=== PATIENT | female | born 1965 | race Caucasian/White ===

== ENCOUNTER 2021-10-25 21:06 | Inpatient (IN) | payer MEDICAID, SELFPAY ==
[2021-10-25] VITALS (16 sets, daily range): BP systolic 217–282; BP diastolic 122–180; PULSE 64–94; RESP 13–31; TEMP 36.8–36.9; O2SAT 97
--- NOTE | ~2021-10-25 | XR_ITS ---
EXAMINATION: XR chest 2V EXAM DATE: 10/25/2021 22:20 INDICATION: Dyspnea x1week, epigastric pain [id number] TECHNIQUE: Frontal and lateral projections of the chest obtained and reviewed. There is no prior alaina dy for comparison. FINDINGS: The lungs are hyperinflated which can be seen with chronic obstructive pulmonary disease ( a clinical diagnosis of functional impairment), but is not diagnostic of it. Moderate cardiomegaly. N o confluent consolidation, pneumothorax or pleural effusion suspected. There are no osseous abnormali ties identified. IMPRESSION: 1. Cardiomegaly. 2. Hyperinflation. Reviewed, dictated and finalized at location G. TEACHER
--- NOTE | ~2021-10-25 | US_ITS ---
EXAMINATION: US retroperitoneal duplex ltd DATE: 10/31/2021 14:35 INDICATION: Uncontrolled hypertension TECHNIQUE: Multiple grayscale, color Doppler, and pulsed Doppler images of the kidneys and renal morena johanny were obtained. COMPARISON: None. FINDINGS: The aorta peak systolic velocity is 98 cm/s. The right renal artery peak systolic velocity is 57 cm/s in the proximal segment, 118 cm/s in the mid segment, and 71 cm/s in the distal segment. The left re nal artery peak systolic velocity is 133 cm/s in the proximal segment, 129 cm/s in the mid segment, a nd 100 cm/s in the distal segment. No hydronephrosis in either kidney. IMPRESSION: 1. No Doppler evidence of renal artery stenosis. Reviewed, dictated and finalized at location A. ERTY LOSS INSURANCE CLAIM ADJUSTER
--- NOTE | ~2021-10-25 | XR_ITS ---
XR chest 1V portable 10/31/2021 09:55 Indication: Shortness of breath Procedure: AP portable chest Comparison: Comparison to multiple prior studies sequentially, with oldest reviewed study dated 09/2009. Findings: Cardiomegaly. No focal air space disease, pulmonary edema, pleural effusion or suspected pn eumothorax. No acute osseous abnormality. Impression: 1: No acute cardiopulmonary disease. Reviewed, dictated and finalized at location B. Impression: 1: No acute cardiopulmonary disease.
--- NOTE | ~2021-10-25 | US_ITS ---
US abdomen limited INDICATION: Cholecystitis PROCEDURE: Realtime right upper abdominal ultrasound. COMPARISON: No prior studies for comparison. FINDINGS: The pancreas is normal without focal mass or pancreatic ductal dilation. Liver echotexture is normal without focal mass or intrahepatic biliary dilatation. There are calcifications in the ivonne er, consistent with chronic granulomatous disease. There is normal directional flow in the portal vei n. There is a gallstone with mild gallbladder wall thickening. Common bile duct measures 8 mm. There is mild intrahepatic biliary dilatation. No sonographic Lucas's sign. IMPRESSION: 1: Cholelithiasis with gallbladder wall thickening and mild intrahepatic and extrahepatic biliary dil atation. Reviewed, dictated and finalized at location A. T BUYER IMPRESSION: 1: Cholelithiasis with gallbladder wall thickening and mild intrahepatic and ex trahepatic biliary dilatation.
--- NOTE | ~2021-10-25 | XR_ITS ---
EXAMINATION: XR chest 1V portable EXAM DATE: 11/02/2021 05:31 INDICATION: SOB TECHNIQUE: Portable AP frontal chest x-ray was obtained. Comparison is made to prior examination from 10/31/2021. FINDINGS: Linear left midlung zone atelectasis. The lungs are otherwise clear. Mild cardiomegaly. The re is aortic arteriosclerosis. There is no pneumothorax suspected. There are no pleural effusions. Th ere are no osseous abnormalities identified. IMPRESSION: Linear left midlung zone atelectasis. Reviewed, dictated and finalized at location A. ISHER
--- NOTE | ~2021-10-25 | CT_ITS ---
EXAMINATION: CT brain wo con DATE: 10/26/2021 09:36 INDICATION: Nausea and vomiting TECHNIQUE: Computed tomography (CT) of the head was performed without intravenous contrast. Sagittal and coronal reconstructions were performed. The mA was adjusted according to patient size. Iterative reconstruction technique was employed. The dose-length product was 681.00 mGy-cm. COMPARISON: None FINDINGS: No acute intracranial hemorrhage, acute infarction or abnormal extra axial fluid collection. There is moderate scattered white matter hypoattenuation consistent with chronic small vessel ischemic diseas e. Ventricles are normal and symmetric. No mass/mass effect. The orbits, paranasal sinuses and masto id air cells are normal. Intracranial calcified cerebral atherosclerosis is noted at the carotid siph ons. IMPRESSION: 1. Moderate scattered white matter hypoattenuation consistent with chronic small vessel ischemic dise ase. Reviewed, dictated and finalized at location A. TURNER IMPRESSION: 1. Moderate scattered white matter hypoattenuation consistent with chronic smal l vessel ischemic disease.
--- NOTE | ~2021-10-25 | CT_ITS ---
EXAMINATION: CT abdomen pelvis wo con DATE: 10/26/2021 09:36 INDICATION: Nausea and vomiting TECHNIQUE: Computed tomography (CT) of the abdomen and pelvis was performed without intravenous contr ast. Automated exposure control and iterative reconstruction technique were employed. The dose-length product was 661.02 mGy-cm. COMPARISON: None FINDINGS: Mild atelectasis at the bilateral lung bases. Mild cardiomegaly. Atherosclerotic coronary artery calc ification. No pericardial effusion. Large gallstone at the neck of the gallbladder with subtle hazine ss to the pericholecystic fat at the fundus suspicious for acute cholecystitis. Liver, spleen, bilate ral adrenal glands and kidneys are normal. Moderate fatty atrophy of the pancreas. There is mild colo jeny diverticulosis with a sigmoid predominance. There is no adjacent inflammatory change to suggest diverticulitis. Small bowel and appendix are normal. Bladder, uterus and bilateral adnexa are unremar kable. Small amount of likely physiologic free fluid in the pelvis. Mild thoracolumbar spondylosis. IMPRESSION: 1. Cholelithiasis and likely associated acute cholecystitis. Correlate for Lucas sign and could cons ider HIDA scan for further evaluation as clinically indicated. 2. Cardiomegaly. Reviewed, dictated and finalized at location A. BORER IMPRESSION: 1. Cholelithiasis and likely associated acute cholecystitis. Correlate for Murp hy sign and could consider HIDA scan for further evaluation as clinically indic ated. 2. Cardiomegaly.
--- NOTE | ~2021-10-25 | CT_ITS ---
EXAMINATION: CTA chest PE protocol DATE: 10/30/2021 15:29 INDICATION: Hypoxia. TECHNIQUE: Computed tomography (CT) pulmonary angiogram of the chest was performed with 100 mL Omnipa que-350 intravenous contrast. Additional 3D reconstructions utilizing coronal maximum intensity proje ction (MIP) were performed. Automated exposure control and iterative reconstruction technique were em ployed. The dose-length product was 494.90 mGy-cm. COMPARISON: None FINDINGS: Excellent contrast opacification of the pulmonary arteries. There is mild streak artifact from dense contrast in the superior vena cava and right atrium. Minimal scattered motion artifact which does not significantly limit evaluation. No pulmonary embolism. Mild emphysema. Smooth septal line thickening at the right lung base consistent with mild pulmonary edema. Small right pleural effusion. Mild atel ectasis at the basilar left lower lobe and lingula. No pneumonia or left pleural effusion. Cardiomega ly with left ventricular hypertrophy. The thickened anteroseptal wall of the left ventricle appears t o narrow the left ventricular outflow tract relative to the diameter of the aortic valve suggesting p otential for obstructive hypertrophic cardiomyopathy. Mitral annular and both aortic valve and mitral valve calcifications. Atherosclerotic coronary artery calcification. Thoracic aorta is normal in lauri iber with no dissection. No pathologically enlarged thoracic lymphadenopathy. Visualized upper abdome n is unremarkable. There are bridging osteophytes at multiple levels in the spine, consistent with di ffuse idiopathic skeletal hyperostosis (DISH). IMPRESSION: 1. No pulmonary edema present. 2. Mild pulmonary edema at the right lung base and small right pleural effusion likely related to con gestive heart failure. 3. Cardiomegaly with prominent left ventricular hypertrophy which appears to narrow the left ventricu lar outflow tract suggesting possible obstructive hypertrophic cardiomyopathy. Reviewed, dictated and finalized at location A. E RIDER SUPERVISOR IMPRESSION: 1. No pulmonary edema present. 2. Mild pulmonary edema at the right lung base and small right pleural effusion likely related to congestive heart failure. 3. Cardiomegaly with prominent left ventricular hypertrophy which appears to na rrow the left ventricular outflow tract suggesting possible obstructive hypertr ophic cardiomyopathy.
--- NOTE | 2021-10-25 21:58 | ECG_ITS ---
Measurements Intervals [place] Rate: 86 P: 74 NE: 156 QRS: 102 QRSD: 102 T: 261 QT: 390 QTc: 469 Interpretive Statements SINUS RHYTHM ATRIAL PREMATURE COMPLEX LEFT ATRIAL ENLARGEMENT RIGHT AXIS DEVIATION LEFT VENTRICULAR HYPERTROPHY DELAYED PRECORDIAL R/S TRANSITION ST-T WAVE ABNORMALITY IN INFERIOR LEADS- CONSIDER ISCHEMIA BASELINE ARTIFACT- AVR, V1, V3-V6 ABNORMAL ECG Electronically Signed On 10-26-2021 8:13:56 LIFE SCIENCE TECHNICAL OFFICER by Thom Jay D.O.
[2021-10-25 22:45] LABS: Alanine Aminotransferase 23 U/L (4-35); Alkaline Phosphatase 111 U/L (38-126); Anion Gap 12 mmol/L (8-16); Aspartate Amino Transferase 31 U/L (14-36); Blood Urea Nitrogen 29 mg/dL (7-17); Calcium 9.4 mg/dL (8.4-10.2); Carbon Dioxide 25 mmol/L (22-30); Chloride 95 mmol/L (98-107); Estimated CRCL calculation 51 ml/min; Estimated Glomerular Filt Rate 51; Glucose 146 mg/dL (65-110); Lipase 89 U/L (23-300); Potassium 3.7 mmol/L (3.4-5.0); Sodium 132 mmol/L (137-145)
[2021-10-25 22:47] LABS: INR 1.3; Prothrombin Time 15.2 Seconds (11.1-14.7)
[2021-10-25 22:48] LABS: Partial Thromboplastin Time 28.1 SECONDS (22.3-36.8)
[2021-10-25 23:07] LABS: Troponin I 0.112 ng/mL (0.000-0.034)
[2021-10-25 23:21] LABS: Basophils Absolute Auto 0.1 K/mm3 (0.0-0.1); Basophils Percent Auto 0.8 % (0.2-1.2); Eosinophils Absolute Auto 0.1 K/mm3 (0-0.3); Eosinophils Percent Auto 0.8 % (0-4.4); Hematocrit 43.6 % (37.0-47.0); Hemoglobin 13.4 g/dL (12.0-15.0); Immature Granulocyte Absolute 0.04 K/mm3 (0.00-0.031); Immature Granulocyte Percent A 0.4 % (0-0.5); Lymphocytes Absolute Auto 2.34 K/mm3 (0.9-3.2); Mean Corpuscular HGB Conc 30.7 g/dl (32-36); Mean Corpuscular Hemoglobin 25.1 pg (26-34); Mean Corpuscular Volume 81.6 fl (80-100); Monocytes Absolute Auto 1.2 K/mm3 (0.1-0.6); Monocytes Percent Auto 11.3 % (2.6-8.5); Neutrophils Absolute Auto 6.5 K/mm3 (1.3-6.7); Neutrophils Percent Auto 63.7 % (45.5-73.1); Platelet Count Result 270 k/mm3 (150-375); Red Blood Count 5.34 M/mm3 (4.2-5.4); Red Cell Distribution Width 16.1 % (11.5-14.5); White Blood Count 10.2 K/mm3 (4.5-10.0)
[2021-10-25] MEDS: LABETALOL HCL INJ 100 MG/20 ML VIAL 20 MG IV PUSH (23:31)
[2021-10-25] MEDS: ASPIRIN 81 MG CHEWABLE TABLET 324 MG PO (23:32)
--- NOTE | 2021-10-25 23:43 | ED.GENADULT ---
HPI - General Adult General Chief complaint: Shortness of Breath/Dyspnea Stated complaint: SOB, nausea Time Seen by Provider: 10/25/21 21:59 History of Present Illness HPI narrative: Patient is a 56-year-old female who presents to the ER with exertional dyspnea. Ongoing for the last week. Reports is becoming quite debilitating. Denies chest pain or chest pressure at rest. Reports history of CA as well as hypertension for which she is unmedicated. Patient found to have markedly elevated blood pressure in the 280s upon arrival. Related Data Home Medications Medication Instructions Recorded Confirmed No Home Medications 10/26/21 10/26/21 Allergies Allergy/AdvReac Type Severity Reaction Status Date / Time No Known Allergies Verified 09/09/10 08:30 Review of Systems Review of Systems: All systems reviewed & are unremarkable except as noted in HPI and below Constitutional: Constitutional: Denies chills, Denies fever(s) and Reports weakness ENT: Denies nasal congestion and Denies sore throat Cardiovascular: Cardiovascular: Denies chest pain, Denies rapid heart rate and Denies radiating jaw, neck or arm pain PMFSH Social History Social History Smoking packs per day: 0.5 Smoking cigarettes per day: 10.0 Years smoked: 40 Smoking pack-years: 20.00 Smoking status: Current every day smoker Tobacco type: cigarettes Alcohol intake: never Substance use: current Substance use type: marijuana Other substance usage details: on occasion smokes marijuana Spiritual care concerns: No Exam Narrative: GENERAL: Uncomfortable-appearing, well-nourished, and in no acute distress. HEAD: Normocephalic, atraumatic. EYES: PERRL and EOMI. ENT: Mucous membranes moist. CHEST: Clear to auscultation. No respiratory distress. HEART: Regular rate and rhythm. Normal peripheral pulses. ABDOMEN: Soft, nontender, nondistended. EXTREMITIES: Normal range of motion. No edema. SKIN: Warm, dry, no rash. NEURO: Alert and oriented x3. PSYCH: Normal mood and affect. Course Course Emergency Course: Admit to hospitalist service. Labetalol given which decreased blood pressure to 211 systolic. Patient now with some nausea and given Zofran. Admit for blood pressure control. Vital Signs Vital signs: Vital Signs Temperature 98.5 F 10/25/21 21:25 Pulse Rate 94 10/25/21 21:25 Respiratory Rate 24 H 10/25/21 21:25 Pulse Oximetry 97 10/25/21 21:25 Temperature 98 F 10/26/21 20:00 Pulse Rate 62 10/26/21 20:00 Respiratory Rate 17 10/26/21 20:00 Blood Pressure 146/70 H 10/26/21 20:00 Pulse Oximetry 94 10/26/21 20:00 Medical Decision Making Vital Signs Vital Signs: Vital Signs Temperature 98.5 F 10/25/21 21:25 Pulse Rate 94 10/25/21 21:25 Respiratory Rate 24 H 10/25/21 21:25 Pulse Oximetry 97 10/25/21 21:25 Temperature 98 F 10/26/21 20:00 Pulse Rate 62 10/26/21 20:00 Respiratory Rate 17 10/26/21 20:00 Blood Pressure 146/70 H 10/26/21 20:00 Pulse Oximetry 94 10/26/21 20:00 Lab Data Result diagrams: 10/26/21 04:26 10/26/21 04:20 Labs: Lab Results 10/25/21 10/25/21 10/25/21 Range/Units 22:27 22:27 22:27 WBC 10.2 H (4.5-10.0) K/mm3 RBC 5.34 (4.2-5.4) M/mm3 Hgb 13.4 (12.0-15.0) g/dL Hct 43.6 (37.0-47.0) % MCV 81.6 (80-100) fl MCH 25.1 L (26-34) pg MCHC 30.7 L (32-36) g/dl RDW 16.1 H (11.5-14.5) % Plt Count 270 (150-375) k/mm3 MPV 13.0 H (7.4-10.4) fl Immature Gran % (Auto) 0.4 (0-0.5) % Neut % (Auto) 63.7 (45.5-73.1) % Lymph % (Auto) 23.0 (18.3-44.2) % [place] % (Auto) 11.3 H (2.6-8.5) % Eos % (Auto) 0.8 (0-4.4) % Baso % (Auto) 0.8 (0.2-1.2) % Lymph # (Auto) 2.34 (0.9-3.2) K/mm3 [place] # (Auto) 1.2 H (0.1-0.6) K/mm3 Eos # (Auto) 0.1 (0-0.3) K/mm3 Baso # (Auto) 0.1 (0.0-0.
[2021-10-26] VITALS (22 sets, daily range): BP systolic 146–228; BP diastolic 68–130; PULSE 57–66; RESP 11–25; TEMP 36.2–36.8; O2SAT 94–100; BMI 30.9
--- NOTE | 2021-10-26 | ECHO_ITS ---
Patient Info Name: Daniela Sanches Age: 56 years : 1965 Gender: Female Ht: 64 in Wt: 180 lbs BSA: 1.95 m2 HR: 58 bpm BP: 156 / 68 mmHg Heart Rhythm: Sinus Rhythm Technical Quality: Good Exam Date: 10/26/2021 10:12 AM Exam Location: [facility] Patient Status: Inpatient Admit Date: 10/25/2021 Staff Ordering Physician: Rachel Burris MD Middleware Consultant: Ellen Adkins RDCS Attending Provider: Rachel Burris MD Referring Physician: [place] ROSS; Exam Type: CA echo doppler color flow Study Info Indications I11.0 - Hypertensive heart disease with heart failure Complete two-dimensional, color flow and Doppler transthoracic echocardiogram is performed. Summary 1. Complete two-dimensional, color flow and Doppler transthoracic echocardiogram is performed. 2. Left ventricular systolic function is low normal, estimated at 50-55%. 3. Speckled/hyperechoic pattern of the myocardium, consider infiltrative cardiomyopathy. 4. Left ventricular chamber dimension is normal. 5. There is severely increased left ventricular wall thickness. 6. The left ventricular diastolic function is grade II diastolic dysfunction. 7. There is moderately increased right ventricular wall thickness. 8. Left atrial chamber dimension is moderately enlarged. 9. There is mild aortic valve regurgitation. 10. There is mild mitral valve regurgitation. 11. There is mild tricuspid valve regurgitation. 12. Mild pulmonary hypertension, estimated pulmonary arterial systolic pressure is 40 mmHg. 13. There is mild pulmonic regurgitation. Left Ventricle Left ventricular systolic function is low normal, estimated at 50-55%. Speckled/hyperechoic pattern of the myocardium, consider infiltrative cardiomyopathy. Left ventricular chamber dimension is normal. There is severely increased left ventricular wall thickness. The left ventricular diastolic function is grade II diastolic dysfunction. Right Ventricle There is moderately increased right ventricular wall thickness. Right ventricular chamber dimension is normal. Right ventricular systolic function is normal. Left Atria Left atrial chamber dimension is moderately enlarged. Right Atria Right atrial chamber dimension is normal. Atrial Septum Intact interatrial septum visualized by color flow imaging. Aortic Valve The aortic valve is trileaflet. There is mild aortic valve sclerosis. There is no aortic valve stenosis. There is mild aortic valve regurgitation. Pulmonic Valve The pulmonic valve is normal. There is no pulmonic valve stenosis. There is mild pulmonic regurgitation. Mitral Valve The mitral valve has calcified annulus. There is no mitral valve stenosis. There is mild mitral valve regurgitation. Tricuspid Valve The tricuspid valve leaflets are normal. There is no significant tricuspid valve stenosis. There is mild tricuspid valve regurgitation. Mild pulmonary hypertension, estimated pulmonary arterial systolic pressure is 40 mmHg. Pericardium/Pleural The pericardium appears normal. There is trivial pericardial effusion. Inferior Vena Cava Normal inferior vena cava with <50% collapse upon inspiration consistent with elevated right atrial pressure, 10 mmHg. Aorta The aortic root size at the sinus of Valsalva is normal. Left Ventricular Outflow Tract Name Value Normal ----
[2021-10-26 00:46] LABS: SARS-CoV-2 RNA PCR Negative
[2021-10-26] MEDS: ONDANSETRON INJ 4 MG/2 ML VIAL IV PUSH ×4 (00:59→11:32)
[2021-10-26] MEDS: MORPHINE SULFATE (*CRX) 4 MG/ML INJ IV PUSH ×4 (00:59→11:33)
[2021-10-26 01:43] LABS: Troponin I 0.104 ng/mL (0.000-0.034)
--- NOTE | 2021-10-26 01:49 | PM.IMHP ---
H&P: HPI History of Present Illness Date/Time: 10/26/21 01:49 Chief Complaint: SHORTNESS OF BREATH Narrative: This is a 56-year-old female with past medical history significant for hypertension patient states that he has not she has not been taking her medications for a long time has been having daily headaches and shortness of breath for about a month finally decided to come to the emergency room due to nausea but no vomiting and just not feeling well overall. Patient denies any near-syncope,syncope, leg swelling, cough, sputum production, fevers, rigors or chills, no abdominal pain. Upon arrival to emergency room patient was found to have a systolic blood pressure of 280 with a diastolic of 180. Preliminary workup was significant for mildly elevated troponin. Patient has been admitted for further evaluation management and treatment Review of Systems Review of Systems: Shortness of breath, nausea, blurry vision headache daily headaches. Constitutional: Constitutional: Denies chills, Reports fatigue, Denies fever(s), Reports headache(s), Reports lethargy and Denies night sweats Eyes: Eyes: Reports blurry vision ENT: Denies dysphagia, Denies vertigo, Denies dizziness, Denies nasal congestion, Denies nasal discharge, Denies nasal obstruction and Denies odynophagia Cardiovascular: Cardiovascular: Denies claudication, Denies leg edema, Denies lightheadedness, Denies radiating jaw, neck or arm pain, Denies palpitations, Denies dyspnea on exertion and Denies orthopnea Respiratory: Respiratory: Denies cough Gastrointestinal: Gastrointestinal: Denies abdominal pain, Denies dyspepsia, Denies heartburn, Reports nausea and Denies vomiting Genitourinary: Genitourinary: Reports no additional female genitourinary complaints and Reports as per HPI Musculoskeletal: Musculoskeletal: Denies arthralgias Integumentary/Breasts: Skin/Breast: Denies rash Neurologic: Denies vertigo, Denies dizziness, Denies syncope, Denies focal weakness and Denies Sensory deficit (Neuro) Psychiatric: Psychiatric: Reports no additional psychiatric complaints and Reports as per HPI Endocrine: Endocrine: Denies cold intolerance, Denies heat intolerance, Denies polyphagia, Denies polydipsia and Denies palpitations Hematologic/Lymphatic: Hematologic/Lymphatic: Reports no additional hematologic/lymphatic complaints and Reports as per HPI Allergic/Immunologic: Allergic/Immunologic: Reports no additional allergic/immunologic complaints and Reports as per [facility] Social History Social History Smoking packs per day: 0.5 Smoking cigarettes per day: 10.0 Years smoked: 40 Smoking pack-years: 20.00 Smoking status: Current every day smoker Tobacco type: cigarettes Alcohol intake: never Substance use: current Substance use type: marijuana Other substance usage details: on occasion smokes marijuana Spiritual care concerns: No Meds Home Medications and Allergies Home Medications Medication Instructions Recorded Confirmed Type No Home Medications 10/26/21 10/26/21 History Allergies Allergy/AdvReac Type Severity Reaction Status Date / Time No Known Allergies Verified 09/09/10 08:30 Vital Signs Vital Signs - 24 hr 10/25/21 21:25 10/25/21 21:43 10/25/21 21:44 Temperature 98.5 F 98.2 F Pulse Rate 94 93 90 Respiratory Rate 24 H 28 H 27 H Blood Pressure 249/164 H Pulse Oximetry 97 97 10/25/21 21:45 10/25/21 21:50 10/25/21 21:51 Temperature Pulse Rate 85 83 85 Respiratory Rate 31 H 27 H 24 H Blood Pressure 267/144 H 249/163 H Pulse Oximetry 10/25/21 21:57 10/25/21 22:00 10/25/21 22:20 Temperature Pulse Rate 83 92 Respiratory Rate 29 H 26 H Blood Pressure 282/180 H Pulse Oximetry 10/25/21 22:30 10/25/21 22:45 10/25/21 23:00 Temperature Pulse Rate 85 86 88 Respiratory Rate 17 29 H 27 H Blood Pressure Pulse Oximetry 10/25/21 23:18 10/25/21 23:28 10/25/21 23:30 Temperature
[2021-10-26] MEDS: hydrALAZINE HCL 20 MG/ML VIAL 10 MG IV PUSH ×2 (02:36→09:42)
[2021-10-26 05:33] LABS: Troponin I 0.082 ng/mL (0.000-0.034)
--- NOTE | 2021-10-26 08:33 | PM.IMPN ---
Progress Note: A&P Assessment and Plan (1) Hypertensive emergency: Code(s): I16.1 - Hypertensive emergency Status: Acute Assessment and Plan: inital BP more than 200/120. recevied iv labetalol and iv hydralazine overnight. will initiate amlod 5 and losaran 25. bb if HR improves, running sinus bradycardic in 50s currently. did receive labetalol last night. heart healthy diet. echo pending. cxr with cardiomegaly. EKG with RAD, LVH and ST T changes likely strain pattern. may need to check apnea link. BMI 31, RAD on EKG, await ECHO as well. renal function is adequate, no other end organ damage signs/symptoms. (2) Elevated troponin: Code(s): R77.8 - Other specified abnormalities of plasma proteins Status: Acute Assessment and Plan: Suspect type [address] EKG changes could be strain pattern from LVH, troponins trending down. will need ischemic evaluation for further care cardiology has been consulted from the ED, await their recommendations No chest pain at present time (3) Nausea & vomiting: Code(s): R11.2 - Nausea with vomiting, unspecified Status: Acute Assessment and Plan: will check ct abodmen and also ct head to rule out any intracranial and intraabodminal pathology. check urine but no urinary symptoms rpoerted. add protnix, compazine iv prn. (4) Tobacco abuse: Code(s): Z72.0 - Tobacco use Status: Acute Assessment and Plan: long erm smoking history Subjective Date/time seen: 10/26/21 08:33 Interval history: HPI: This is a 56-year-old female with past medical history significant for hypertension patient states that she has not been taking her medications for a long time has been having daily headaches and shortness of breath for about a month finally decided to come to the emergency room due to nausea but no vomiting and just not feeling well overall. Patient denies any near-syncope,syncope, leg swelling, cough, sputum production, fevers, rigors or chills, no abdominal pain. Upon arrival to emergency room patient was found to have a systolic blood pressure of 280 with a diastolic of 180. Preliminary workup was significant for mildly elevated troponin. Patient has been admitted for further evaluation management and treatment 10/26/2021: patient reports having on and off vomiting this am, bp is noted to be lower at 152/95 on monitor. she denies any chest pain. she does rpeorts abodminal pain in upper abdomen. she threw up twice while during my evaluation. she jus treceived zofran. Review of Systems Review of Systems: All systems reviewed & are unremarkable except as noted in HPI and below (HPI) Exam Narrative: GENERAL: The patient is well developed, in mild distress HEENT: Nonicteric sclerae, PERRLA, EOMI. Oropharynx clear. Moist mucous membranes. Conjunctivae appear well perfused. CHEST: Chest wall is nontender. HEART: Regular rate and rhythm without murmur, rubs, or gallops LUNGS: decreased breath sounds bilaterally. no respiratory distress ABDOMEN: Soft, positive bowel sounds, mild tender epigastric area, no organomegaly. SKIN: No rash, no excessive bruising, petechiae, or purpura. NEUROLOGIC: Cranial nerves II-XII intact, alert and oriented x 3, no gross motor deficits EXTREMITIES: no edema, cyanosis or clubbing Extrem: General: normal exam except as noted and no edema Objective Data Vital Signs Vital Signs: Vital Signs - 24 hr 10/25/21 21:25 10/25/21 21:43 10/25/21 21:44 Temperature 98.5 F 98.2 F Pulse Rate 94 93 90 Respiratory Rate 24 H 28 H 27 H Blood Pressure 249/164 H Pulse Oximetry 97 97 10/25/21 21:45 10/25/21 21:50 10/25/21 21:51 Temperature Pulse Rate 85 83 85 Respiratory Rate 31 H 27 H 24 H Blood Pressure 267/144 H 249/163 H Pulse Oximetry 10/25/21 21:57 10/25/21 22:00 10/25/21 22:20 Temperature Pulse Rate 83 92 Respiratory Rate 29 H 26 H Blood Pressure 282/180 H Pulse Oximetry 10/25/21
[2021-10-26] MEDS: PROCHLORPERAZINE EDISYLATE 10 MG/2 ML VIAL IV PUSH (09:14)
[2021-10-26] MEDS: amLODIPine BESYLATE 5 MG TABLET PO (10:36)
[2021-10-26] MEDS: LOSARTAN POTASSIUM 25 MG TABLET PO (10:36)
[2021-10-26] MEDS: PANTOPRAZOLE SODIUM IV 40 MG VIAL IV PUSH (10:38)
[2021-10-26 10:57] LABS: Basophils Absolute Auto 0.1 K/mm3 (0.0-0.1); Basophils Percent Auto 0.7 % (0.2-1.2); Eosinophils Percent Auto 0.2 % (0-4.4); Hematocrit 44.7 % (37.0-47.0); Hemoglobin 13.1 g/dL (12.0-15.0); Immature Granulocyte Absolute 0.05 K/mm3 (0.00-0.031); Immature Granulocyte Percent A 0.6 % (0-0.5); Immature Platelet Fraction Pct 16.3 % (0.9-11.2); Lymphocytes Absolute Auto 1.15 K/mm3 (0.9-3.2); Lymphocytes Percent Auto 12.7 % (18.3-44.2); Mean Corpuscular HGB Conc 29.3 g/dl (32-36); Mean Corpuscular Volume 85.5 fl (80-100); Mean Platelet Volume 13.4 fl (7.4-10.4); Monocytes Absolute Auto 0.8 K/mm3 (0.1-0.6); Monocytes Percent Auto 8.3 % (2.6-8.5); Neutrophils Percent Auto 77.5 % (45.5-73.1); Platelet Count Result 236 k/mm3 (150-375); Red Blood Count 5.23 M/mm3 (4.2-5.4); Red Cell Distribution Width 16.1 % (11.5-14.5); White Blood Count 9.1 K/mm3 (4.5-10.0)
[2021-10-26 11:16] LABS: Alanine Aminotransferase 28 U/L (4-35); Albumin Level 3.8 g/dL (3.5-5.1); Alkaline Phosphatase 99 U/L (38-126); Anion Gap 12 mmol/L (8-16); Aspartate Amino Transferase 78 U/L (14-36); Blood Urea Nitrogen 31 mg/dL (7-17); Calcium 9.5 mg/dL (8.4-10.2); Carbon Dioxide 21 mmol/L (22-30); Chloride 98 mmol/L (98-107); Estimated CRCL calculation 47 ml/min; Estimated Glomerular Filt Rate 46; Glucose 166 mg/dL (65-110); Potassium 4.1 mmol/L (3.4-5.0); Sodium 131 mmol/L (137-145)
[2021-10-26 11:45] LABS: Anisocytosis 2+ (NORMAL); Ovalocytes 1+ (NORMAL); Platelet Estimate Adequate (Adequate)
--- NOTE | 2021-10-26 13:19 | PM.CNGS ---
Assessment and Plan Assessment and plan (1) Acute calculous cholecystitis: Code(s): K80.00 - Calculus of gallbladder with acute cholecystitis without obstruction Status: Acute Assessment and Plan: I have reviewed the CT and discussed the findings with the patient. Will await further cardiac workup with echocardiogram to ensure patient will be safe to tolerate surgery. Discussed possibly proceeding with laparoscopic cholecystectomy in the next 1-2 days if medically stable. Continue bowel rest and antibiotics currently and continue treating blood pressure as per hospitalist. (2) Tobacco abuse: Code(s): Z72.0 - Tobacco use Status: Acute (3) Hypertensive emergency: Code(s): I16.1 - Hypertensive emergency Status: Acute (4) Elevated troponin: Code(s): R77.8 - Other specified abnormalities of plasma proteins Status: Acute History of Present Illness Consult details Consult date: 10/26/21 Requesting physician: Adalid Dodge MD Narrative: This is a 56-year-old woman who presented to the hospital with dyspnea on exertion, epigastric abdominal pain, and nausea and vomiting. She has had the abdominal pain for about 2 days. She does not recall anything that she ate that caused this. She does state that she was told several years ago that she had a gallbladder problem but never followed up to have surgery. Her blood pressure was very high in the emergency department and she had elevated troponins, therefore she was admitted for further cardiac workup. She has had persistent nausea and vomiting, therefore CT of her abdomen and pelvis was obtained and this showed evidence of cholelithiasis and probable cholecystitis. Review of Systems Review of Systems: All systems reviewed & are unremarkable except as noted in HPI and below Constitutional: Constitutional: Denies chills and Denies fever(s) Eyes: Eyes: Denies change in vision ENT: Denies hearing loss, Denies neck pain and Denies sore throat Cardiovascular: Cardiovascular: Denies chest pain and Denies dyspnea Respiratory: Respiratory: Denies cough, Denies dyspnea and Denies wheezing Gastrointestinal: Gastrointestinal: Reports as per HPI Genitourinary: Genitourinary: Denies hematuria and Denies dysuria Musculoskeletal: Musculoskeletal: Denies arthralgias, Denies joint swelling and Denies neck pain Allergic/Immunologic: Allergic/Immunologic: Denies wheezing [facility] Social History Social History Smoking packs per day: 0.5 Smoking cigarettes per day: 10.0 Years smoked: 40 Smoking pack-years: 20.00 Smoking status: Current every day smoker Tobacco type: cigarettes Alcohol intake: never Substance use: current Substance use type: marijuana Other substance usage details: on occasion smokes marijuana Spiritual care concerns: No Meds Home Medications and Allergies Home Medications Medication Instructions Recorded Confirmed Type No Home Medications 10/26/21 10/26/21 History Allergies Allergy/AdvReac Type Severity Reaction Status Date / Time No Known Allergies Verified 09/09/10 08:30 Vital Signs Vital Signs - 24 hr 10/25/21 21:25 10/25/21 21:43 10/25/21 21:44 Temperature 36.9 C 36.8 C Pulse Rate 94 93 90 Respiratory Rate 24 H 28 H 27 H Blood Pressure 249/164 H Pulse Oximetry 97 97 10/25/21 21:45 10/25/21 21:50 10/25/21 21:51 Temperature Pulse Rate 85 83 85 Respiratory Rate 31 H 27 H 24 H Blood Pressure 267/144 H 249/163 H Pulse Oximetry 10/25/21 21:57 10/25/21 22:00 10/25/21 22:20 Temperature Pulse Rate 83 92 Respiratory Rate 29 H 26 H Blood Pressure 282/180 H Pulse Oximetry 10/25/21 22:30 10/25/21 22:45 10/25/21 23:00 Temperature Pulse Rate 85 86 88 Respiratory Rate 17 29 H 27 H Blood Pressure Pulse Oximetry 10/25/21 23:18 10/25/21 23:28 10/25/21 23:30 Temperat
[2021-10-26 15:07] LABS: Add Urine Microscopic? YES; Appearance Urine Cloudy (Clear); Bilirubin Urine Negative (Negative); Blood Urine 1+ (Negative); Color Urine Yellow (Yellow); Glucose Urine UA Negative (Negative); Ketones Urine Negative (Negative); Leukocyte Esterase Ur 3+ LEU/UL (NEGATIVE); Mucus Urine Rare /lpf; Nitrate Urine Negative (Negative); Protein Urine 2+ mg/dL (Negative); RBC Urine 21-50 /hpf (0-2); Specific Grav Ur 1.023 (1.001-1.035); Squamous Epithelial Cell Urine Few /hpf (Few); Urobilinogen Urine Negative mg/dL (<2.0); WBC Urine >75 /hpf (0-3)
[2021-10-27] VITALS (14 sets, daily range): BP systolic 91–181; BP diastolic 57–93; PULSE 60–70; RESP 15–28; TEMP 36.4–36.6; O2SAT 92–100
[2021-10-27 06:11] LABS: Hematocrit 43.5 % (37.0-47.0); Hemoglobin 12.8 g/dL (12.0-15.0); Mean Corpuscular HGB Conc 29.4 g/dl (32-36); Mean Corpuscular Hemoglobin 25.1 pg (26-34); Mean Corpuscular Volume 85.3 fl (80-100); Mean Platelet Volume 12.6 fl (7.4-10.4); Platelet Count Result 256 k/mm3 (150-375); White Blood Count 11.2 K/mm3 (4.5-10.0)
[2021-10-27 06:28] LABS: Alanine Aminotransferase 23 U/L (4-35); Albumin Level 3.4 g/dL (3.5-5.1); Alkaline Phosphatase 90 U/L (38-126); Anion Gap 5 mmol/L (8-16); Aspartate Amino Transferase 27 U/L (14-36); Bilirubin,Total 0.8 mg/dL (0.2-1.3); Blood Urea Nitrogen 26 mg/dL (7-17); Calcium 9.2 mg/dL (8.4-10.2); Carbon Dioxide 32 mmol/L (22-30); Chloride 96 mmol/L (98-107); Estimated CRCL calculation 47 ml/min; Estimated Glomerular Filt Rate 46; Glucose 128 mg/dL (65-110); Potassium 3.8 mmol/L (3.4-5.0); Sodium 133 mmol/L (137-145)
[2021-10-27] MEDS: LOSARTAN POTASSIUM 25 MG TABLET PO (09:19)
[2021-10-27] MEDS: amLODIPine BESYLATE 5 MG TABLET PO ×2 (09:19→10:58)
[2021-10-27] MEDS: SODIUM CHLORIDE 0.9% IV 1,000 ML 60 ML IV CONT (09:25)
[2021-10-27] MEDS: PANTOPRAZOLE SODIUM IV 40 MG VIAL IV PUSH (09:26)
--- NOTE | 2021-10-27 09:35 | PM.IMPN ---
Progress Note: A&P Assessment and Plan (1) Hypertensive emergency: Code(s): I16.1 - Hypertensive emergency Status: Acute Assessment and Plan: inital BP more than 200/120. recevied iv labetalol and iv hydralazine overnight. initiated amlod 5 and losaran 25. bb if HR improves, running sinus bradycardic in 50s currently. did receive labetalol 10/26 heart healthy diet. echo with normal EF, inccreasd Rgiht and Left wall thicknes, likely relatd to hypertensive heart disease cxr with cardiomegaly. EKG with RAD, LVH and ST T changes likely strain pattern. may need to check apnea link. BMI 31, RAD on EKG, echo reviewed. will order apnea link for tonight renal function is adequate, no other end organ damage signs/symptoms. will increase amlodipine to 10, stay on losartan 25 today. adjust as she has improved oral intake or able to tolerate oral. (2) Elevated troponin: Code(s): R77.8 - Other specified abnormalities of plasma proteins Status: Acute Assessment and Plan: Suspect type 2 IA EKG changes could be strain pattern from LVH, troponins trending down. will need ischemic evaluation for further care cardiology has been consulted from the ED, apparently not. will order one today for their evlauation peretaining to hypertensive heart dsiease and elevvated troponin. Presurgical evaluation as well for planned cholecystectomy No chest pain at present time (3) Nausea & vomiting: Code(s): R11.2 - Nausea with vomiting, unspecified Status: Acute Assessment and Plan: CT abdomen with acute calculous cholecystitis. npo. morphine. iv zosyn started. improved today. abdomen US reviewd. will start clear liquid diet today gentle ivf. protonix iv compazine prn (4) Tobacco abuse: Code(s): Z72.0 - Tobacco use Status: Acute Assessment and Plan: long erm smoking history (5) Acute calculous cholecystitis: Code(s): K80.00 - Calculus of gallbladder with acute cholecystitis without obstruction Status: Acute (6) Hypertensive heart disease: Code(s): I11.9 - Hypertensive heart disease without heart failure Status: Acute Subjective Date/time seen: 10/27/21 09:35 Interval history: HPI: This is a 56-year-old female with past medical history significant for hypertension patient states that she has not been taking her medications for a long time has been having daily headaches and shortness of breath for about a month finally decided to come to the emergency room due to nausea but no vomiting and just not feeling well overall. Patient denies any near-syncope,syncope, leg swelling, cough, sputum production, fevers, rigors or chills, no abdominal pain. Upon arrival to emergency room patient was found to have a systolic blood pressure of 280 with a diastolic of 180. Preliminary workup was significant for mildly elevated troponin. Patient has been admitted for further evaluation management and treatment 10/26/2021: patient reports having on and off vomiting this am, bp is noted to be lower at 152/95 on monitor. she denies any chest pain. she does rpeorts abodminal pain in upper abdomen. she threw up twice while during my evaluation. she jus treceived zofran. 10/27/21: no overnight evvents, she reports feeling better, no further nausea, vmoiting, denies any abdominal pain as well, no fever, chills. she does report some shortness of breath. no chest pain. Review of Systems Review of Systems: All systems reviewed & are unremarkable except as noted in HPI and below (HPI) Exam Narrative: GENERAL: The patient is well developed, in no acute distress HEENT: Nonicteric sclerae, PERRLA, EOMI. Oropharynx clear. Moist mucous membranes. Conjunctivae appear well perfused. CHEST: Chest wall is nontender. HEART: Regular rate and rhythm without murmur, rubs, or gallops LUNGS: decreased breath sounds bilaterally. no respiratory distress ABDOMEN: Soft, positive bowel sounds, nontender,
--- NOTE | 2021-10-27 11:04 | PM.PNGS ---
Progress Note: A&P Assessment and Plan (1) Acute calculous cholecystitis: Code(s): K80.00 - Calculus of gallbladder with acute cholecystitis without obstruction Status: Acute Assessment and Plan: Pain and nausea resolve. Will try low fat diet today. If she tolerates this, OK to discharge home from surgical standpoint. Would recommend remaining on low fat diet and consider laparoscopic cholecystectomy as an outpatient in 6-8 weeks. If she fails diet challenge, then will probably have to keep her here and proceed with Lap luzma during this hospitalization. (2) Tobacco abuse: Code(s): Z72.0 - Tobacco use Status: Acute (3) Hypertensive emergency: Code(s): I16.1 - Hypertensive emergency Status: Acute (4) Elevated troponin: Code(s): R77.8 - Other specified abnormalities of plasma proteins Status: Acute Subjective Subjective Date/Time Seen: 10/27/21 11:04 Interval history: No more abdominal pain, nausea, or vomiting. Hungry. Denies CP/SOB. Exam GI: Inspection: non-distended GI Palp: Yes Soft to palpation, No Tenderness to palpation present (GI), No Guarding due to palpation present (GI) and No Rebound tenderness present Auscultation: normal bowel sounds Objective Data Vital Signs Vital Signs: Vital Signs - 24 hr 10/26/21 11:15 10/26/21 12:00 10/26/21 12:45 Temperature 36.8 C Pulse Rate 59 L 59 L Respiratory Rate 15 Blood Pressure 155/76 H 168/85 H Pulse Oximetry 95 98 10/26/21 13:08 10/26/21 15:59 10/26/21 16:00 Temperature 36.2 C L Pulse Rate 60 60 Respiratory Rate 11 L Blood Pressure 164/79 H 150/72 H Pulse Oximetry 95 94 10/26/21 17:40 10/26/21 20:00 10/26/21 22:00 Temperature 36.6 C Pulse Rate 61 62 60 Respiratory Rate 17 Blood Pressure 146/70 H Pulse Oximetry 94 10/27/21 00:00 10/27/21 02:00 10/27/21 04:00 Temperature 36.6 C 36.6 C Pulse Rate 63 61 61 Respiratory Rate 17 15 Blood Pressure 151/65 H 162/86 H Pulse Oximetry 94 95 10/27/21 06:00 10/27/21 08:00 10/27/21 09:49 Temperature 36.5 C Pulse Rate 69 65 64 Respiratory Rate 17 Blood Pressure 181/82 H Pulse Oximetry 97 Intake/Output Intake/Output: Intake & Output 10/24/21 10/25/21 10/26/21 10/27/21 23:59 23:59 23:59 23:59 Intake Total 340 150 Output Total 800 Balance -460 150 Meds/Results Medications: Active Medications Generic Name Dose Route Start Last Admin Trade Name Freq PRN Reason Stop Dose Admin Amlodipine Besylate 10 mg 10/28/21 09:00 Amlodipine Besylate 5 Mg Tablet PO QAM ROSLYN Hydralazine HCl 10 mg 10/26/21 01:50 10/26/21 09:42 Hydralazine Hcl 20 Mg/Ml Vial IV PUSH 10 mg Q8H PRN Administration Blood Pressure - High [id number] Piperacillin/Tazobactam/Dextrose 3.375 gm in 50 mls @ 100 mls/hr 10/26/21 12:00 10/27/21 06:28 Zosyn 3.375 Gm/D5w 50ml Pm IVPB Infused Q6H ROSLYN Infusion Sodium Chloride 1,000 mls @ 60 mls/hr 10/27/21 08:40 10/27/21 09:25 Normal Saline Iv IV CONT 60 mls/hr .[id number] ROSLYN Administration Losartan Potassium 25 mg 10/26/21 09:00 10/27/21 09:19 Losartan Potassium 25 Mg Tablet PO 25 mg DAILY ROSLYN Administration Morphine Sulfate 4 mg 10/25/21 23:48 10/26/21 11:33 Morphine Sulfate (*Crx) 4 Mg/Ml Inj IV PUSH 4 mg Q2H PRN Administration Pain Rated 7-10 Ondansetron HCl 4 mg 10/25/21 23:48 10/26/21 11:32 Ondansetron Inj 4 Mg/2 Ml Vial IV PUSH 4 mg Q4H PRN Administration Nausea Pantoprazole Sodium 40 mg 10/26/21 09:00 10/27/21 09:26 Pantoprazole Sodium Iv 40 Mg Vial IV PUSH 40 mg QAM ROSLYN Administration Perflutren Lipid Microsphere 0 ml 10/26/21 01:50 Perflutren Lipid Microspheres 1.5 Ml Vial Diluted To 10 Ml Total Volume IV PUSH ONCE PRN adequate visualization Protocol Prochlorperazine Edisylate 10 mg 10/26/21 08:56 10/26/21 09:14 Prochlorperazine Edisylate 10 Mg/2 Ml
--- NOTE | 2021-10-27 13:56 | PM.CNCAR ---
Assessment and Plan Assessment and plan (1) Hypertensive heart disease with heart failure and stage 3 chronic kidney disease: Code(s): I13.0 - Hypertensive heart and chronic kidney disease with heart failure and stage 1 through stage 4 chronic kidney disease, or unspecified chronic kidney disease; N18.30 - Chronic kidney disease, stage 3 unspecified Status: Acute Assessment and Plan: She has severe LVH. She has speckled pattern of the myocardium also. While infiltrative cardiomyopathy could be considered, given her marked hypertension at presentation, it is likely secondary to concentric hypertrophy from years of uncontrolled high blood pressure. Will initiate low-dose carvedilol at 3.25 mg p.o. b.i.d.. Continue losartan. She is on amlodipine at this point. Do not want a lower blood pressure too much too fast as to not to cause a neurological event. Will check a lipid panel. Will start Low-dose aspirin 81 mg p.o. daily. Add statin depending on lipid panel (2) Tobacco abuse: Code(s): Z72.0 - Tobacco use Status: Acute Assessment and Plan: Ongoing. Tobacco abuse counseling performed. (3) Hypertensive emergency: Code(s): I16.1 - Hypertensive emergency Status: Acute (4) Elevated troponin: Code(s): R77.8 - Other specified abnormalities of plasma proteins Status: Acute Assessment and Plan: These troponins are likely secondary to her marked hypertension at presentation. Unlikely acute plaque rupture. There is plan for outpatient laparoscopic cholecystectomy. Therefore will initiate ischemic workup with a Lexiscan myocardial perfusion study tomorrow morning. History of Present Illness History of Present Illness Consult date/time: 10/27/21 13:56 Requesting physician: Adalid Dodge MD Consult reason: hypertension Reason For Visit: uncontrolled htn, elvated troponin Narrative: Reason consultation: Marked hypertension, elevated troponin Date of service 10/27/2021 Requesting provider: Dr. Dodge History: Patient is a 56-year-old female who came to hospital because of worsening shortness of breath. She has been short of breath the past couple weeks. She has history of hypertension but has not been taking any medications for several years due to lack of compliance and follow-up with her primary care provider. She states she did notice that she has had some paroxysmal nocturnal dyspnea, worsening palpitations and worsening edema over the previous couple of weeks prior to admission. She had no chest pain, syncope, presyncope. Echocardiogram was performed which showed severe LVH. Upon admission to the hospital she had blood pressure of around 280/180 mmHg. She also has had some abdominal pain and workup indicates gallstones plus-minus cholecystitis. She currently feels better and has been initiated on some medications with up titration and her blood pressure is reasonably controlled at this point. In the process of workup, troponins were ordered which were minimally elevated. Cardiology consultation was therefore requested Review of Systems Review of Systems: All systems reviewed & are unremarkable except as noted in HPI and below Constitutional: Constitutional: Denies weakness Eyes: Eyes: Denies blurry vision ENT: Reports Normal hearing present Cardiovascular: Cardiovascular: Denies chest pain and Reports leg edema Respiratory: Respiratory: Reports dyspnea Gastrointestinal: Gastrointestinal: Reports abdominal pain Genitourinary: Genitourinary: Denies flank pain Musculoskeletal: Musculoskeletal: Denies neck pain Integumentary/Breasts: Skin/Breast: Reports dry skin and Denies erythema Neurologic: Denies Abnormal speech present Psychiatric: Psychiatric: Denies anxiety Endocrine: Endocrine: Denies excessive sweating Hematologic/Lymphatic: Hematologic/Lymphatic: Denies easy bleeding Allergic/Immunologic: Allergic/Immunologic: Denies GI upset
[2021-10-27 15:41] LABS: Cholesterol 160 mg/dL (0-200); HDL Direct 19 mg/dL; Triglycerides 89 mg/dL (<150)
[2021-10-27 15:51] LABS: LDL Cholesterol Direct 130 mg/dL
[2021-10-27] MEDS: carvediloL 3.125 MG TABLET PO (20:33)
[2021-10-28] VITALS (16 sets, daily range): BP systolic 172–207; BP diastolic 64–91; PULSE 61–93; RESP 17–23; TEMP 35.6–36.5; O2SAT 91–100
[2021-10-28] MEDS: hydrALAZINE HCL 20 MG/ML VIAL 10 MG IV PUSH (00:07)
--- NOTE | 2021-10-28 01:49 | PC.NURSE ---
patient called out to urinate and by the time i entered the room patient was done, she stated that she urinated in her drinking cups and on the floor instead of the bed side commode. patient was encouraged to urinate in the bed side commode.
[2021-10-28 07:23] LABS: Basophils Percent Auto 0.5 % (0.2-1.2); Eosinophils Absolute Auto 0.1 K/mm3 (0-0.3); Eosinophils Percent Auto 1.1 % (0-4.4); Hematocrit 41.3 % (37.0-47.0); Hemoglobin 12.3 g/dL (12.0-15.0); Immature Granulocyte Absolute 0.03 K/mm3 (0.00-0.031); Immature Granulocyte Percent A 0.4 % (0-0.5); Lymphocytes Absolute Auto 0.97 K/mm3 (0.9-3.2); Lymphocytes Percent Auto 11.8 % (18.3-44.2); Mean Corpuscular HGB Conc 29.8 g/dl (32-36); Mean Corpuscular Hemoglobin 24.9 pg (26-34); Mean Corpuscular Volume 83.8 fl (80-100); Mean Platelet Volume 11.9 fl (7.4-10.4); Monocytes Absolute Auto 1.2 K/mm3 (0.1-0.6); Neutrophils Absolute Auto 5.8 K/mm3 (1.3-6.7); Neutrophils Percent Auto 71.2 % (45.5-73.1); Platelet Count Result 247 k/mm3 (150-375); Red Blood Count 4.93 M/mm3 (4.2-5.4); White Blood Count 8.2 K/mm3 (4.5-10.0)
[2021-10-28 07:38] LABS: Alanine Aminotransferase 17 U/L (4-35); Albumin Level 3.1 g/dL (3.5-5.1); Alkaline Phosphatase 78 U/L (38-126); Anion Gap 5 mmol/L (8-16); Aspartate Amino Transferase 27 U/L (14-36); Bilirubin,Total 0.8 mg/dL (0.2-1.3); Blood Urea Nitrogen 14 mg/dL (7-17); Calcium 8.5 mg/dL (8.4-10.2); Carbon Dioxide 33 mmol/L (22-30); Chloride 97 mmol/L (98-107); Estimated CRCL calculation 56 ml/min; Estimated Glomerular Filt Rate 57; Glucose 116 mg/dL (65-110); Magnesium 1.7 mg/dL (1.6-2.3); Potassium 3.2 mmol/L (3.4-5.0); Sodium 135 mmol/L (137-145)
[2021-10-28 08:32] LABS: Platelet Estimate Adequate (Adequate)
--- NOTE | 2021-10-28 10:16 | PM.PNCARD ---
Progress Note: A&P Assessment and Plan (1) Hypertensive heart disease with heart failure and stage 3 chronic kidney disease: Code(s): I13.0 - Hypertensive heart and chronic kidney disease with heart failure and stage 1 through stage 4 chronic kidney disease, or unspecified chronic kidney disease; N18.30 - Chronic kidney disease, stage 3 unspecified Status: Acute Assessment and Plan: She has severe LVH. She has speckled pattern of the myocardium also. While infiltrative cardiomyopathy could be considered, given her marked hypertension at presentation, it is likely secondary to concentric hypertrophy from years of uncontrolled high blood pressure. SBP remains significantly elevated today. Increase carvedilol to 6.25 mg b.i.d. Increase losartan to 50 mg daily Continue amlodipine. Do not want a lower blood pressure too much too fast as to not to cause a neurological event. Continue ASA 81mg daily Start atorvastatin 20mg daily (2) Tobacco abuse: Code(s): Z72.0 - Tobacco use Status: Acute Assessment and Plan: Ongoing. Tobacco abuse counseling performed. (3) Hypertensive emergency: Code(s): I16.1 - Hypertensive emergency Status: Acute (4) Elevated troponin: Code(s): R77.8 - Other specified abnormalities of plasma proteins Status: Acute Assessment and Plan: These troponins are likely secondary to her marked hypertension at presentation. Unlikely acute plaque rupture. There is plan for outpatient laparoscopic cholecystectomy. Will postpone plans for Lexiscan and tell her blood pressure is better controlled. Subjective Date/time seen: 10/28/21 10:16 Not feeling well today. She is complaining feeling of fullness in her chest. She also feels congested. She denies any chest pain, shortness of breath. She was supposed to undergo a nuclear stress test today. However, her systolic blood pressure was 210/120 then 240/100 when it was repeated so unable to do the test today safely. Review of Systems Review of Systems: All systems reviewed & are unremarkable except as noted in HPI and below Constitutional: Constitutional: Denies excessive sweating and Denies weakness Eyes: Eyes: Denies blurry vision ENT: Reports Normal hearing present and Denies neck pain Cardiovascular: Cardiovascular: Denies chest pain, Reports leg edema and Reports dyspnea Respiratory: Respiratory: Reports dyspnea Gastrointestinal: Gastrointestinal: Reports abdominal pain Genitourinary: Genitourinary: Denies flank pain Musculoskeletal: Musculoskeletal: Denies neck pain Integumentary/Breasts: Skin/Breast: Reports dry skin and Denies erythema Neurologic: Reports Normal hearing present, Denies Abnormal speech present and Denies weakness Psychiatric: Psychiatric: Denies anxiety Endocrine: Endocrine: Denies excessive sweating Hematologic/Lymphatic: Hematologic/Lymphatic: Denies easy bleeding Allergic/Immunologic: Allergic/Immunologic: Denies GI upset with certain foods Exam Narrative: Awake alert. Appears stated age Const: General: comfortable and no acute distress HENMT: General nose exam: Normal nares present Eyes: Sclera: sclerae normal Neck: Neck: supple and no JVD Chest: Other: No reproducible chest wall pain to palpation Resp: Auscultation: clear to auscultation bilaterally Cardio: Rate: regular rate Rhythm: regular rhythm GI: Auscultation: normal bowel sounds Skin: General skin exam: normal color Neuro: Cranial nerves: Yes Normal hearing present Cognition (Neuro): normal cognition Speech: normal speech and No Abnormal speech present Extrem: General: normal to inspection Psych: Mental Status: mental status grossly normal Objective Data Vital Signs Vital Signs: Vital Signs - 24 hr 10/27/21 12:00 10/27/21 14:00 10/27/21 15:52 Temperature 36.6 C 36.6 C Pulse Rate 67 66 67 Respiratory Rate 24 H 24 H Blood Pressure 142/57 H 9
[2021-10-28] MEDS: amLODIPine BESYLATE 5 MG TABLET 10 MG PO (10:38)
[2021-10-28] MEDS: ASPIRIN 81 MG ENTERIC TABLET PO (10:38)
[2021-10-28] MEDS: LOSARTAN POTASSIUM 25 MG TABLET PO (10:39)
[2021-10-28] MEDS: carvediloL 3.125 MG TABLET PO (10:39)
[2021-10-28] MEDS: PANTOPRAZOLE SODIUM IV 40 MG VIAL IV PUSH (10:39)
[2021-10-28] MEDS: POTASSIUM CHLORIDE 20 MEQ TABLET PO (10:40)
[2021-10-28] MEDS: SODIUM CHLORIDE 0.9% IV 1,000 ML 60 ML IV CONT (10:50)
--- NOTE | 2021-10-28 14:32 | P.PNIM_ITS ---
Progress Note: A&P Assessment and Plan (1) Hypertensive emergency: Code(s): I16.1 - Hypertensive emergency Status: Acute Assessment and Plan: BP on presentation was 282/180 * Received IV labetalol and hydralazine * Started and amlodipine 10 mg daily and losartan 25 mg daily * She had not been on any antihypertensive medications prior to admission * Appreciate cardiology consultation * Unable to proceed with stress test today as BP elevated again up to 210/140 * She does complain of chest tightness with elevated troponins. No other signs/symptoms of end-organ damage * Echo reviewed which showed LVH with speckled pattern the myocardium consistent with infiltrative cardiomyopathy * Added carvedilol 3.125 mg b.i.d. per Cardiology recommendations * Caution to avoid lowering blood pressure too much and/or too rapidly * ApneaLink reviewed, not concerning for pathologic breathing disorder * Initiated on aspirin 81 mg daily * Continue to monitor blood pressure trends (2) Elevated troponin: Code(s): R77.8 - Other specified abnormalities of plasma proteins Status: Acute Assessment and Plan: Most likely secondary to severe hypertension * Acute coronary syndrome felt to be unlikely per Cardiology evaluation * Ischemic workup including Lexiscan stress test ordered for today but unable to be completed due to hypertension (3) Nausea & vomiting: Code(s): R11.2 - Nausea with vomiting, unspecified Status: Acute Assessment and Plan: Resolved. * Likely secondary to acute cholecystitis * Lipase normal * At this time she is tolerating her diet * Will discontinue IV fluids * Antiemetics available as needed (4) Acute calculous cholecystitis: Code(s): K80.00 - Calculus of gallbladder with acute cholecystitis without obstruction Status: Acute Assessment and Plan: Presented with epigastric abdominal pain, nausea, and vomiting for 2 days * CT of the abdomen/pelvis showed cholelithiasis in likely associated acute cholecystitis * Planning for outpatient cholecystectomy as long as patient continues to tolerate diet * Appreciate general surgery consultation. * Continue low fat diet * IV Zosyn. Continue antibiotics to complete 7 days of therapy * She will need to follow up with general surgery as an outpatient (5) Tobacco abuse: Code(s): Z72.0 - Tobacco use Status: Acute Assessment and Plan: Patient has smoked 1/2 pack per day for 40 years * Continue to reinfoce smoking cessation (6) Hypokalemia: Code(s): E87.6 - Hypokalemia Status: Acute Assessment and Plan: Potassium 3.2 today * Administer 20 mEq PO KCl * Continue to monitor BMP Subjective Date/time seen: 10/28/21 14:32 Interval history: Date of service: 10/28/2021 Daniela Sanches is a 56-year-old female with history of hypertension and tobacco abuse who is seen in follow-up for hypertensive urgency and cholelithiasis. She was not able to have a stress test today as her blood pressure became significantly elevated. She stated she had headache when this happened but now her headache has resolved. She denies visual changes including flashes or floaters. Denies tinnitus. Denies dizziness or lightheadedness. No palpitations. Denies overt chest pain but does note some tightness, worsened when she takes a deep breath. She has gotten up just to transfer to the bedside commode and admits to feeling unsteady when doing so. She denies abdominal pain, nausea, or vomiting. Denies right upper quadrant
--- NOTE | 2021-10-28 14:32 | PM.IMPN ---
Progress Note: A&P Assessment and Plan (1) Hypertensive emergency: Code(s): I16.1 - Hypertensive emergency Status: Acute Assessment and Plan: BP on presentation was 282/180 Received IV labetalol and hydralazine Started and amlodipine 10 mg daily and losartan 25 mg daily She had not been on any antihypertensive medications prior to admission Appreciate cardiology consultation Unable to proceed with stress test today as BP elevated again up to 210/140 She does complain of chest tightness with elevated troponins. No other signs/symptoms of end-organ damage Echo reviewed which showed LVH with speckled pattern the myocardium consistent with infiltrative cardiomyopathy Added carvedilol 3.125 mg b.i.d. per Cardiology recommendations Caution to avoid lowering blood pressure too much and/or too rapidly ApneaLink reviewed, not concerning for pathologic breathing disorder Initiated on aspirin 81 mg daily Continue to monitor blood pressure trends (2) Elevated troponin: Code(s): R77.8 - Other specified abnormalities of plasma proteins Status: Acute Assessment and Plan: Most likely secondary to severe hypertension Acute coronary syndrome felt to be unlikely per Cardiology evaluation Ischemic workup including Lexiscan stress test ordered for today but unable to be completed due to hypertension (3) Nausea & vomiting: Code(s): R11.2 - Nausea with vomiting, unspecified Status: Acute Assessment and Plan: Resolved. Likely secondary to acute cholecystitis Lipase normal At this time she is tolerating her diet Will discontinue IV fluids Antiemetics available as needed (4) Acute calculous cholecystitis: Code(s): K80.00 - Calculus of gallbladder with acute cholecystitis without obstruction Status: Acute Assessment and Plan: Presented with epigastric abdominal pain, nausea, and vomiting for [address] of the abdomen/pelvis showed cholelithiasis in likely associated acute cholecystitis Planning for outpatient cholecystectomy as long as patient continues to tolerate diet Appreciate general surgery consultation. Continue low fat diet IV Zosyn. Continue antibiotics to complete 7 days of therapy She will need to follow up with general surgery as an outpatient (5) Tobacco abuse: Code(s): Z72.0 - Tobacco use Status: Acute Assessment and Plan: Patient has smoked 1/2 pack per day for 40 years Continue to reinfoce smoking cessation (6) Hypokalemia: Code(s): E87.6 - Hypokalemia Status: Acute Assessment and Plan: Potassium 3.2 today Administer 20 mEq PO KCl Continue to monitor BMP Subjective Date/time seen: 10/28/21 14:32 Interval history: Date of service: 10/28/2021 Daniela Snaches is a 56-year-old female with history of hypertension and tobacco abuse who is seen in follow-up for hypertensive urgency and cholelithiasis. She was not able to have a stress test today as her blood pressure became significantly elevated. She stated she had headache when this happened but now her headache has resolved. She denies visual changes including flashes or floaters. Denies tinnitus. Denies dizziness or lightheadedness. No palpitations. Denies overt chest pain but does note some tightness, worsened when she takes a deep breath. She has gotten up just to transfer to the bedside commode and admits to feeling unsteady when doing so. She denies abdominal pain, nausea, or vomiting. Denies right upper quadrant discomfort. She denies diarrhea. Reports regular bowel movements and regular urination without any symptoms. Review of Systems Review of Systems: All systems reviewed & are unremarkable except as noted in HPI and below Exam Narrative: General: Well-nourished, well-appearing 56 year-old female, sitting up in bed, comfortable, NARD Neuro: awake, alert and oriented x4, speech clear, no focal neuro d
--- NOTE | 2021-10-28 16:12 | PM.PNGS ---
Progress Note: A&P Assessment and Plan (1) Acute calculous cholecystitis: Code(s): K80.00 - Calculus of gallbladder with acute cholecystitis without obstruction Status: Acute Assessment and Plan: Pain and nausea resolved. Continue low fat diet Discharge when medically stable F/U as outpatient to discuss elective lap luzma (2) Tobacco abuse: Code(s): Z72.0 - Tobacco use Status: Acute (3) Hypertensive emergency: Code(s): I16.1 - Hypertensive emergency Status: Acute (4) Elevated troponin: Code(s): R77.8 - Other specified abnormalities of plasma proteins Status: Acute Subjective Subjective Date/Time Seen: 10/28/21 16:12 Interval history: No abdominal pain. Tolerated clears. Was NPO for further cardiac testing today. Exam GI: Inspection: non-distended GI Palp: Yes Soft to palpation, No Tenderness to palpation present (GI), No Guarding due to palpation present (GI) and No Rebound tenderness present Auscultation: normal bowel sounds Objective Data Vital Signs Vital Signs: Vital Signs - 24 hr 10/27/21 18:00 10/27/21 20:00 10/27/21 20:33 Temperature 36.4 C Pulse Rate 68 70 65 Respiratory Rate 28 H Blood Pressure 152/93 H Pulse Oximetry 92 10/27/21 22:00 10/28/21 00:00 10/28/21 01:00 Temperature 35.9 C L Pulse Rate 63 61 Respiratory Rate 17 Blood Pressure 207/86 H 176/64 H Pulse Oximetry 98 10/28/21 02:00 10/28/21 03:56 10/28/21 04:00 Temperature 36.2 C L Pulse Rate 64 72 Respiratory Rate 21 H Blood Pressure 174/83 H Pulse Oximetry 96 91 10/28/21 06:00 10/28/21 08:00 10/28/21 10:00 Temperature 36.3 C L Pulse Rate 70 68 80 Respiratory Rate 20 Blood Pressure 195/76 H Pulse Oximetry 98 10/28/21 10:39 10/28/21 12:00 10/28/21 14:00 Temperature 36.5 C Pulse Rate 65 70 66 Respiratory Rate 18 Blood Pressure 202/91 H Pulse Oximetry 98 Intake/Output Intake/Output: Intake & Output 10/25/21 10/26/21 10/27/21 10/28/21 23:59 23:59 23:59 23:59 Intake Total 340 1000 1280 Output Total 800 1400 1200 Balance -460 -400 80 Meds/Results Medications: Active Medications Generic Name Dose Route Start Last Admin Trade Name Freq PRN Reason Stop Dose Admin Amlodipine Besylate 10 mg 10/28/21 09:00 10/28/21 10:38 Amlodipine Besylate 5 Mg Tablet PO 10 mg QAM ROSLYN Administration Aspirin 81 mg 10/28/21 09:00 10/28/21 10:38 Aspirin 81 Mg Enteric Tablet PO 81 mg QAM ROSLYN Administration Carvedilol 3.125 mg 10/27/21 21:00 10/28/21 10:39 Carvedilol 3.125 Mg Tablet PO 3.125 mg Q12HR ROSLYN Administration Hydralazine HCl 10 mg 10/26/21 01:50 10/28/21 00:07 Hydralazine Hcl 20 Mg/Ml Vial IV PUSH 10 mg Q8H PRN Administration Blood Pressure - High KCG=575 Piperacillin/Tazobactam/Dextrose 3.375 gm in 50 mls @ 100 mls/hr 10/26/21 12:00 10/28/21 13:24 Zosyn 3.375 Gm/D5w 50ml Pm IVPB 100 mls/hr Q6H ROSLYN Administration Losartan Potassium 25 mg 10/26/21 09:00 10/28/21 10:39 Losartan Potassium 25 Mg Tablet PO 25 mg DAILY ROSLYN Administration Morphine Sulfate 4 mg 10/25/21 23:48 10/26/21 11:33 Morphine Sulfate (*Crx) 4 Mg/Ml Inj IV PUSH 4 mg Q2H PRN Administration Pain Rated 7-10 Ondansetron HCl 4 mg 10/25/21 23:48 10/26/21 11:32 Ondansetron Inj 4 Mg/2 Ml Vial IV PUSH 4 mg Q4H PRN Administration Nausea Pantoprazole Sodium 40 mg 10/26/21 09:00 10/28/21 10:39 Pantoprazole Sodium Iv 40 Mg Vial IV PUSH 40 mg QAM ROSLYN Administration Perflutren Lipid Microsphere 0 ml 10/26/21 01:50 Perflutren Lipid Microspheres 1.5 Ml Vial Diluted To 10 Ml Total Volume IV PUSH ONCE PRN adequate visualization Protocol Prochlorperazine Edisylate 10 mg 10/26/21 08:56 10/26/21 09:14 Prochlorperazine Edisylate 10 Mg/2 Ml Vial IV PUSH 10 mg Q6H PRN Administration Nausea And Vomiting Radi
[2021-10-28] MEDS: carvediloL 6.25 MG TABLET PO (21:03)
[2021-10-29] VITALS (16 sets, daily range): BP systolic 128–228; BP diastolic 59–88; PULSE 57–70; RESP 12–30; TEMP 36.1–36.8; O2SAT 93–100
[2021-10-29 06:05] LABS: Hematocrit 40.1 % (37.0-47.0); Hemoglobin 11.5 g/dL (12.0-15.0); Mean Corpuscular HGB Conc 28.7 g/dl (32-36); Mean Corpuscular Volume 87.2 fl (80-100); Mean Platelet Volume 12.4 fl (7.4-10.4); Platelet Count Result 218 k/mm3 (150-375); Red Cell Distribution Width 15.9 % (11.5-14.5); White Blood Count 7.1 K/mm3 (4.5-10.0)
[2021-10-29 06:17] LABS: Anion Gap 2 mmol/L (8-16); Blood Urea Nitrogen 11 mg/dL (7-17); Calcium 8.3 mg/dL (8.4-10.2); Carbon Dioxide 33 mmol/L (22-30); Chloride 98 mmol/L (98-107); Estimated CRCL calculation 62 ml/min; Estimated Glomerular Filt Rate > 60; Glucose 187 mg/dL (65-110); Potassium 3.4 mmol/L (3.4-5.0); Sodium 133 mmol/L (137-145)
--- NOTE | 2021-10-29 09:52 | PM.PNCARD ---
Progress Note: A&P Assessment and Plan (1) Hypertensive heart disease with heart failure and stage 3 chronic kidney disease: Code(s): I13.0 - Hypertensive heart and chronic kidney disease with heart failure and stage 1 through stage 4 chronic kidney disease, or unspecified chronic kidney disease; N18.30 - Chronic kidney disease, stage 3 unspecified Status: Acute Assessment and Plan: She has severe LVH. She has speckled pattern of the myocardium also. While infiltrative cardiomyopathy could be considered, given her marked hypertension at presentation, it is likely secondary to concentric hypertrophy from years of uncontrolled high blood pressure. SBP remains significantly elevated today - 190mmHg this a.m.. per RN before medication administration, not documented yet Continue coreg Continue losartan Continue amlodipine. Do not want a lower blood pressure too much too fast as to not to cause a neurological event. Continue ASA 81mg daily Continue atorvastatin 20mg daily Complaining of shortness of breath today. Will be of 40 mg p.o. Lasix once and observe for response. (2) Tobacco abuse: Code(s): Z72.0 - Tobacco use Status: Acute Assessment and Plan: Ongoing. Tobacco abuse counseling performed. (3) Hypertensive emergency: Code(s): I16.1 - Hypertensive emergency Status: Acute (4) Elevated troponin: Code(s): R77.8 - Other specified abnormalities of plasma proteins Status: Acute Assessment and Plan: These troponins are likely secondary to her marked hypertension at presentation. Unlikely acute plaque rupture. There is plan for outpatient laparoscopic cholecystectomy. Was scheduled for lexiscan yesterday but this was cancelled due to uncontrolled HTN with SBP 240 mmHg. Will postpone plans for Lexiscan until her blood pressure is better controlled - can be done as outpatient if necessary for pre-op eval. Subjective Date/time seen: 10/29/21 09:52 Patient states she is feeling more short of breath today. Remains on 2 L of oxygen per nasal cannula. Her blood pressure remains elevated. Continues to complain of a full feeling in her chest but denies any chest pain, palpitations. Review of Systems Review of Systems: All systems reviewed & are unremarkable except as noted in HPI and below Constitutional: Constitutional: Denies excessive sweating and Denies weakness Eyes: Eyes: Denies blurry vision ENT: Reports Normal hearing present and Denies neck pain Cardiovascular: Cardiovascular: Denies chest pain, Reports leg edema and Reports dyspnea Respiratory: Respiratory: Reports dyspnea Gastrointestinal: Gastrointestinal: Reports abdominal pain Genitourinary: Genitourinary: Denies flank pain Musculoskeletal: Musculoskeletal: Denies neck pain Integumentary/Breasts: Skin/Breast: Reports dry skin and Denies erythema Neurologic: Reports Normal hearing present, Denies Abnormal speech present and Denies weakness Psychiatric: Psychiatric: Denies anxiety Endocrine: Endocrine: Denies excessive sweating Hematologic/Lymphatic: Hematologic/Lymphatic: Denies easy bleeding Allergic/Immunologic: Allergic/Immunologic: Denies GI upset with certain foods Exam Narrative: Awake, alert, and oriented. Const: General: comfortable and no acute distress HENMT: General nose exam: Normal nares present Eyes: Sclera: sclerae normal Neck: Neck: supple and no JVD Resp: Auscultation: crackles Cardio: Rate: regular rate Rhythm: regular rhythm GI: Auscultation: normal bowel sounds Skin: General skin exam: normal color Neuro: Cranial nerves: Yes Normal hearing present Cognition (Neuro): normal cognition Speech: normal speech and No Abnormal speech present Extrem: General: normal to inspection Psych: Mental Status: mental status grossly normal Objective Data Vital Signs Vital Signs: Vital Signs - 24 hr 10/28/21 10:00 10/28/21 10:39
[2021-10-29] MEDS: amLODIPine BESYLATE 5 MG TABLET 10 MG PO (11:48)
[2021-10-29] MEDS: carvediloL 6.25 MG TABLET PO ×2 (11:50→21:19)
[2021-10-29] MEDS: ATORVASTATIN 20 MG TABLET PO (11:50)
[2021-10-29] MEDS: ASPIRIN 81 MG ENTERIC TABLET PO (11:50)
[2021-10-29] MEDS: LOSARTAN POTASSIUM 50 MG TABLET PO (11:51)
[2021-10-29] MEDS: PANTOPRAZOLE SODIUM IV 40 MG VIAL IV PUSH (11:51)
[2021-10-29] MEDS: FUROSEMIDE 40 MG TABLET PO (11:52)
--- NOTE | 2021-10-29 13:34 | P.PNIM_ITS ---
Progress Note: A&P Assessment and Plan (1) Hypertensive emergency: Code(s): I16.1 - Hypertensive emergency Status: Acute Assessment and Plan: BP on presentation was 282/180 * Received IV labetalol and hydralazine * She had not been on any antihypertensive medications prior to admission * Appreciate cardiology consultation * Unable to proceed with stress test yesterday as BP elevated again up to 210/140 * She does complain of chest tightness with elevated troponins. No other signs/symptoms of end-organ damage * Echo reviewed which showed LVH with speckled pattern the myocardium consistent with infiltrative cardiomyopathy, likely secondary to uncontrolled HTN * Caution to avoid lowering blood pressure too much and/or too rapidly * ApneaLink reviewed, not concerning for pathologic breathing disorder * Initiated on aspirin 81 mg daily * Continue to monitor blood pressure trends. BP remains elevated today in the 190s systolic * Continue amlodipine 10 mg, losartan (increased to 50 mg), carvedilol (increased to 6.125 mg BID) (2) Elevated troponin: Code(s): R77.8 - Other specified abnormalities of plasma proteins Status: Acute Assessment and Plan: Most likely secondary to severe hypertension * Acute coronary syndrome felt to be unlikely per Cardiology evaluation * Ischemic workup including Lexiscan stress test ordered 10/28 but unable to be completed due to severe hypertension (3) Nausea & vomiting: Code(s): R11.2 - Nausea with vomiting, unspecified Status: Acute Assessment and Plan: Resolved. * Likely secondary to acute cholecystitis * Lipase normal * At this time she is tolerating her diet * IV fluids discontinued 10/28 * Antiemetics available as needed (4) Acute calculous cholecystitis: Code(s): K80.00 - Calculus of gallbladder with acute cholecystitis without obstruction Status: Acute Assessment and Plan: Presented with epigastric abdominal pain, nausea, and vomiting for 2 days * CT of the abdomen/pelvis showed cholelithiasis in likely associated acute cholecystitis * Planning for outpatient cholecystectomy * Appreciate general surgery consultation. * Continue low fat diet * IV Zosyn. Continue antibiotics to complete 7 days of therapy * She will need to follow up with general surgery as an outpatient (5) Tobacco abuse: Code(s): Z72.0 - Tobacco use Status: Acute Assessment and Plan: Patient has smoked 1/2 pack per day for 40 years * Continue to reinfoce smoking cessation (6) Hypokalemia: Code(s): E87.6 - Hypokalemia Status: Acute Assessment and Plan: Improved. Potassium 3.4 today * Anticipate continued improvement as patient is now tolerating diet * Continue to monitor BMP Subjective Date/time seen: 10/29/21 13:34 Interval history: Date of service: 10/29/2021 Daniela Sanches is a 56-year-old female with history of hypertension and tobacco abuse who is seen in follow-up for hypertensive urgency and cholelithiasis. She complains of tightness in her chest and feels as though she cannot take a deep breath. She has had a and feels that she has some phlegm that she cannot cough. She also endorses a diffuse headache that starts in the back were head and wraps all the way around. She denies associated visual changes. No tinnitus. No nausea, vomiting, fever, or chills. She is tolerating her diet. Denies abdominal pain, right upper quadrant pain. She did have a loose stool today. Denies urinary symptoms. Denies fever,
--- NOTE | 2021-10-29 13:34 | PM.IMPN ---
Progress Note: A&P Assessment and Plan (1) Hypertensive emergency: Code(s): I16.1 - Hypertensive emergency Status: Acute Assessment and Plan: BP on presentation was 282/180 Received IV labetalol and hydralazine She had not been on any antihypertensive medications prior to admission Appreciate cardiology consultation Unable to proceed with stress test yesterday as BP elevated again up to 210/140 She does complain of chest tightness with elevated troponins. No other signs/symptoms of end-organ damage Echo reviewed which showed LVH with speckled pattern the myocardium consistent with infiltrative cardiomyopathy, likely secondary to uncontrolled HTN Caution to avoid lowering blood pressure too much and/or too rapidly ApneaLink reviewed, not concerning for pathologic breathing disorder Initiated on aspirin 81 mg daily Continue to monitor blood pressure trends. BP remains elevated today in the 190s systolic Continue amlodipine 10 mg, losartan (increased to 50 mg), carvedilol (increased to 6.125 mg BID) (2) Elevated troponin: Code(s): R77.8 - Other specified abnormalities of plasma proteins Status: Acute Assessment and Plan: Most likely secondary to severe hypertension Acute coronary syndrome felt to be unlikely per Cardiology evaluation Ischemic workup including Lexiscan stress test ordered 10/28 but unable to be completed due to severe hypertension (3) Nausea & vomiting: Code(s): R11.2 - Nausea with vomiting, unspecified Status: Acute Assessment and Plan: Resolved. Likely secondary to acute cholecystitis Lipase normal At this time she is tolerating her diet IV fluids discontinued 10/28 Antiemetics available as needed (4) Acute calculous cholecystitis: Code(s): K80.00 - Calculus of gallbladder with acute cholecystitis without obstruction Status: Acute Assessment and Plan: Presented with epigastric abdominal pain, nausea, and vomiting for [address] of the abdomen/pelvis showed cholelithiasis in likely associated acute cholecystitis Planning for outpatient cholecystectomy Appreciate general surgery consultation. Continue low fat diet IV Zosyn. Continue antibiotics to complete 7 days of therapy She will need to follow up with general surgery as an outpatient (5) Tobacco abuse: Code(s): Z72.0 - Tobacco use Status: Acute Assessment and Plan: Patient has smoked 1/2 pack per day for 40 years Continue to reinfoce smoking cessation (6) Hypokalemia: Code(s): E87.6 - Hypokalemia Status: Acute Assessment and Plan: Improved. Potassium 3.4 today Anticipate continued improvement as patient is now tolerating diet Continue to monitor BMP Subjective Date/time seen: 10/29/21 13:34 Interval history: Date of service: 10/29/2021 Daniela Sanches is a 56-year-old female with history of hypertension and tobacco abuse who is seen in follow-up for hypertensive urgency and cholelithiasis. She complains of tightness in her chest and feels as though she cannot take a deep breath. She has had a and feels that she has some phlegm that she cannot cough. She also endorses a diffuse headache that starts in the back were head and wraps all the way around. She denies associated visual changes. No tinnitus. No nausea, vomiting, fever, or chills. She is tolerating her diet. Denies abdominal pain, right upper quadrant pain. She did have a loose stool today. Denies urinary symptoms. Denies fever, chills. No dizziness, lightheadedness, weakness. No palpitations. Review of Systems Review of Systems: All systems reviewed & are unremarkable except as noted in HPI and below Exam Narrative: General: Well-nourished, well-appearing 56 year-old female, sitting up in bed, comfortable, NARD Neuro: awake, alert and oriented x4, speech clear, no focal neuro deficits noted HEENMT: normocephalic, atraumati
[2021-10-29] MEDS: hydrALAZINE HCL 20 MG/ML VIAL 10 MG IV PUSH (21:23)
[2021-10-30] VITALS (14 sets, daily range): BP systolic 145–210; BP diastolic 57–74; PULSE 61–82; RESP 17–23; TEMP 36.3–36.7; O2SAT 94–100
[2021-10-30 05:46] LABS: Hematocrit 40.8 % (37.0-47.0); Hemoglobin 12.1 g/dL (12.0-15.0); Mean Corpuscular HGB Conc 29.7 g/dl (32-36); Mean Corpuscular Hemoglobin 24.9 pg (26-34); Mean Platelet Volume 12.2 fl (7.4-10.4); Platelet Count Result 241 k/mm3 (150-375); Red Blood Count 4.86 M/mm3 (4.2-5.4); Red Cell Distribution Width 15.8 % (11.5-14.5); White Blood Count 7.1 K/mm3 (4.5-10.0)
[2021-10-30 06:10] LABS: Anion Gap 2 mmol/L (8-16); Blood Urea Nitrogen 9 mg/dL (7-17); Calcium 8.1 mg/dL (8.4-10.2); Carbon Dioxide 37 mmol/L (22-30); Chloride 98 mmol/L (98-107); Estimated CRCL calculation 69 ml/min; Estimated Glomerular Filt Rate > 60; Glucose 142 mg/dL (65-110); Potassium 3.3 mmol/L (3.4-5.0); Sodium 137 mmol/L (137-145)
[2021-10-30] MEDS: hydrALAZINE HCL 20 MG/ML VIAL 10 MG IV PUSH (07:47)
[2021-10-30] MEDS: POTASSIUM CHLORIDE 20 MEQ TABLET PO (09:06)
[2021-10-30] MEDS: amLODIPine BESYLATE 5 MG TABLET 10 MG PO (09:06)
[2021-10-30] MEDS: PANTOPRAZOLE SODIUM IV 40 MG VIAL IV PUSH (09:07)
[2021-10-30] MEDS: ATORVASTATIN 20 MG TABLET PO (09:07)
[2021-10-30] MEDS: LOSARTAN POTASSIUM 50 MG TABLET PO (09:07)
[2021-10-30] MEDS: ASPIRIN 81 MG ENTERIC TABLET PO (09:07)
[2021-10-30] MEDS: carvediloL 6.25 MG TABLET PO ×2 (09:09→20:38)
--- NOTE | 2021-10-30 13:32 | P.PNIM_ITS ---
Progress Note: A&P Assessment and Plan (1) Hypertensive emergency: Code(s): I16.1 - Hypertensive emergency Status: Acute Assessment and Plan: BP on presentation was 282/180 * Received IV labetalol and hydralazine * She had not been on any antihypertensive medications prior to admission * Unable to proceed with stress test yesterday as BP elevated again up to 210/140 * She does complain of chest tightness with elevated troponins. No other signs/symptoms of end-organ damage * Echo reviewed which showed LVH with speckled pattern the myocardium consistent with infiltrative cardiomyopathy, likely secondary to uncontrolled HTN * Caution to avoid lowering blood pressure too much and/or too rapidly * ApneaLink reviewed, not concerning for pathologic breathing disorder * Initiated on aspirin 81 mg daily * Continue to monitor blood pressure trends. BP remains elevated today in the 120s systolic * Continue amlodipine 10 mg, losartan (increased to 50 mg), carvedilol (increased to 6.125 mg BID) * Further medication adjustments per cardiology, appreciate the consultation (2) Elevated troponin: Code(s): R77.8 - Other specified abnormalities of plasma proteins Status: Acute Assessment and Plan: Most likely secondary to severe hypertension * Acute coronary syndrome felt to be unlikely per Cardiology evaluation * Ischemic workup including Lexiscan stress test ordered 10/28 but unable to be completed due to severe hypertension (3) Nausea & vomiting: Code(s): R11.2 - Nausea with vomiting, unspecified Status: Acute Assessment and Plan: Resolved. * Likely secondary to acute cholecystitis * Lipase normal * At this time she is tolerating her diet * IV fluids discontinued 10/28 * Antiemetics available as needed (4) Acute calculous cholecystitis: Code(s): K80.00 - Calculus of gallbladder with acute cholecystitis without obstruction Status: Acute Assessment and Plan: Presented with epigastric abdominal pain, nausea, and vomiting for 2 days * CT of the abdomen/pelvis showed cholelithiasis likely associated acute cholecystitis * Planning for outpatient cholecystectomy * Continue low fat diet * IV Zosyn. Continue antibiotics to complete 7 days of therapy per general surgery, appreciate their consultation * She will need to follow up with general surgery as an outpatient (5) Tobacco abuse: Code(s): Z72.0 - Tobacco use Status: Acute Assessment and Plan: Patient has smoked 1/2 pack per day for 40 years * Continue to reinfoce smoking cessation (6) Hypokalemia: Code(s): E87.6 - Hypokalemia Status: Acute Assessment and Plan: Improved. Potassium 3.4 today * Anticipate continued improvement as patient is now tolerating diet * Continue to monitor BMP (7) Hypoxia: Code(s): R09.02 - Hypoxemia Status: Acute Assessment and Plan: -has been requiring 2L NC for several days -she is a current smoker but does not use home oxygen -covid test on arrival negative, will repeat -cxr on arrival w/ cardiomegaly and hyperinflation -will also check CTA to r/o PE Subjective Date/time seen: 10/30/21 13:32 Interval history: Daniela Sanches is a 56-year-old female with history of hypertension and tobacco abuse who is seen in follow-up for hypertensive urgency and cholelithiasis. Pt states she does not feel good today. Sh
--- NOTE | 2021-10-30 13:32 | PM.IMPN ---
Progress Note: A&P Assessment and Plan (1) Hypertensive emergency: Code(s): I16.1 - Hypertensive emergency Status: Acute Assessment and Plan: BP on presentation was 282/180 Received IV labetalol and hydralazine She had not been on any antihypertensive medications prior to admission Unable to proceed with stress test yesterday as BP elevated again up to 210/140 She does complain of chest tightness with elevated troponins. No other signs/symptoms of end-organ damage Echo reviewed which showed LVH with speckled pattern the myocardium consistent with infiltrative cardiomyopathy, likely secondary to uncontrolled HTN Caution to avoid lowering blood pressure too much and/or too rapidly ApneaLink reviewed, not concerning for pathologic breathing disorder Initiated on aspirin 81 mg daily Continue to monitor blood pressure trends. BP remains elevated today in the 120s systolic Continue amlodipine 10 mg, losartan (increased to 50 mg), carvedilol (increased to 6.125 mg BID) Further medication adjustments per cardiology, appreciate the consultation (2) Elevated troponin: Code(s): R77.8 - Other specified abnormalities of plasma proteins Status: Acute Assessment and Plan: Most likely secondary to severe hypertension Acute coronary syndrome felt to be unlikely per Cardiology evaluation Ischemic workup including Lexiscan stress test ordered 10/28 but unable to be completed due to severe hypertension (3) Nausea & vomiting: Code(s): R11.2 - Nausea with vomiting, unspecified Status: Acute Assessment and Plan: Resolved. Likely secondary to acute cholecystitis Lipase normal At this time she is tolerating her diet IV fluids discontinued 10/28 Antiemetics available as needed (4) Acute calculous cholecystitis: Code(s): K80.00 - Calculus of gallbladder with acute cholecystitis without obstruction Status: Acute Assessment and Plan: Presented with epigastric abdominal pain, nausea, and vomiting for [address] of the abdomen/pelvis showed cholelithiasis likely associated acute cholecystitis Planning for outpatient cholecystectomy Continue low fat diet IV Zosyn. Continue antibiotics to complete 7 days of therapy per general surgery, appreciate their consultation She will need to follow up with general surgery as an outpatient (5) Tobacco abuse: Code(s): Z72.0 - Tobacco use Status: Acute Assessment and Plan: Patient has smoked 1/2 pack per day for 40 years Continue to reinfoce smoking cessation (6) Hypokalemia: Code(s): E87.6 - Hypokalemia Status: Acute Assessment and Plan: Improved. Potassium 3.4 today Anticipate continued improvement as patient is now tolerating diet Continue to monitor BMP (7) Hypoxia: Code(s): R09.02 - Hypoxemia Status: Acute Assessment and Plan: -has been requiring 2L NC for several days -she is a current smoker but does not use home oxygen -covid test on arrival negative, will repeat -cxr on arrival w/ cardiomegaly and hyperinflation -will also check CTA to r/o PE Subjective Date/time seen: 10/30/21 13:32 Interval history: Daniela Sanches is a 56-year-old female with history of hypertension and tobacco abuse who is seen in follow-up for hypertensive urgency and cholelithiasis. Pt states she does not feel good today. She feels weak and sob. No cp. Also having diarrhea x 2 days. Denies abdominal pain, N/V. She is currently requiring 2L NC and does not normally wear home oxygen. Review of Systems Review of Systems: All systems reviewed & are unremarkable except as noted in HPI and below Exam Narrative: General: NAD, mildly ill appearing Neuro: awake, alert and oriented x4, speech clear, no focal neuro deficits noted HEENMT: normocephalic, atraumatic, sclerae anicteric, moist oral mucosa Respirato
[2021-10-30 18:59] LABS: SARS-CoV-2 RNA PCR Negative
[2021-10-31] VITALS (15 sets, daily range): BP systolic 128–210; BP diastolic 65–102; PULSE 58–75; RESP 18–23; TEMP 36.1–36.7; O2SAT 96–100
[2021-10-31] MEDS: hydrALAZINE HCL 20 MG/ML VIAL 10 MG IV PUSH (04:45)
[2021-10-31 05:28] LABS: Basophils Absolute Auto 0.1 K/mm3 (0.0-0.1); Basophils Percent Auto 0.8 % (0.2-1.2); Eosinophils Absolute Auto 0.2 K/mm3 (0-0.3); Eosinophils Percent Auto 1.8 % (0-4.4); Hematocrit 43.8 % (37.0-47.0); Hemoglobin 12.5 g/dL (12.0-15.0); Immature Granulocyte Absolute 0.02 K/mm3 (0.00-0.031); Immature Granulocyte Percent A 0.2 % (0-0.5); Lymphocytes Absolute Auto 1.07 K/mm3 (0.9-3.2); Lymphocytes Percent Auto 11.9 % (18.3-44.2); Mean Corpuscular HGB Conc 28.5 g/dl (32-36); Mean Corpuscular Hemoglobin 24.8 pg (26-34); Mean Corpuscular Volume 86.7 fl (80-100); Mean Platelet Volume 11.6 fl (7.4-10.4); Monocytes Absolute Auto 1.2 K/mm3 (0.1-0.6); Neutrophils Absolute Auto 6.5 K/mm3 (1.3-6.7); Neutrophils Percent Auto 72.3 % (45.5-73.1); Platelet Count Result 242 k/mm3 (150-375); Red Blood Count 5.05 M/mm3 (4.2-5.4); Red Cell Distribution Width 15.9 % (11.5-14.5)
[2021-10-31 05:43] LABS: Alanine Aminotransferase 15 U/L (4-35); Albumin Level 3.3 g/dL (3.5-5.1); Alkaline Phosphatase 83 U/L (38-126); Anion Gap 4 mmol/L (8-16); Aspartate Amino Transferase 31 U/L (14-36); Bilirubin,Total 0.6 mg/dL (0.2-1.3); Blood Urea Nitrogen 10 mg/dL (7-17); Calcium 8.3 mg/dL (8.4-10.2); Carbon Dioxide 33 mmol/L (22-30); Chloride 99 mmol/L (98-107); Estimated CRCL calculation 62 ml/min; Estimated Glomerular Filt Rate > 60; Glucose 139 mg/dL (65-110); Lipase 197 U/L (23-300); Potassium 3.4 mmol/L (3.4-5.0); Sodium 136 mmol/L (137-145)
[2021-10-31] MEDS: ASPIRIN 81 MG ENTERIC TABLET PO (08:19)
[2021-10-31] MEDS: carvediloL 6.25 MG TABLET PO (08:19)
[2021-10-31] MEDS: ATORVASTATIN 20 MG TABLET PO (08:20)
[2021-10-31] MEDS: LOSARTAN POTASSIUM 50 MG TABLET PO (08:20)
[2021-10-31] MEDS: PANTOPRAZOLE SODIUM IV 40 MG VIAL IV PUSH (08:20)
[2021-10-31] MEDS: amLODIPine BESYLATE 5 MG TABLET 10 MG PO (08:20)
[2021-10-31] MEDS: ACETAMINOPHEN 325 MG TABLET 650 MG PO ×2 (08:23→20:21)
--- NOTE | 2021-10-31 09:50 | P.PNIM_ITS ---
Progress Note: A&P Assessment and Plan (1) Hypertensive emergency: Code(s): I16.1 - Hypertensive emergency Status: Acute Assessment and Plan: BP on presentation was 282/180 * Received IV labetalol and hydralazine * She had not been on any antihypertensive medications prior to admission * Unable to proceed with stress test as BP elevated still at 210/140 * She does complain of chest tightness with elevated troponins. No other signs/symptoms of end-organ damage * Echo reviewed which showed LVH with speckled pattern the myocardium consistent with infiltrative cardiomyopathy, likely secondary to uncontrolled HTN * Caution to avoid lowering blood pressure too much and/or too rapidly * ApneaLink reviewed, not concerning for pathologic breathing disorder * Initiated on aspirin 81 mg daily * Continue to monitor blood pressure trends. BP remains elevated today in the 210s systolic * Continue amlodipine 10 mg, losartan (increased to 50 mg), carvedilol (increased to 6.125 mg BID) * Also added clonidine 10/31 * Check renal US to r/o renal artery stenosis * Check urine metannephrines * Further medication adjustments per cardiology, appreciate the consultation * CXR w/ pulmonary edema, will diurese with IV lasix with close monitoring, could also help improve her BP (2) Elevated troponin: Code(s): R77.8 - Other specified abnormalities of plasma proteins Status: Acute Assessment and Plan: Most likely secondary to severe hypertension * Acute coronary syndrome felt to be unlikely per Cardiology evaluation * Ischemic workup including Lexiscan stress test ordered 10/28 but unable to be completed due to severe hypertension (3) Nausea & vomiting: Code(s): R11.2 - Nausea with vomiting, unspecified Status: Acute Assessment and Plan: Resolved. * Likely secondary to acute cholecystitis * Lipase normal * At this time she is tolerating her diet * IV fluids discontinued 10/28 * Antiemetics available as needed (4) Acute calculous cholecystitis: Code(s): K80.00 - Calculus of gallbladder with acute cholecystitis without obstruction Status: Acute Assessment and Plan: Presented with epigastric abdominal pain, nausea, and vomiting for 2 days * CT of the abdomen/pelvis showed cholelithiasis likely associated acute cholecystitis * Planning for outpatient cholecystectomy * Continue low fat diet * IV Zosyn. Continue antibiotics to complete 7 days of therapy per general surgery, appreciate their consultation * She will need to follow up with general surgery as an outpatient (5) Tobacco abuse: Code(s): Z72.0 - Tobacco use Status: Acute Assessment and Plan: Patient has smoked 1/2 pack per day for 40 years * Continue to reinfoce smoking cessation (6) Hypokalemia: Code(s): E87.6 - Hypokalemia Status: Acute Assessment and Plan: Improved. Potassium 3.4 today * Anticipate continued improvement as patient is now tolerating diet * Continue to monitor BMP (7) Hypoxia: Code(s): R09.02 - Hypoxemia Status: Acute Assessment and Plan: -has been requiring 2L NC for several days -she is a current smoker but does not use home oxygen -covid test on arrival negative, repeat test also negative -cxr on arrival w/ cardiomegaly and hyperinflation -CTA negative for PE, did show pulmonary edema -started IV lasix 40 mg daily Subjective
--- NOTE | 2021-10-31 09:50 | PM.IMPN ---
Progress Note: A&P Assessment and Plan (1) Hypertensive emergency: Code(s): I16.1 - Hypertensive emergency Status: Acute Assessment and Plan: BP on presentation was 282/180 Received IV labetalol and hydralazine She had not been on any antihypertensive medications prior to admission Unable to proceed with stress test as BP elevated still at 210/140 She does complain of chest tightness with elevated troponins. No other signs/symptoms of end-organ damage Echo reviewed which showed LVH with speckled pattern the myocardium consistent with infiltrative cardiomyopathy, likely secondary to uncontrolled HTN Caution to avoid lowering blood pressure too much and/or too rapidly ApneaLink reviewed, not concerning for pathologic breathing disorder Initiated on aspirin 81 mg daily Continue to monitor blood pressure trends. BP remains elevated today in the 210s systolic Continue amlodipine 10 mg, losartan (increased to 50 mg), carvedilol (increased to 6.125 mg BID) Also added clonidine 10/31 Check renal US to r/o renal artery stenosis Check urine metannephrines Further medication adjustments per cardiology, appreciate the consultation CXR w/ pulmonary edema, will diurese with IV lasix with close monitoring, could also help improve her BP (2) Elevated troponin: Code(s): R77.8 - Other specified abnormalities of plasma proteins Status: Acute Assessment and Plan: Most likely secondary to severe hypertension Acute coronary syndrome felt to be unlikely per Cardiology evaluation Ischemic workup including Lexiscan stress test ordered 10/28 but unable to be completed due to severe hypertension (3) Nausea & vomiting: Code(s): R11.2 - Nausea with vomiting, unspecified Status: Acute Assessment and Plan: Resolved. Likely secondary to acute cholecystitis Lipase normal At this time she is tolerating her diet IV fluids discontinued 10/28 Antiemetics available as needed (4) Acute calculous cholecystitis: Code(s): K80.00 - Calculus of gallbladder with acute cholecystitis without obstruction Status: Acute Assessment and Plan: Presented with epigastric abdominal pain, nausea, and vomiting for [address] of the abdomen/pelvis showed cholelithiasis likely associated acute cholecystitis Planning for outpatient cholecystectomy Continue low fat diet IV Zosyn. Continue antibiotics to complete 7 days of therapy per general surgery, appreciate their consultation She will need to follow up with general surgery as an outpatient (5) Tobacco abuse: Code(s): Z72.0 - Tobacco use Status: Acute Assessment and Plan: Patient has smoked 1/2 pack per day for 40 years Continue to reinfoce smoking cessation (6) Hypokalemia: Code(s): E87.6 - Hypokalemia Status: Acute Assessment and Plan: Improved. Potassium 3.4 today Anticipate continued improvement as patient is now tolerating diet Continue to monitor BMP (7) Hypoxia: Code(s): R09.02 - Hypoxemia Status: Acute Assessment and Plan: -has been requiring 2L NC for several days -she is a current smoker but does not use home oxygen -covid test on arrival negative, repeat test also negative -cxr on arrival w/ cardiomegaly and hyperinflation -CTA negative for PE, did show pulmonary edema -started IV lasix 40 mg daily Subjective Date/time seen: 10/31/21 09:50 Interval history: Daniela Sanches is a 56-year-old female with history of hypertension and tobacco abuse who is seen in follow-up for hypertensive urgency and cholelithiasis. Pt states she does not feel good today. She feels weak and sob. Also has some chest tightness. Also having diarrhea approximately 2 episodes per day. Denies abdominal pain, N/V. She is currently requiring 2L NC and does not normally wear home oxygen. Review of Systems Review of
--- NOTE | 2021-10-31 10:14 | PM.PNCARD ---
Progress Note: A&P Assessment and Plan (1) Hypertensive heart disease with heart failure and stage 3 chronic kidney disease: Code(s): I13.0 - Hypertensive heart and chronic kidney disease with heart failure and stage 1 through stage 4 chronic kidney disease, or unspecified chronic kidney disease; N18.30 - Chronic kidney disease, stage 3 unspecified <RITA Whitehead - Last Filed: 10/31/21 12:21> Status: Acute <RITA Whitehead - Last Filed: 10/31/21 12:21> Assessment and Plan: She has severe LVH. She has speckled pattern of the myocardium also. While infiltrative cardiomyopathy could be considered, given her marked hypertension at presentation, it is likely secondary to concentric hypertrophy from years of uncontrolled high blood pressure. SBP remains significantly elevated today Decrease coreg to 3.125mg b.i.d. Continue losartan Continue amlodipine. Add clonidine 0.1mg t.i.d. Urine metanephrines have been ordered to rule out pheochromocytoma Renal u/s ordered to check for renal artery stenosis Do not want a lower blood pressure too much too fast as to not to cause a neurological event. Continue ASA 81mg daily Continue atorvastatin 20mg daily <RITA Whitehead - Last Filed: 10/31/21 12:21> (2) Tobacco abuse: Code(s): Z72.0 - Tobacco use <RITA Whitehead - Last Filed: 10/31/21 12:21> Status: Acute <RITA Whitehead - Last Filed: 10/31/21 12:21> Assessment and Plan: Ongoing. Tobacco abuse counseling performed. <RITA Whitehead - Last Filed: 10/31/21 12:21> (3) Hypertensive emergency: Code(s): I16.1 - Hypertensive emergency <RITA Whitehead - Last Filed: 10/31/21 12:21> Status: Acute <RITA Whitehead - Last Filed: 10/31/21 12:21> Assessment and Plan: See above. <RITA Whitehead - Last Filed: 10/31/21 12:21> (4) Elevated troponin: Code(s): R77.8 - Other specified abnormalities of plasma proteins <Adal Farmer RITA Lang - Last Filed: 10/31/21 12:21> Status: Acute <Adal LangRITA - Last Filed: 10/31/21 12:21> Assessment and Plan: These troponins are likely secondary to her marked hypertension at presentation. Unlikely acute plaque rupture. There is plan for outpatient laparoscopic cholecystectomy. Was scheduled for lexiscan earlier this week but this was cancelled due to uncontrolled HTN with SBP 240 mmHg. Will postpone plans for Lexiscan until her blood pressure is better controlled - can be done as outpatient if necessary for pre-op eval. <RITA Whitehead - Last Filed: 10/31/21 12:21> Additional Plan I have seen and examined this patient in collaboration with my nurse practitioner adal lang. This is a patient who has cholecystitis and was found to have very elevated blood pressures. On examination I personally found: Generally: Alert and oriented x3. No acute distress : HEENT normocephalic, atraumatic, no jaundice : Cardiovascular: Normal S1, S2. Murmur consistent with aortic stenosis Respiratory: Scattered crackles. Symmetric lung expansion Gastrointestinal: No distention or tenderness. Musculoskeletal: Bilateral lower extremity edema, no joint swelling. Skin: No rash. Neurology: Alert oriented x3. No focal deficit Psychiatric: Normal mood and affect. Allergy immunology: No urticaria. At this time my assessment plan is that this patient presents with cholecystitis. She is now pain free. She is tolerating diet. Her blood pressure is elevated 250/100. She receives 3 blood pressure medications her blood pressures are very elevated. She had a long history of hypertension and evidence of LVH on echocardiogram. At this time I recommend that we obtain plasma metanephrines, renal Doppler ultrasound to rule out renal artery stenosis. We will add clonidine 0.1 mg t.i.d. to achieve better blood pressu
[2021-10-31] MEDS: cloNIDine HCL 0.1 MG TABLET PO ×2 (15:15→18:23)
[2021-10-31] MEDS: FUROSEMIDE INJ 40 MG/4 ML VIAL IV PUSH (15:15)
[2021-10-31] MEDS: carvediloL 3.125 MG TABLET PO (20:19)
--- NOTE | 2021-10-31 21:20 | PC.NURSE ---
Pt had loose stool, contaminating urine specimen. Notified hospitalist. New order for ly catheter. 24 hour urine restarted at 2034.
[2021-11-01] VITALS (14 sets, daily range): BP systolic 111–176; BP diastolic 61–81; PULSE 60–67; RESP 20–22; TEMP 35.8–36.5; O2SAT 96–100
[2021-11-01 05:48] LABS: Basophils Absolute Auto 0.1 K/mm3 (0.0-0.1); Basophils Percent Auto 1.1 % (0.2-1.2); Eosinophils Absolute Auto 0.2 K/mm3 (0-0.3); Eosinophils Percent Auto 3.2 % (0-4.4); Hemoglobin 12.3 g/dL (12.0-15.0); Immature Granulocyte Absolute 0.02 K/mm3 (0.00-0.031); Immature Granulocyte Percent A 0.3 % (0-0.5); Lymphocytes Absolute Auto 1.28 K/mm3 (0.9-3.2); Lymphocytes Percent Auto 20.3 % (18.3-44.2); Mean Corpuscular HGB Conc 28.6 g/dl (32-36); Mean Corpuscular Hemoglobin 24.6 pg (26-34); Mean Corpuscular Volume 85.8 fl (80-100); Mean Platelet Volume 12.4 fl (7.4-10.4); Monocytes Absolute Auto 0.9 K/mm3 (0.1-0.6); Monocytes Percent Auto 14.7 % (2.6-8.5); Neutrophils Absolute Auto 3.8 K/mm3 (1.3-6.7); Neutrophils Percent Auto 60.4 % (45.5-73.1); Platelet Count Result 227 k/mm3 (150-375); Red Blood Count 5.01 M/mm3 (4.2-5.4); Red Cell Distribution Width 15.9 % (11.5-14.5); White Blood Count 6.3 K/mm3 (4.5-10.0)
[2021-11-01 06:39] LABS: Alanine Aminotransferase 14 U/L (4-35); Alkaline Phosphatase 70 U/L (38-126); Anion Gap 7 mmol/L (8-16); Aspartate Amino Transferase 23 U/L (14-36); Bilirubin,Total 0.5 mg/dL (0.2-1.3); Blood Urea Nitrogen 11 mg/dL (7-17); Calcium 8.4 mg/dL (8.4-10.2); Carbon Dioxide 32 mmol/L (22-30); Chloride 97 mmol/L (98-107); Estimated CRCL calculation 61 ml/min; Estimated Glomerular Filt Rate > 60; Glucose 141 mg/dL (65-110); Potassium 3.4 mmol/L (3.4-5.0); Sodium 136 mmol/L (137-145)
--- NOTE | 2021-11-01 08:12 | PM.PNCARD ---
Progress Note: A&P Assessment and Plan (1) Hypertensive heart disease with heart failure and stage 3 chronic kidney disease: Code(s): I13.0 - Hypertensive heart and chronic kidney disease with heart failure and stage 1 through stage 4 chronic kidney disease, or unspecified chronic kidney disease; N18.30 - Chronic kidney disease, stage 3 unspecified Status: Acute Assessment and Plan: She has severe LVH. She has speckled pattern of the myocardium also. While infiltrative cardiomyopathy could be considered, given her marked hypertension at presentation, it is likely secondary to concentric hypertrophy from years of uncontrolled high blood pressure. SBP improved today Decrease coreg to 3.125mg b.i.d. Continue losartan Continue amlodipine. Add clonidine 0.1mg t.i.d. Urine metanephrines have been ordered to rule out pheochromocytoma Renal u/s negative Do not want a lower blood pressure too much too fast as to not to cause a neurological event. Continue ASA 81mg daily Continue atorvastatin 20mg daily (2) Tobacco abuse: Code(s): Z72.0 - Tobacco use Status: Acute Assessment and Plan: Ongoing. Tobacco abuse counseling performed. (3) Hypertensive emergency: Code(s): I16.1 - Hypertensive emergency Status: Acute Assessment and Plan: See above. (4) Elevated troponin: Code(s): R77.8 - Other specified abnormalities of plasma proteins Status: Acute Assessment and Plan: These troponins are likely secondary to her marked hypertension at presentation. Unlikely acute plaque rupture. There is plan for outpatient laparoscopic cholecystectomy. Was scheduled for lexiscan earlier this week but this was cancelled due to uncontrolled HTN with SBP 240 mmHg. Will postpone plans for Lexiscan until her blood pressure is better controlled - can be done as outpatient if necessary for pre-op eval. Subjective Date/time seen: 11/01/21 08:12 cardiology follow-up for hypertension Patient is still not feeling very well this morning. She is complaining of congestion and shortness of breath. She does say that her breathing is a little bit easier than yesterday. Denies any chest pain. Blood pressure is better today. Review of Systems Review of Systems: All systems reviewed & are unremarkable except as noted in HPI and below Constitutional: Constitutional: Denies excessive sweating and Denies weakness Eyes: Eyes: Denies blurry vision ENT: Reports Normal hearing present and Denies neck pain Cardiovascular: Cardiovascular: Denies chest pain, Reports leg edema and Reports dyspnea Respiratory: Respiratory: Reports dyspnea Gastrointestinal: Gastrointestinal: Reports abdominal pain Genitourinary: Genitourinary: Denies flank pain Musculoskeletal: Musculoskeletal: Denies neck pain Integumentary/Breasts: Skin/Breast: Reports dry skin and Denies erythema Neurologic: Reports Normal hearing present, Denies Abnormal speech present and Denies weakness Psychiatric: Psychiatric: Denies anxiety Endocrine: Endocrine: Denies excessive sweating Hematologic/Lymphatic: Hematologic/Lymphatic: Denies easy bleeding Allergic/Immunologic: Allergic/Immunologic: Denies GI upset with certain foods Exam Narrative: Awake, alert, and oriented. Const: General: comfortable and no acute distress HENMT: General nose exam: Normal nares present Eyes: Sclera: sclerae normal Neck: Neck: supple and no JVD Chest: Other: No reproducible chest wall pain to palpation Resp: Auscultation: clear to auscultation bilaterally and diminished lung sounds Cardio: Rate: regular rate Rhythm: regular rhythm GI: Auscultation: normal bowel sounds Skin: General skin exam: normal color Neuro: Cranial nerves: Yes Normal hearing present Cognition (Neuro): normal cognition Speech: normal speech and No Abnormal speech present Extrem: General: normal to inspection Psych: Mental Status: me
[2021-11-01] MEDS: ASPIRIN 81 MG ENTERIC TABLET PO (08:36)
[2021-11-01] MEDS: LOSARTAN POTASSIUM 50 MG TABLET PO (08:36)
[2021-11-01] MEDS: amLODIPine BESYLATE 5 MG TABLET 10 MG PO (08:36)
[2021-11-01] MEDS: PANTOPRAZOLE SODIUM IV 40 MG VIAL IV PUSH (08:36)
[2021-11-01] MEDS: carvediloL 3.125 MG TABLET PO ×2 (08:36→19:40)
[2021-11-01] MEDS: ATORVASTATIN 20 MG TABLET PO (08:36)
[2021-11-01] MEDS: FUROSEMIDE INJ 40 MG/4 ML VIAL IV PUSH (08:39)
[2021-11-01] MEDS: cloNIDine HCL 0.1 MG TABLET PO ×3 (08:39→17:51)
[2021-11-01 11:44] LABS: Influenza Control Positive
[2021-11-01] MEDS: ACETAMINOPHEN 325 MG TABLET 650 MG PO ×2 (11:52→19:40)
--- NOTE | 2021-11-01 13:19 | P.PNIM_ITS ---
Progress Note: A&P Assessment and Plan (1) Hypertensive emergency: Code(s): I16.1 - Hypertensive emergency Status: Acute Assessment and Plan: BP on presentation was 282/180 * Received IV labetalol and hydralazine * She had not been on any antihypertensive medications prior to admission * Unable to proceed with stress test as BP elevated still at 210/140 * She does complain of chest tightness with elevated troponins. No other signs/symptoms of end-organ damage * Echo reviewed which showed LVH with speckled pattern the myocardium consistent with infiltrative cardiomyopathy, likely secondary to uncontrolled HTN * Caution to avoid lowering blood pressure too much and/or too rapidly * ApneaLink reviewed, not concerning for pathologic breathing disorder * Initiated on aspirin 81 mg daily * Continue amlodipine 10 mg, losartan (increased to 50 mg), carvedilol (increased to 6.125 mg BID) * Also added clonidine 10/31 * renal US negative for renal artery stenosis * Check urine metannephrines * Further medication adjustments per cardiology, appreciate the consultation * CXR w/ pulmonary edema, will diurese with IV lasix with close monitoring, could also help improve her BP * improving today 137/67 (2) Elevated troponin: Code(s): R77.8 - Other specified abnormalities of plasma proteins Status: Acute Assessment and Plan: Most likely secondary to severe hypertension * Acute coronary syndrome felt to be unlikely per Cardiology evaluation * Ischemic workup including Lexiscan stress test ordered 10/28 but unable to be completed due to severe hypertension (3) Nausea & vomiting: Code(s): R11.2 - Nausea with vomiting, unspecified Status: Acute Assessment and Plan: Resolved. * Likely secondary to acute cholecystitis * Lipase normal * At this time she is tolerating her diet * IV fluids discontinued 10/28 (4) Acute calculous cholecystitis: Code(s): K80.00 - Calculus of gallbladder with acute cholecystitis without obstruction Status: Acute Assessment and Plan: Presented with epigastric abdominal pain, nausea, and vomiting for 2 days * CT of the abdomen/pelvis showed cholelithiasis likely associated acute cholecystitis * Planning for outpatient cholecystectomy * Continue low fat diet * IV Zosyn. Continue antibiotics to complete 7 days of therapy per general surgery, appreciate their consultation * She will need to follow up with general surgery as an outpatient (5) Tobacco abuse: Code(s): Z72.0 - Tobacco use Status: Acute Assessment and Plan: Patient has smoked 1/2 pack per day for 40 years * Continue to reinfoce smoking cessation (6) Hypokalemia: Code(s): E87.6 - Hypokalemia Status: Acute Assessment and Plan: Improved. Potassium 3.4 today * Anticipate continued improvement as patient is now tolerating diet * Continue to monitor BMP (7) Hypoxia: Code(s): R09.02 - Hypoxemia Status: Acute Assessment and Plan: -has been requiring 2L NC for several days -she is a current smoker but does not use home oxygen -covid test on arrival negative, repeat test also negative -influenza negative -cxr on arrival w/ cardiomegaly and hyperinflation -CTA negative for PE, did show pulmonary edema -started IV lasix 40 mg daily -continue to wean oxygen as tolerated -repeat CXR tomorrow Subjective Date/ti
--- NOTE | 2021-11-01 13:19 | PM.IMPN ---
Progress Note: A&P Assessment and Plan (1) Hypertensive emergency: Code(s): I16.1 - Hypertensive emergency Status: Acute Assessment and Plan: BP on presentation was 282/180 Received IV labetalol and hydralazine She had not been on any antihypertensive medications prior to admission Unable to proceed with stress test as BP elevated still at 210/140 She does complain of chest tightness with elevated troponins. No other signs/symptoms of end-organ damage Echo reviewed which showed LVH with speckled pattern the myocardium consistent with infiltrative cardiomyopathy, likely secondary to uncontrolled HTN Caution to avoid lowering blood pressure too much and/or too rapidly ApneaLink reviewed, not concerning for pathologic breathing disorder Initiated on aspirin 81 mg daily Continue amlodipine 10 mg, losartan (increased to 50 mg), carvedilol (increased to 6.125 mg BID) Also added clonidine 10/31 renal US negative for renal artery stenosis Check urine metannephrines Further medication adjustments per cardiology, appreciate the consultation CXR w/ pulmonary edema, will diurese with IV lasix with close monitoring, could also help improve her BP improving today 137/67 (2) Elevated troponin: Code(s): R77.8 - Other specified abnormalities of plasma proteins Status: Acute Assessment and Plan: Most likely secondary to severe hypertension Acute coronary syndrome felt to be unlikely per Cardiology evaluation Ischemic workup including Lexiscan stress test ordered 10/28 but unable to be completed due to severe hypertension (3) Nausea & vomiting: Code(s): R11.2 - Nausea with vomiting, unspecified Status: Acute Assessment and Plan: Resolved. Likely secondary to acute cholecystitis Lipase normal At this time she is tolerating her diet IV fluids discontinued 10/28 (4) Acute calculous cholecystitis: Code(s): K80.00 - Calculus of gallbladder with acute cholecystitis without obstruction Status: Acute Assessment and Plan: Presented with epigastric abdominal pain, nausea, and vomiting for [address] of the abdomen/pelvis showed cholelithiasis likely associated acute cholecystitis Planning for outpatient cholecystectomy Continue low fat diet IV Zosyn. Continue antibiotics to complete 7 days of therapy per general surgery, appreciate their consultation She will need to follow up with general surgery as an outpatient (5) Tobacco abuse: Code(s): Z72.0 - Tobacco use Status: Acute Assessment and Plan: Patient has smoked 1/2 pack per day for 40 years Continue to reinfoce smoking cessation (6) Hypokalemia: Code(s): E87.6 - Hypokalemia Status: Acute Assessment and Plan: Improved. Potassium 3.4 today Anticipate continued improvement as patient is now tolerating diet Continue to monitor BMP (7) Hypoxia: Code(s): R09.02 - Hypoxemia Status: Acute Assessment and Plan: -has been requiring 2L NC for several days -she is a current smoker but does not use home oxygen -covid test on arrival negative, repeat test also negative -influenza negative -cxr on arrival w/ cardiomegaly and hyperinflation -CTA negative for PE, did show pulmonary edema -started IV lasix 40 mg daily -continue to wean oxygen as tolerated -repeat CXR tomorrow Subjective Date/time seen: 11/01/21 13:19 Interval history: Daniela Sanches is a 56-year-old female with history of hypertension and tobacco abuse who is seen in follow-up for hypertensive urgency and cholelithiasis. Pt is still not feeling well today. She feels as if her breathing is still heavy. Still having some chest tightness. No N/V/abd pain. Diarrhea has resolved. She is currently requiring 2L NC and does not normally wear home oxygen. Review of Systems Review of Systems: All systems reviewed & are unr
[2021-11-01 15:00] LABS: Anion Gap 4 mmol/L (8-16); Blood Urea Nitrogen 13 mg/dL (7-17); Calcium 8.6 mg/dL (8.4-10.2); Carbon Dioxide 35 mmol/L (22-30); Chloride 95 mmol/L (98-107); Estimated CRCL calculation 46 ml/min; Estimated Glomerular Filt Rate 46; Glucose 217 mg/dL (65-110); Potassium 3.9 mmol/L (3.4-5.0); Sodium 134 mmol/L (137-145)
[2021-11-02] VITALS (9 sets, daily range): BP systolic 159–185; BP diastolic 50–79; PULSE 61–71; RESP 16–22; TEMP 35.8–36.8; O2SAT 93–96
[2021-11-02 06:21] LABS: Basophils Absolute Auto 0.1 K/mm3 (0.0-0.1); Eosinophils Absolute Auto 0.2 K/mm3 (0-0.3); Eosinophils Percent Auto 2.4 % (0-4.4); Hematocrit 45.7 % (37.0-47.0); Hemoglobin 13.3 g/dL (12.0-15.0); Immature Granulocyte Absolute 0.03 K/mm3 (0.00-0.031); Immature Granulocyte Percent A 0.4 % (0-0.5); Lymphocytes Absolute Auto 1.31 K/mm3 (0.9-3.2); Lymphocytes Percent Auto 17.8 % (18.3-44.2); Mean Corpuscular HGB Conc 29.1 g/dl (32-36); Mean Corpuscular Hemoglobin 24.7 pg (26-34); Mean Corpuscular Volume 84.9 fl (80-100); Mean Platelet Volume 12.3 fl (7.4-10.4); Monocytes Absolute Auto 0.9 K/mm3 (0.1-0.6); Monocytes Percent Auto 12.5 % (2.6-8.5); Neutrophils Absolute Auto 4.8 K/mm3 (1.3-6.7); Neutrophils Percent Auto 65.9 % (45.5-73.1); Platelet Count Result 241 k/mm3 (150-375); Red Blood Count 5.38 M/mm3 (4.2-5.4); Red Cell Distribution Width 15.8 % (11.5-14.5); White Blood Count 7.4 K/mm3 (4.5-10.0)
[2021-11-02 06:34] LABS: Alanine Aminotransferase 15 U/L (4-35); Albumin Level 3.4 g/dL (3.5-5.1); Alkaline Phosphatase 69 U/L (38-126); Anion Gap 4 mmol/L (8-16); Aspartate Amino Transferase 25 U/L (14-36); Bilirubin,Total 0.5 mg/dL (0.2-1.3); Blood Urea Nitrogen 14 mg/dL (7-17); Calcium 8.5 mg/dL (8.4-10.2); Carbon Dioxide 35 mmol/L (22-30); Chloride 96 mmol/L (98-107); Estimated CRCL calculation 55 ml/min; Estimated Glomerular Filt Rate 57; Glucose 144 mg/dL (65-110); Potassium 3.4 mmol/L (3.4-5.0); Sodium 135 mmol/L (137-145)
--- NOTE | 2021-11-02 09:16 | PM.PNCARD ---
Progress Note: A&P Additional Plan Severe hypertension in this 56-year-old lady now on the above multi-drug regimen for hypertension with reasonable control. From my perspective she is stable for discharge at this time. It is obviously critically important that she become established with a primary care physician after discharge for ongoing follow-up and hypertension management. Stress the importance of this to the patient particularly since she is on clonidine and the phenomenon of rebound hypertension if she is noncompliant with it is important to recognize Ferdinand Perales MD [facility] Subjective Date/time seen: Date of service: 11/02/21 09:16 Interval history: Follow-up visit in this 56-year-old lady with: Severe hypertension with hypertensive urgency upon arrival to the hospital. She has been placed on a multi-drug regimen with reasonable control of blood pressure at this time. Entering the room to see her this morning she sleeping flat in bed obviously comfortable and asymptomatic. Exam Narrative: Awake, alert, and oriented. Const: General: comfortable and no acute distress HENMT: General nose exam: Normal nares present Eyes: Sclera: sclerae normal Neck: Neck: supple and no JVD Chest: Other: No reproducible chest wall pain to palpation Resp: Auscultation: clear to auscultation bilaterally and diminished lung sounds Cardio: Rate: regular rate Rhythm: regular rhythm GI: Auscultation: normal bowel sounds Skin: General skin exam: normal color Neuro: Cranial nerves: Yes Normal hearing present Cognition (Neuro): normal cognition Speech: normal speech and No Abnormal speech present Extrem: General: normal to inspection Psych: Mental Status: mental status grossly normal Objective Data Vital Signs Vital Signs: Vital Signs - 24 hr 11/01/21 10:00 11/01/21 12:00 11/01/21 14:00 Temperature 36.4 C L Pulse Rate 66 61 66 Respiratory Rate 21 H Blood Pressure 137/67 Pulse Oximetry 100 11/01/21 16:00 11/01/21 18:00 11/01/21 19:40 Temperature 36.4 C Pulse Rate 64 67 65 Respiratory Rate 21 H Blood Pressure 121/76 Pulse Oximetry 100 11/01/21 20:00 11/01/21 22:00 11/02/21 00:00 Temperature 36.5 C 36.8 C Pulse Rate 65 61 61 Respiratory Rate 22 H 19 Blood Pressure 111/61 166/71 H Pulse Oximetry 100 96 11/02/21 02:00 11/02/21 04:00 11/02/21 06:00 Temperature 36.1 C L Pulse Rate 64 64 67 Respiratory Rate 18 Blood Pressure 159/50 H Pulse Oximetry 96 11/02/21 08:00 Temperature Pulse Rate 70 Respiratory Rate Blood Pressure Pulse Oximetry Intake/Output Intake/Output: Intake & Output 10/30/21 10/31/21 11/01/21 11/02/21 23:59 23:59 23:59 23:59 Intake Total 3980 1290 2070 1300 Output Total 4450 4700 5300 2100 [facility] -[phone] -[phone] Meds/Results Medications: Active Medications Generic Name Dose Route Start Last Admin Trade Name Freq PRN Reason Stop Dose Admin Acetaminophen 650 mg 10/31/21 08:07 11/01/21 19:40 Acetaminophen 325 Mg Tablet PO 650 mg Q6H PRN Administration Mild Pain (1-3) or Fever Amlodipine Besylate 10 mg 10/28/21 09:00 11/01/21 08:36 Amlodipine Besylate 5 Mg Tablet PO 10 mg QAM ROSLYN Administration Aspirin 81 mg 10/28/21 09:00 11/01/21 08:36 Aspirin 81 Mg Enteric Tablet PO 81 mg QAM ROSLYN Administration Atorvastatin Calcium 20 mg 10/29/21 09:00 11/01/21 08:36 Atorvastatin 20 Mg Tablet PO 20 mg DAILY ROSLYN Administration Carvedilol 3.125 mg 10/31/21 21:00 11/01/21 19:40 Carvedilol 3.125 Mg Tablet PO 3.125 mg Q12HR ROSLYN Administration Clonidine HCl 0.1 mg 10/31/21 09:00 11/01/21 17:51 Clonidine Hcl 0.1 Mg Tablet PO 0.1 mg TID ROSLYN Administration Hydralazine HCl 10 mg 10/26/21 01:50 10/31/21 04:45 Hydralazine Hcl 20 Mg/Ml Vial IV PUSH 10 mg Q8H PRN Administration Blood Pressure - High PMD=957 Piperacillin/Tazobactam/Dextrose 3.37
[2021-11-02] MEDS: ATORVASTATIN 20 MG TABLET PO (09:19)
[2021-11-02] MEDS: cloNIDine HCL 0.1 MG TABLET PO ×2 (09:19→12:32)
[2021-11-02] MEDS: carvediloL 3.125 MG TABLET PO (09:19)
[2021-11-02] MEDS: amLODIPine BESYLATE 5 MG TABLET 10 MG PO (09:19)
[2021-11-02] MEDS: LOSARTAN POTASSIUM 50 MG TABLET PO (09:19)
[2021-11-02] MEDS: ASPIRIN 81 MG ENTERIC TABLET PO (09:19)
[2021-11-02] MEDS: PANTOPRAZOLE SODIUM IV 40 MG VIAL IV PUSH (09:20)
--- NOTE | 2021-11-02 12:37 | P.DS_ITS ---
DS: Admitting Diagnosis Discharge Date 11/02/21 Admitting Diagnosis hypertensive emergency DS: Discharge Diagnosis Discharge Diagnosis (1) Hypertensive emergency: Code(s): I16.1 - Hypertensive emergency Status: Acute Assessment and Plan: BP on presentation was 282/180 * Received IV labetalol and hydralazine * She had not been on any antihypertensive medications prior to admission * She was unable to proceed with stress test as BP elevated still at 210/140 * She does complain of chest tightness with elevated troponins. No other signs/symptoms of end-organ damage * Echo reviewed which showed LVH with speckled pattern the myocardium consistent with infiltrative cardiomyopathy, likely secondary to uncontrolled HTN * Caution to avoid lowering blood pressure too much and/or too rapidly * ApneaLink reviewed, not concerning for pathologic breathing disorder * Initiated on aspirin 81 mg daily * Continue amlodipine 10 mg, losartan (increased to 50 mg), carvedilol (increased to 6.125 mg BID) * Also added clonidine 10/31 * renal US negative for renal artery stenosis * urine metanephrines pending * CXR w/ pulmonary edema, was diuresed with IV lasix with improvement * improving * Per cardiology patient is stable for discharge at this time. He as well as I have stressed to the patient that she follow up with primary care physician after discharge for ongoing follow-up and hypertension management. (2) Elevated troponin: Code(s): R77.8 - Other specified abnormalities of plasma proteins Status: Acute Assessment and Plan: Most likely secondary to severe hypertension * Acute coronary syndrome felt to be unlikely per Cardiology evaluation * Ischemic workup including Lexiscan stress test ordered 10/28 but unable to be completed due to severe hypertension * cardiology cleared for discharge, she can follow up outpatient (3) Nausea & vomiting: Code(s): R11.2 - Nausea with vomiting, unspecified Status: Acute Assessment and Plan: Resolved. * Likely secondary to acute cholecystitis * Lipase normal * At this time she is tolerating her diet * IV fluids discontinued 10/28 (4) Acute calculous cholecystitis: Code(s): K80.00 - Calculus of gallbladder with acute cholecystitis without obstruction Status: Acute Assessment and Plan: Presented with epigastric abdominal pain, nausea, and vomiting for 2 days * CT of the abdomen/pelvis showed cholelithiasis likely associated acute cholecystitis * Planning for outpatient cholecystectomy * Continue low fat diet * Completed 8 days of Zosyn * She will need to follow up with general surgery as an outpatient (5) Tobacco abuse: Code(s): Z72.0 - Tobacco use Status: Acute Assessment and Plan: Patient has smoked 1/2 pack per day for 40 years * Continue to reinfoce smoking cessation (6) Hypokalemia: Code(s): E87.6 - Hypokalemia Status: Acute Assessment and Plan: Improved. Potassium 3.4 today * Anticipate continued improvement as patient is now tolerating diet * Continue to monitor BMP (7) Hypoxia: Code(s): R09.02 - Hypoxemia Status: Acute Assessment and Plan: -had been requiring 2L NC for several days -she is a current smoker but does not use home oxygen -covid test on arrival negative, repeat test also negative -influenza negative -cxr on arrival w/ cardiomegaly and hyperinflation
--- NOTE | 2021-11-02 12:37 | PM.DS ---
DS: Admitting Diagnosis Discharge Date 11/02/21 Admitting Diagnosis hypertensive emergency DS: Discharge Diagnosis Discharge Diagnosis (1) Hypertensive emergency: Code(s): I16.1 - Hypertensive emergency Status: Acute Assessment and Plan: BP on presentation was 282/180 Received IV labetalol and hydralazine She had not been on any antihypertensive medications prior to admission She was unable to proceed with stress test as BP elevated still at 210/140 She does complain of chest tightness with elevated troponins. No other signs/symptoms of end-organ damage Echo reviewed which showed LVH with speckled pattern the myocardium consistent with infiltrative cardiomyopathy, likely secondary to uncontrolled HTN Caution to avoid lowering blood pressure too much and/or too rapidly ApneaLink reviewed, not concerning for pathologic breathing disorder Initiated on aspirin 81 mg daily Continue amlodipine 10 mg, losartan (increased to 50 mg), carvedilol (increased to 6.125 mg BID) Also added clonidine 10/31 renal US negative for renal artery stenosis urine metanephrines pending CXR w/ pulmonary edema, was diuresed with IV lasix with improvement improving Per cardiology patient is stable for discharge at this time. He as well as I have stressed to the patient that she follow up with primary care physician after discharge for ongoing follow-up and hypertension management. (2) Elevated troponin: Code(s): R77.8 - Other specified abnormalities of plasma proteins Status: Acute Assessment and Plan: Most likely secondary to severe hypertension Acute coronary syndrome felt to be unlikely per Cardiology evaluation Ischemic workup including Lexiscan stress test ordered 10/28 but unable to be completed due to severe hypertension cardiology cleared for discharge, she can follow up outpatient (3) Nausea & vomiting: Code(s): R11.2 - Nausea with vomiting, unspecified Status: Acute Assessment and Plan: Resolved. Likely secondary to acute cholecystitis Lipase normal At this time she is tolerating her diet IV fluids discontinued 10/28 (4) Acute calculous cholecystitis: Code(s): K80.00 - Calculus of gallbladder with acute cholecystitis without obstruction Status: Acute Assessment and Plan: Presented with epigastric abdominal pain, nausea, and vomiting for [address] of the abdomen/pelvis showed cholelithiasis likely associated acute cholecystitis Planning for outpatient cholecystectomy Continue low fat diet Completed 8 days of Zosyn She will need to follow up with general surgery as an outpatient (5) Tobacco abuse: Code(s): Z72.0 - Tobacco use Status: Acute Assessment and Plan: Patient has smoked 1/2 pack per day for 40 years Continue to reinfoce smoking cessation (6) Hypokalemia: Code(s): E87.6 - Hypokalemia Status: Acute Assessment and Plan: Improved. Potassium 3.4 today Anticipate continued improvement as patient is now tolerating diet Continue to monitor BMP (7) Hypoxia: Code(s): R09.02 - Hypoxemia Status: Acute Assessment and Plan: -had been requiring 2L NC for several days -she is a current smoker but does not use home oxygen -covid test on arrival negative, repeat test also negative -influenza negative -cxr on arrival w/ cardiomegaly and hyperinflation -CTA negative for PE, did show pulmonary edema -started IV lasix 40 mg daily with significant improvement -she is now on room air with oxygen saturation of 99% DS: Summary Hospital Course Reason for hospitalization: Daniela Sanches is a 56-year-old female with history of hypertension and tobacco abuse who is seen in follow-up for hypertensive urgency and cholelithiasis. Please see HPI for further details. Hospital Course: Please see above for details of hospital course. Time
[2021-11-02 13:04] LABS: Renin 3.59 ng/mL/h (0.25-5.82)
[2021-11-02 14:50] LABS: Anion Gap 5 mmol/L (8-16); Blood Urea Nitrogen 13 mg/dL (7-17); Calcium 8.6 mg/dL (8.4-10.2); Carbon Dioxide 32 mmol/L (22-30); Chloride 98 mmol/L (98-107); Estimated CRCL calculation 55 ml/min; Estimated Glomerular Filt Rate 57; Glucose 106 mg/dL (65-110); Potassium 3.7 mmol/L (3.4-5.0); Sodium 135 mmol/L (137-145)
--- NOTE | 2021-11-05 10:28 | PC.NURSE ---
Renin is WNL at 3.59
== END 2021-11-02 15:00 | disposition home or self-care (01) | DRG 199 ==
LOC: ANHED 23:51 → ANHCPC 10-26 01:11
PROVIDERS: Internal Medicine; Internal Medicine Cardiovascular Disease; Nurse Practitioner; Physician Assistant; Admitting Provider Internal Medicine; Emergency Provider Emergency Medicine; Visit Provider Internal Medicine
DX: I16.1 Hypertensive emergency (principal); I13.0 Hypertensive heart and chronic kidney disease with heart failure and stage 1 through stage 4 chronic kidney disease, or unspecified chronic kidney disease; R77.8 Other specified abnormalities of plasma proteins; K80.00 Calculus of gallbladder with acute cholecystitis without obstruction; Z20.822 Contact with and (suspected) exposure to COVID-19; F17.210 Nicotine dependence, cigarettes, uncomplicated; I25.2 Old myocardial infarction; N18.30 Chronic kidney disease, stage 3 unspecified; I50.9 Heart failure, unspecified; E87.6 Hypokalemia; R09.02 Hypoxemia; Z91.19 Patient's noncompliance with other medical treatment and regimen
CPT/HCPCS: 36415; 70450; 71045; 71046; 71275; 74176; 76705; 80048; 80053; 80061; 81001; 82088; 83690; 83735; 83835; 84244; 84484; 85025; 85027; 85055; 85610; 85730; 87804; 93005; 93306; 93976; 94762; 96365; 96366; 96374; 96375; 96376; 99285; A9270; C9113; C9803; G0378; G0379; J0360; J0780; J1940; J2270; J2405; J2543; J7030; J7120; Q9967; U0003; U0005

== ENCOUNTER 2022-01-08 07:14 | Inpatient (IN) | payer OTHER, SELFPAY ==
[2022-01-08] VITALS (27 sets, daily range): BP systolic 117–254; BP diastolic 58–214; PULSE 54–95; RESP 14–25; TEMP 36.2–36.7; O2SAT 90–100
--- NOTE | ~2022-01-08 | XR_ITS ---
EXAMINATION: XR chest 1V portable DATE: 01/08/2022 07:30 INDICATION: Dyspnea TECHNIQUE: frontal view of the chest was obtained. COMPARISON: Chest radiograph dated 11/02/2021 FINDINGS: This is rotated slightly towards the right. No focal airspace opacities, pulmonary edema, pleural eff usion or pneumothorax. Cardiomegaly. IMPRESSION: 1. Cardiomegaly Reviewed, dictated and finalized at location A. IMPRESSION: 1. Cardiomegaly
--- NOTE | ~2022-01-08 | CT_ITS ---
EXAMINATION: CTA chest abdomen DATE: 01/08/2022 08:13 INDICATION: Shortness of breath and chest pain TECHNIQUE: Computed tomographic angiography (CTA) of the chest and abdomen was performed with 100 mL Omnipque-350 intravenous contrast. Maximum intensity projection 3D-reconstructions of the aorta and o ther arteries were constructed by the technologist on a separate workstation. The dose-length product (DLP) was 679.45 mGy-cm. Automated exposure control and iterative reconstruction technique were empl oyed. COMPARISON: 10/30/2021 FINDINGS: CHEST CTA: There is no aneurysm or dissection of the thoracic aorta. There is calcified atherosclerosis and mild stenosis at the origin of the left subclavian artery. There is calcified atherosclerosis of the thor acic aorta. Calcified coronary artery atherosclerosis is also noted. There is a small right pleural e ffusion. There is a 5 mm nodule in the right lower lobe with mild enlargement since the comparison ex amination. There is a 3 mm nodule of the right middle lobe. Cardiomegaly is noted. There is mild pulm onary edema. There is right hilar, subcarinal, right paratracheal, and aorticopulmonary window lympha denopathy. ABDOMEN AND PELVIS CTA: There is no aneurysm or dissection of the abdominal aorta. There is calcified atherosclerosis of the aorta and many of the other arteries. There is calcified atherosclerosis with mild stenosis of the or igin of the celiac axis and superior mesenteric artery. Single renal arteries are present. The liver, spleen, pancreas, and adrenal glands are normal. A stone is present in the nondistended gallbladder. The kidneys are unremarkable. The appendix is normal. There is mild lumbar spondylosis. IMPRESSION: 1. No aneurysm or dissection of the thoracic or abdominal aorta. 2. Cardiomegaly with mild pulmonary edema and small right pleural effusion. 3. Right hilar and mediastinal lymphadenopathy which may be reactive versus metastatic disease. 4. Right lower lobe nodule with apparent slight increase in size. Finding may be infectious/inflammat ory versus malignancy. Follow-up CT in three months is recommended. Reviewed, dictated and finalized at location A. IMPRESSION: 1. No aneurysm or dissection of the thoracic or abdominal aorta. 2. Cardiomegaly with mild pulmonary edema and small right pleural effusion. 3. Right hilar and mediastinal lymphadenopathy which may be reactive versus met astatic disease. 4. Right lower lobe nodule with apparent slight increase in size. Finding may b e infectious/inflammatory versus malignancy. Follow-up CT in three months is re commended.
--- NOTE | ~2022-01-08 | US_ITS ---
EXAMINATION: US pelvic complete w TV DATE: 01/10/2022 14:47 INDICATION: Postmenopausal vaginal bleeding. TECHNIQUE: Multiple transabdominal and transvaginal sonographic images of the pelvis were obtained. COMPARISON: CT abdomen and pelvis 10/26/2021 FINDINGS: TRANSABDOMINAL ULTRASOUND: The uterus measures 6.7 x 4.0 x 3.1 cm. There is trace free fluid in the pelvis. TRANSVAGINAL ULTRASOUND: The endometrial complex measures 10 mm in thickness. There is a 12 mm hypoechoic mass in the anterior lower uterine segment. The right ovary measures 2.2 x 1.5 x 1.4 cm. The left ovary measures 1.8 x 1. 1 x 1.0 cm. IMPRESSION: 1. Thickened endometrial complex. The differential diagnosis includes endometrial hyperplasia, polyp, and carcinoma. Biopsy is recommended. 2. 12 mm hypoechoic mass in anterior lower uterine segment, which may be a fibroid or sectio n scar (if the patient has such a history). Reviewed, dictated and finalized at location A. IMPRESSION: 1. Thickened endometrial complex. The differential diagnosis includes endometri al hyperplasia, polyp, and carcinoma. Biopsy is recommended. 2. 12 mm hypoechoic mass in anterior lower uterine segment, which may be a fibr oid or section scar (if the patient has such a history).
--- NOTE | 2022-01-08 07:22 | ECG_ITS ---
Measurements Intervals [place] Rate: 92 P: 90 [place]: 151 QRS: 118 QRSD: 110 T: 246 QT: 400 QTc: 497 Interpretive Statements SINUS RHYTHM RIGHT AXIS DEVIATION LEFT ATRIAL ENLARGEMENT INTRAVENTRICULAR CONDUCTION DELAY ST-T WAVE ABNORMALITY IN INFERIOR LEADS- CONSIDER ISCHEMIA BASELINE WANDER- V6 ABNORMAL ECG Electronically Signed On 01-09-2022 12:20:58 CDT by Thom Jay D.O.
--- NOTE | 2022-01-08 07:24 | ED.GENADULT ---
HPI - General Adult General Chief complaint: Shortness of Breath/Dyspnea Stated complaint: trouble breathing Time Seen by Provider: 01/08/22 07:23 Source: patient, family and RN notes reviewed Mode of arrival: ambulatory Limitations: no limitations History of Present Illness HPI narrative: Patient is 56 years old white female presented to the ED with chest pain, back pain, burning sensation between shoulder blades, nausea, shortness of breath started 1 week ago has been constant since. She denies any fever, chills, or abdominal pain. History of hypertension, hyperlipidemia, smoking, coronary artery disease, did not refill her medication over 2 weeks ago. Related Data Allergies Allergy/AdvReac Type Severity Reaction Status Date / Time No Known Allergies Verified 09/09/10 08:30 Review of Systems Review of Systems: All systems reviewed & are unremarkable except as noted in HPI and below PMFSH Past Medical History Medical History Hypertension Tobacco use Family History Family History Father COPD (chronic obstructive pulmonary disease) Social History Social History Smoking packs per day: 0.5 Smoking cigarettes per day: 10.0 Years smoked: 40 Smoking pack-years: 20.00 Smoking status: Current every day smoker Tobacco type: cigarettes Alcohol intake: never Substance use: current Substance use type: marijuana Other substance usage details: on occasion smokes marijuana Spiritual care concerns: No Exam Narrative: General appearance: Well-developed, well-nourished, looks ill Skin: Normal color Head: Normocephalic, nontraumatic Eyes: Clear conjunctiva ENT: Oropharynx normal, ears normal, nose normal Neck: Supple, nontender Chest and respiratory: Airway patent, no respiratory distress, no accessory muscle use Heart: Regular rate/rhythm Abdomen: Soft, nontender, no organomegaly, quiet bowel sounds Vascular: Normal peripheral pulses, normal capillary refill. Musculoskeletal: Normal range of motion, nontender back Neurologic: Alert and oriented ?3, [employer] is normal as tested, no gross motor deficit Course Vital Signs Vital signs: Vital Signs Pulse Rate 95 01/08/22 07:20 Respiratory Rate 20 01/08/22 07:20 Pulse Oximetry 99 01/08/22 07:20 Temperature 36.3 C L 01/08/22 07:28 Pulse Rate 93 01/08/22 07:47 Respiratory Rate 23 H 01/08/22 07:47 Blood Pressure 254/214 H 01/08/22 07:32 Pulse Oximetry 98 01/08/22 07:47 Medical Decision Making Vital Signs Vital Signs: Vital Signs Pulse Rate 95 01/08/22 07:20 Respiratory Rate 20 01/08/22 07:20 Pulse Oximetry 99 01/08/22 07:20 Temperature 36.3 C L 01/08/22 07:28 Pulse Rate 93 01/08/22 07:47 Respiratory Rate 23 H 01/08/22 07:47 Blood Pressure 254/214 H 01/08/22 07:32 Pulse Oximetry 98 01/08/22 07:47 Lab Data Result diagrams: 01/08/22 07:33 01/08/22 07:33 Labs: Lab Results 01/08/22 01/08/22 01/08/22 Range/Units 07:33 07:33 07:33 WBC 10.8 H (4.5-10.0) K/mm3 RBC 5.14 (4.2-5.4) M/mm3 Hgb 13.3 (12.0-15.0) g/dL Hct 42.2 (37.0-47.0) % MCV 82.1 (80-100) fl MCH 25.9 L (26-34) pg MCHC 31.5 L (32-36) g/dl RDW 20.4 H (11.5-14.5) % Plt Count 229 (150-375) k/mm3 MPV 11.3 H (7.4-10.4) fl Immature Gran % (Auto) 0.5 (0-0.5) % Neut % (Auto) 77.1 H (45.5-73.1) % Lymph % (Auto) 14.8 L (18.3-44.2) % [place] % (Auto) 6.7 (2.6-8.5) % Eos % (Auto) 0.3 (0-4.4) % Baso % (Auto) 0.6 (0.2-1.2) % Lymph # (Auto) 1.60
[2022-01-08 07:41] LABS: Basophils Absolute Auto 0.1 K/mm3 (0.0-0.1); Basophils Percent Auto 0.6 % (0.2-1.2); Eosinophils Percent Auto 0.3 % (0-4.4); Hematocrit 42.2 % (37.0-47.0); Hemoglobin 13.3 g/dL (12.0-15.0); Immature Granulocyte Absolute 0.05 K/mm3 (0.00-0.031); Immature Granulocyte Percent A 0.5 % (0-0.5); Immature Platelet Fraction Pct 8.5 % (0.9-11.2); Lymphocytes Percent Auto 14.8 % (18.3-44.2); Mean Corpuscular HGB Conc 31.5 g/dl (32-36); Mean Corpuscular Hemoglobin 25.9 pg (26-34); Mean Corpuscular Volume 82.1 fl (80-100); Mean Platelet Volume 11.3 fl (7.4-10.4); Monocytes Absolute Auto 0.7 K/mm3 (0.1-0.6); Monocytes Percent Auto 6.7 % (2.6-8.5); Neutrophils Absolute Auto 8.4 K/mm3 (1.3-6.7); Neutrophils Percent Auto 77.1 % (45.5-73.1); Platelet Count Result 229 k/mm3 (150-375); Red Blood Count 5.14 M/mm3 (4.2-5.4); Red Cell Distribution Width 20.4 % (11.5-14.5); White Blood Count 10.8 K/mm3 (4.5-10.0)
[2022-01-08 07:54] LABS: Alanine Aminotransferase 25 U/L (4-35); Albumin Level 4.5 g/dL (3.5-5.1); Alkaline Phosphatase 129 U/L (38-126); Anion Gap 9 mmol/L (8-16); Aspartate Amino Transferase 41 U/L (14-36); Bilirubin,Total 0.9 mg/dL (0.2-1.3); Blood Urea Nitrogen 25 mg/dL (7-17); Calcium 9.3 mg/dL (8.4-10.2); Carbon Dioxide 25 mmol/L (22-30); Chloride 102 mmol/L (98-107); Estimated CRCL calculation 51 ml/min; Estimated Glomerular Filt Rate 51; Glucose 219 mg/dL (65-110); Lipase 99 U/L (23-300); Potassium 3.8 mmol/L (3.4-5.0); Sodium 136 mmol/L (137-145)
[2022-01-08] MEDS: ASPIRIN 81 MG CHEWABLE TABLET 324 MG PO (07:56)
[2022-01-08] MEDS: ONDANSETRON INJ 4 MG/2 ML VIAL IV PUSH (07:57)
[2022-01-08] MEDS: MORPHINE SULFATE (*CRX) 4 MG/ML INJ IV PUSH (07:57)
[2022-01-08] MEDS: NITROGLYCERIN OINTMENT 1 INCH DOSE 2 INCH TRANSDERM (07:57)
[2022-01-08] MEDS: LABETALOL HCL INJ 100 MG/20 ML VIAL 20 MG IV PUSH ×2 (07:57→08:18)
[2022-01-08 07:59] LABS: INR 1.2; Partial Thromboplastin Time 27.6 SECONDS (22.3-36.8); Prothrombin Time 14.8 Seconds (11.1-14.7)
[2022-01-08 08:09] LABS: Troponin I 0.087 ng/mL (0.000-0.034)
[2022-01-08 09:36] LABS: SARS-CoV-2 RNA PCR Negative
[2022-01-08] MEDS: FUROSEMIDE INJ 40 MG/4 ML VIAL IV PUSH ×2 (09:46→17:58)
[2022-01-08] MEDS: ENOXAPARIN 80 MG/0.8 ML SYRINGE SUB-Q ×2 (09:46→20:48)
--- NOTE | 2022-01-08 10:25 | ADMGEN ---
This patient, Daniela Sanches, was admitted to IMU Room 211-01. Patient/family oriented to hospital policies and general routines including ID bracelet, bed and alarms, visiting hours, pain management, procedures, bathroom and other care routines, personal items, smoking policy, room service/diet, and visiting hours. Information on how to activate the Rapid Response Team has been discussed. Patient/Family are encouraged to report perceived risks to care and to ask questions if they do not understand what they are told or what they should do.
[2022-01-08 10:53] LABS: Troponin I 0.136 ng/mL (0.000-0.034)
--- NOTE | 2022-01-08 11:02 | PM.CNCAR ---
Assessment and Plan Assessment and plan (1) Non-STEMI (non-ST elevated myocardial infarction): Code(s): I21.4 - Non-ST elevation (NSTEMI) myocardial infarction Status: Acute Assessment and Plan: Likely related to hypertensive crisis. Unlikely from acute plaque rupture but acute plaque rupture is not completely excluded to this point. Continue to trend troponins. Will Start aspirin 81 mg p.o. daily, atorvastatin 20 mg p.o. daily. Repeat EKG tomorrow with better blood pressure control (2) Hypertensive heart disease: Qualifiers: Heart failure presence: with heart failure Heart failure type: unspecified Qualified Code(s): I11.0 - Hypertensive heart disease with heart failure Code(s): I11.9 - Hypertensive heart disease without heart failure Status: Acute Assessment and Plan: Losartan 25 mg p.o. daily to be started as well as carvedilol 3.125 mg p.o. b.i.d.. First dose now. Patient was also on amlodipine previously and will start her on amlodipine 10 mg daily. (3) Tobacco abuse: Code(s): Z72.0 - Tobacco use Status: Acute Assessment and Plan: Tobacco abuse counseled performed (4) Hypertensive emergency: Code(s): I16.1 - Hypertensive emergency Status: Acute Assessment and Plan: Markedly elevated. Secondary to medication noncompliance as her medications ran out she did not have been refilled. As above. Will start losartan, carvedilol, amlodipine. Nitroglycerin paste 1 in topically for now. (5) Non-compliant patient: Code(s): Z91.19 - Patient's noncompliance with other medical treatment and regimen Status: Acute Assessment and Plan: Encouraged better compliance and follow-up with healthcare providers. (6) Pulmonary nodule: Code(s): R91.1 - Solitary pulmonary nodule Status: Acute Assessment and Plan: Consult pulmonology for further investigation workup a pulmonary nodule and lymphadenopathy. May need oncology evaluation also (7) COPD (chronic obstructive pulmonary disease): Code(s): J44.9 - Chronic obstructive pulmonary disease, unspecified Status: Acute Assessment and Plan: Consult pulmonology History of Present Illness History of Present Illness Consult date/time: 01/08/22 11:02 Requesting physician: Nely Logan MD Consult reason: chest pain and Other (Elevated troponin) Reason For Visit: Chest pain/emergency hypertension Narrative: Date of service 01/08/2022 Reason for consultation: Chest pain, elevated troponin, hypertensive crisis Requesting provider: Dr. Logan History patient is a 56-year-old female who I saw in October for similar presentation. She was discharged home on oral medications and to have outpatient follow-up but has not followed up nor has she establish care with anyone else in her medications ran out and she has not been taking anything for her blood pressure for the past 2 weeks. Since that time over the past couple of weeks she has had worsening shortness of breath, chest pain and upper back and left armpit area as well as into the anterior chest. It is not exertional but is worsened with her shortness of breath. She does describe paroxysmal nocturnal dyspnea and orthopnea. No edema. No palpitations. No syncope or presyncope. Because of these symptoms she came to the hospital for further workup evaluation. She has been found to have a markedly elevated blood pressure presentation with a blood pressure systolic over 250 and diastolic of 148. Troponins were drawn which were minimally elevated at 0.08. She is being admitted for hypertensive crisis, CHF and chest pain. She was given IV medications in the emergency department but no oral medications were started in the ED. nitroglycerin paste is placed. CT scan is concerning for an enlarging pulmonary nodule and lymphadenopathy Review of Systems Review of Systems: All systems reviewed & are unremarkable exce
[2022-01-08] MEDS: amLODIPine BESYLATE 5 MG TABLET 10 MG PO (13:35)
[2022-01-08] MEDS: carvediloL 3.125 MG TABLET PO ×2 (13:35→20:44)
--- NOTE | 2022-01-08 14:06 | ECG_ITS ---
Measurements Intervals [place] Rate: 61 P: 79 [place]: 145 QRS: 116 QRSD: 104 T: 192 QT: 485 QTc: 491 Interpretive Statements SINUS RHYTHM RIGHT AXIS DEVIATION LEFT ATRIAL ENLARGEMENT LEFT VENTRICULAR HYPERTROPHY AND ST-T CHANGE ST-T WAVE ABNORMALITY IN ANTEROLAT/INF LEADS- CONSIDER ISCHEMIA ABNORMAL ECG Electronically Signed On 01-08-2022 15:14:31 CDT by Thom Jay D.O.
--- NOTE | 2022-01-08 14:10 | PM.IMHP ---
H&P: HPI History of Present Illness Date/Time: 01/08/22 14:10 Chief Complaint: Shortness of breath. Narrative: This is a pleasant 56-year-old female smoker with very mild coronary artery disease on cardiac catheterization in 2010, poorly controlled hypertension, COPD, anxiety, and depression who presented to the emergency department for evaluation of shortness of breath. It is somewhat difficult to get a clear history from the patient but from what I can gather she ran out of her blood pressure medications a little over week ago and since that time she has not been feeling well. More specifically she endorses progressive dyspnea and midsternal chest discomfort that she describes as burning and occasionally tight in nature. The discomfort will at times radiate to the left axilla, the shoulders, and the base of her neck. She has also been if feeling nauseated and she has had a couple of episodes of emesis. She has been using her nebulizers which seemed to help the shortness of breath somewhat. On arrival to the ER her blood pressure was significantly elevated with a systolic blood pressure of 250. Troponins were drawn and were minimally elevated however they have continued to rise. I re-evaluated the patient later in the afternoon and she was complaining of significant nausea and severe heartburn; she goes on to say that she never gets heartburn and in fact she tells me that her symptoms are similar to when she was told she had a heart attack in 2010 though at that time her catheterization did not show any obstructing lesions. She denies syncope, presyncope, palpitations, pleuritic pain, orthopnea, paroxysmal nocturnal dyspnea, and edema. No hematemesis, melena, or hematochezia. Review of Systems Review of Systems: Twelve systems were reviewed. No vertigo. No focal weakness or paresthesias. No cold or flu symptoms. No sick contacts. Except as documented, all other systems were reviewed and are negative. [facility] Past Medical History Medical History Abnormal echocardiogram Echocardiogram in October 29 showed low normal LV systolic function with an EF estimated 50 to 55%, severely increased LV wall thickness, grade 2 diastolic dysfunction, speckled/hyperechoic pattern of myocardium, consider infiltrative cardiomyopathy, mild aortic/mitral,/tricuspid regurgitation, and mild pulmonary hypertension with a PASP of 40 mmHg. Anxiety Bipolar disorder Chronic obstructive pulmonary disease Coronary artery disease Angiographically very mild coronary artery disease on cardiac catheterization in September 2010. Depression Hypertension Hypertensive heart disease Pulmonary nodule Tobacco use Surgical History Surgical History (Updated 01/08/22 @ 14:15 by Jelly Amin PA-C) History of cardiac catheterization (09/09/10) Angiographically very mild coronary artery disease on catheterization per Dr. Perales. History of tooth extraction Full mouth extraction History of tubal ligation Family History Family History (Updated 01/08/22 @ 14:15 by Jelly Amin PA-C) Father COPD (chronic obstructive pulmonary disease) Acute myocardial infarction Mother Acute myocardial infarction Social History Social History (Updated 01/08/22 @ 14:39 by Jelly Amin PA-C) Social History: Surrogate decision maker: Willie Varela, son. Code status: Full code. Smoking packs per day: 0.5 Smoking cigarettes per day: 10.0 Years smoked: 40 Smoking pack-years: 20.00 Smoking status: Current every day smoker Tobacco type: cigarettes Alcohol intake: never Substance use: current Substance use type: marijuana Other substance usage details: Occasional marijuana use. Spiritual care concerns: No Meds Home Medications and Allergies Home Medications Medication Instructions Recorded Confirmed Type amlodipine [Norvasc] 10 mg PO QAM #30 tablet 11/02/21 01/08/22 Rx aspirin 81 mg PO QAM #30 tablet 11/02/21 01/08/22 Rx atorvast
[2022-01-08] MEDS: NITROGLYCERIN SL 0.4 MG TABLET SUBLINGUAL (14:21)
[2022-01-08] MEDS: MORPHINE SULFATE (*CRX) 2 MG/ML INJ 1 MG IV PUSH (14:21)
[2022-01-08] MEDS: METOPROLOL TARTRATE INJ 5 MG/5 ML VIAL IV PUSH (14:22)
[2022-01-08] MEDS: cloNIDine HCL 0.1 MG TABLET PO ×3 (14:56→21:26)
[2022-01-08] MEDS: LOSARTAN POTASSIUM 25 MG TABLET PO ×2 (14:57)
[2022-01-08 15:24] LABS: Hemoglobin A1C 6.6 % (<5.7)
--- NOTE | 2022-01-08 16:40 | PM.CNPUL ---
Assessment and Plan Assessment and plan (1) Pulmonary nodule: Code(s): R91.1 - Solitary pulmonary nodule Status: Acute Assessment and Plan: Patient with a 40 pack year tobacco use, intermittent marijuana use and had a CTA on 01/08 demonstrating a 5 mm nodule in the right lower lobe and a 3 mm nodule in the right middle lobe. There was right hilar subcarinal right paratracheal lymphadenopathy. I reviewed the CT scan with the radiologist and when compared to a CT angiogram of the chest on 10/30/2021 the nodule has increased from approximately 4 mm than to 5 [address] recommend repeating [address] scan of the chest in 3 months. I have given the patient our business card so that she can call us when she is discharged for follow-up in Pulmonary clinic in 2 months. I have informed our museum service scheduler. Will sign off. Please call with any questions. (2) Tobacco abuse: Code(s): Z72.0 - Tobacco use Status: Acute Assessment and Plan: Patient is a current tobacco user at 5 cigarettes a day. I counseled her on tobacco cessation and provided her with techniques to quit. She is interested in quitting will attempt to do this. The patient may have COPD but there is no evidence of a COPD exacerbation at this time. The patient is symptomatic and will need outpatient PFTs to make this diagnosis. Since she is symptomatic at this time I would treat her with a long-acting muscarinic antagonist and I have initiated incruse ellipta 62.5 at 1 puff q.day. I would continue this on discharge and also prescribe her rescue albuterol 2 puffs Q6 hours p.r.n. shortness of breath or wheezing. History of Present Illness History of Present Illness Consult date: 01/08/22 Reason for consult: other ( Pulmonary nodule) Chief complaint: Chest pain/emergency hypertension Narrative: 01/08/2022: This is a new Pulmonary consultation for pulmonary nodule. 56-year-old woman with a history of hypertension who presented to the emergency room on 01/08 with hypertensive emergency secondary to running out of her hypertensive medicines a week ago. Patient had shortness of breath for the last week without fever, chills, rigors, wheezing, phlegm production or hemoptysis. Her blood pressure was initially 241/148 and she was treated. Her blood pressure is improved currently and she states that her breathing is 80% better. Patient had a CTA on 01/08 demonstrating a 5 mm nodule in the right lower lobe and a 3 mm nodule in the right middle lobe. There was right hilar subcarinal right paratracheal lymphadenopathy. I reviewed the CT scan with the radiologist and when compared to a CT angiogram of the chest on 10/30/2021 the nodule has increased from approximately 4 mm than to 5 mm now. Patient states she started smoking age 21 to current at approximately 1 pack per day for a total of 40 pack years. Currently she is smoking 5 cigarettes a day. Patient also states she smokes marijuana in either cigarette former pipe and takes about 5 inhalations every 3 days. Patient was exposed to secondhand smoke from her father. Patient denies other illicit drugs. Patient denies vaping, sandblasting, welding, asbestos were, professional painting. Patient worked in a [employer]. When the patient is feeling well she states she has 2 and half block dyspnea on exertion. She denies chronic wheezing or chronic phlegm production. She has had no COPD exacerbations in her life. She has been prescribed an albuterol inhaler and takes this when she is short of breath and has been taking this more frequently over the last week. DATA: EXAMINATION: CTA chest abdomen DATE: 01/08/2022 08:13 INDICATION: Shortness of breath and chest pain TECHNIQUE: Computed tomographic angiography (CTA) of the chest and abdomen was performed with 100 mL Omnipque-350 intravenous contrast. Maximum intensity projection 3D-reconstructions of the aorta and
[2022-01-08] MEDS: NITROGLYCERIN OINTMENT 1 INCH DOSE TRANSDERM (17:58)
[2022-01-08] MEDS: BELLADONNA ALK/PHENOB ELIX 10 ML, MAG HYDROX/ALUMINUM HYD/SIMETH 30 ML, LIDOCAINE HCL 2... PO (20:34)
[2022-01-08] MEDS: ACETAMINOPHEN 325 MG TABLET 650 MG PO (20:57)
[2022-01-09] VITALS (21 sets, daily range): BP systolic 111–157; BP diastolic 59–89; PULSE 50–67; RESP 16–22; TEMP 36.3–36.7; O2SAT 95–100
--- NOTE | 2022-01-09 | ECHO_ITS ---
Patient Info Name: Daniela Sanches Age: 56 years : 1965 Gender: Female Ht: 64 in Wt: 176 lbs BSA: 1.92 m2 HR: 57 bpm BP: 152 / 89 mmHg Heart Rhythm: Sinus Rhythm Technical Quality: Good Exam Date: 01/09/2022 9:52 AM Exam Location: [facility] Pulmonary Patient Status: Inpatient Admit Date: 01/08/2022 Staff Ordering Physician: Aziza Lang Braid Cutter: Lupis Neely RDCS Attending Provider: Maribell Mayberry MD Referring Physician: Precious NANCE; Exam Type: CA echo doppler color flow Study Info Indications R07.9 - Chest pain, unspecified Complete two-dimensional, color flow and Doppler transthoracic echocardiogram is performed. Strain analysis performed. Summary 1. Complete two-dimensional, color flow and Doppler transthoracic echocardiogram is performed. 2. Main pulmonary artery dimension is at the dilated. 3. Left ventricular systolic function is mildly reduced, estimated at 40-45%. 4. There is severely increased left ventricular wall thickness. 5. The left ventricular diastolic function is grade II diastolic dysfunction. 6. Global longitudinal strain is abnormal at -7 %. 7. The inferior wall, basal inferolateral wall, and mid inferolateral wall are hypokinetic. 8. Left atrial chamber dimension is moderately enlarged. 9. Right atrial chamber dimension is mildly enlarged. 10. There is mild aortic valve regurgitation. 11. There is mild mitral valve regurgitation. 12. There is mild tricuspid valve regurgitation. 13. Moderate pulmonary hypertension, estimated pulmonary arterial systolic pressure is 54 mmHg. 14. There is mild pulmonic regurgitation. 15. Strain analysis performed. Left Ventricle Left ventricular chamber dimension is mildly enlarged. Left ventricular systolic function is mildly reduced, estimated at 40-45%. There is severely increased left ventricular wall thickness. The left ventricular diastolic function is grade II diastolic dysfunction. Global longitudinal strain is abnormal at -7 %. The inferior wall, basal inferolateral wall, and mid inferolateral wall are hypokinetic. All other ledesma appear normal. Right Ventricle Right ventricular chamber dimension is normal. Right ventricular systolic function is normal. Left Atria Left atrial chamber dimension is moderately enlarged. Right Atria Right atrial chamber dimension is mildly enlarged. Atrial Septum Intact interatrial septum visualized by color flow imaging. Aortic Valve The aortic valve is trileaflet. There is mild aortic valve sclerosis. There is no aortic valve stenosis. There is mild aortic valve regurgitation. Pulmonic Valve The pulmonic valve is normal. There is no pulmonic valve stenosis. There is mild pulmonic regurgitation. Mitral Valve The mitral valve has thickened leaflets and calcified annulus. There is no mitral valve stenosis. There is mild mitral valve regurgitation. Tricuspid Valve The tricuspid valve leaflets are normal. There is no significant tricuspid valve stenosis. There is mild tricuspid valve regurgitation. Moderate pulmonary hypertension, estimated pulmonary arterial systolic pressure is 54 mmHg. Pulmonary Arteries Main pulmonary artery dimension is at the dilated. Pericardium/Pleural The pericardium appears normal. There is no pericardial effusion. Inferior Vena Cava Dilated inferior vena cava with <50% collapse upon inspiration consistent with elevated right atrial pressure, 15 mmHg. Aorta
[2022-01-09] MEDS: NITROGLYCERIN OINTMENT 1 INCH DOSE TRANSDERM ×3 (00:14→17:25)
[2022-01-09] MEDS: ACETAMINOPHEN 325 MG TABLET 650 MG PO ×3 (02:47→21:54)
[2022-01-09 05:33] LABS: Basophils Absolute Auto 0.1 K/mm3 (0.0-0.1); Basophils Percent Auto 0.7 % (0.2-1.2); Eosinophils Percent Auto 0.3 % (0-4.4); Hematocrit 38.9 % (37.0-47.0); Hemoglobin 11.4 g/dL (12.0-15.0); Immature Granulocyte Absolute 0.04 K/mm3 (0.00-0.031); Immature Granulocyte Percent A 0.4 % (0-0.5); Immature Platelet Fraction Pct 11.8 % (0.9-11.2); Lymphocytes Absolute Auto 1.34 K/mm3 (0.9-3.2); Lymphocytes Percent Auto 12.7 % (18.3-44.2); Mean Corpuscular HGB Conc 29.3 g/dl (32-36); Mean Corpuscular Hemoglobin 25.2 pg (26-34); Mean Corpuscular Volume 86.1 fl (80-100); Mean Platelet Volume 12.4 fl (7.4-10.4); Monocytes Percent Auto 9.2 % (2.6-8.5); Neutrophils Absolute Auto 8.1 K/mm3 (1.3-6.7); Neutrophils Percent Auto 76.7 % (45.5-73.1); Platelet Count Result 215 k/mm3 (150-375); Red Blood Count 4.52 M/mm3 (4.2-5.4); Red Cell Distribution Width 19.9 % (11.5-14.5); White Blood Count 10.6 K/mm3 (4.5-10.0)
[2022-01-09 05:49] LABS: Alanine Aminotransferase 36 U/L (4-35); Albumin Level 3.6 g/dL (3.5-5.1); Alkaline Phosphatase 100 U/L (38-126); Anion Gap 7 mmol/L (8-16); Aspartate Amino Transferase 111 U/L (14-36); Bilirubin,Total 0.5 mg/dL (0.2-1.3); Blood Urea Nitrogen 34 mg/dL (7-17); Calcium 8.3 mg/dL (8.4-10.2); Carbon Dioxide 29 mmol/L (22-30); Chloride 97 mmol/L (98-107); Estimated CRCL calculation 33 ml/min; Estimated Glomerular Filt Rate 31; Glucose 134 mg/dL (65-110); Magnesium 1.9 mg/dL (1.6-2.3); Potassium 4.1 mmol/L (3.4-5.0); Sodium 133 mmol/L (137-145)
[2022-01-09 06:04] LABS: Hypochromasia 1+ (NORMAL); Platelet Estimate Adequate (Adequate)
[2022-01-09 06:05] LABS: Poikilocytosis 1+ (NORMAL)
[2022-01-09] MEDS: UMECLIDINIUM BROMIDE 62.5 MCG ELLIPTA 1 PUFF INHALATION (07:44)
--- NOTE | 2022-01-09 08:29 | PM.PNCARD ---
Progress Note: A&P Assessment and Plan (1) Non-STEMI (non-ST elevated myocardial infarction): Code(s): I21.4 - Non-ST elevation (NSTEMI) myocardial infarction Status: Acute Assessment and Plan: Likely related to hypertensive crisis. Unlikely from acute plaque rupture but acute plaque rupture is not completely excluded to this point. Still having chest pain this morning despite having better BP control Repeat EKG now Stat echo aspirin 81 mg p.o. daily atorvastatin 20 mg p.o. daily. She will need a LHC today. Will start NS now to be continued until cath. She understands that she is at risk for worsening kidney function with administration of more IV dye during cath. (2) Hypertensive heart disease: Qualifiers: Heart failure presence: with heart failure Heart failure type: unspecified Qualified Code(s): I11.0 - Hypertensive heart disease with heart failure Code(s): I11.9 - Hypertensive heart disease without heart failure Status: Acute Assessment and Plan: Losartan 25 mg p.o. daily to be started as well as carvedilol 3.125 mg p.o. b.i.d.. Patient was also on amlodipine previously and will start her on amlodipine 10 mg daily. (3) Tobacco abuse: Code(s): Z72.0 - Tobacco use Status: Acute Assessment and Plan: Tobacco abuse counseled performed (4) Hypertensive emergency: Code(s): I16.1 - Hypertensive emergency Status: Acute Assessment and Plan: Markedly elevated at presentation secondary to medication noncompliance as her medications ran out she did not have been refilled. BP is better controlled today. Continue losartan, carvedilol, amlodipine. Nitroglycerin paste 1 in topically for now. (5) Non-compliant patient: Code(s): Z91.19 - Patient's noncompliance with other medical treatment and regimen Status: Acute Assessment and Plan: Encouraged better compliance and follow-up with healthcare providers. (6) Pulmonary nodule: Code(s): R91.1 - Solitary pulmonary nodule Status: Acute Assessment and Plan: Pulmonary consulted and recommended follow up chest CT in 3 months to follow (7) COPD (chronic obstructive pulmonary disease): Code(s): J44.9 - Chronic obstructive pulmonary disease, unspecified Status: Acute Assessment and Plan: Outpatient PFT's (8) Abnormal vaginal bleeding in postmenopausal patient: Code(s): N95.0 - Postmenopausal bleeding Status: Acute Assessment and Plan: TOURIST INFORMATION OFFICER c/s placed. Subjective Date/time seen: 01/09/22 08:29 Cardiology follow up for NSTEMI She's still having some chest pain this morning. Also reports experiencing some vaginal bleeding overnight. Review of Systems Review of Systems: All systems reviewed & are unremarkable except as noted in HPI and below Constitutional: Constitutional: Denies excessive sweating, Denies headache(s) and Denies weakness Eyes: Eyes: Denies blurry vision ENT: Reports Normal hearing present, Denies headache(s) and Denies neck pain Cardiovascular: Cardiovascular: Reports chest pain, Denies leg edema, Reports dyspnea and Reports dyspnea on exertion Respiratory: Respiratory: Reports dyspnea and Reports dyspnea on exertion Gastrointestinal: Gastrointestinal: Denies abdominal pain and Reports nausea Genitourinary: Genitourinary: Denies hematuria and Denies flank pain Musculoskeletal: Musculoskeletal: Denies back pain and Denies neck pain Integumentary/Breasts: Skin/Breast: Denies dry skin and Denies unusual bruising Neurologic: Reports Normal hearing present, Denies headache(s) and Denies weakness Psychiatric: Psychiatric: Denies anxiety Endocrine: Endocrine: Denies excessive sweating Hematologic/Lymphatic: Hematologic/Lymphatic: Denies easy bleeding Allergic/Immunologic: Allergic/Immunologic: Denies GI upset with certain foods Exam Narrative: Patient awake alert. Appears stat
--- NOTE | 2022-01-09 09:10 | ECG_ITS ---
Measurements Intervals [place] Rate: 55 P: 78 [place]: 139 QRS: 102 QRSD: 102 T: 180 QT: 494 QTc: 476 Interpretive Statements SINUS BRADYCARDIA RIGHT AXIS DEVIATION POSSIBLE LEFT ATRIAL ENLARGEMENT LEFT VENTRICULAR HYPERTROPHY WITH ST-T CHANGE ST-T WAVE ABNORMALITY IN ANTEROLAT/INF LEADS- CONSIDER ISCHEMIA BASELINE WANDER- V5 ABNORMAL ECG Electronically Signed On 01-09-2022 12:27:10 CDT by Thom Jay D.O.
[2022-01-09] MEDS: SODIUM CHLORIDE 0.9% IV 1,000 ML 100 ML IV CONT (09:31)
[2022-01-09] MEDS: ASPIRIN 81 MG CHEWABLE TABLET PO (09:33)
[2022-01-09] MEDS: ATORVASTATIN 20 MG TABLET PO (09:33)
[2022-01-09] MEDS: amLODIPine BESYLATE 5 MG TABLET 10 MG PO (09:34)
[2022-01-09] MEDS: carvediloL 3.125 MG TABLET PO ×2 (09:36→20:22)
[2022-01-09] MEDS: cloNIDine HCL 0.1 MG TABLET PO ×2 (09:45→21:52)
[2022-01-09] MEDS: MORPHINE SULFATE (*CRX) 2 MG/ML INJ 1 MG IV PUSH (09:50)
--- NOTE | 2022-01-09 12:20 | PM.IMPN ---
Progress Note: A&P Assessment and Plan (1) Non-STEMI (non-ST elevated myocardial infarction): Code(s): I21.4 - Non-ST elevation (NSTEMI) myocardial infarction Status: Acute (2) COPD (chronic obstructive pulmonary disease): Code(s): J44.9 - Chronic obstructive pulmonary disease, unspecified Status: Acute (3) Non-compliant patient: Code(s): Z91.19 - Patient's noncompliance with other medical treatment and regimen Status: Acute (4) Hypertensive heart disease: Qualifiers: Heart failure presence: with heart failure Heart failure type: unspecified Qualified Code(s): I11.0 - Hypertensive heart disease with heart failure Code(s): I11.9 - Hypertensive heart disease without heart failure Status: Acute (5) Renal failure: Code(s): N19 - Unspecified kidney failure Status: Acute (6) Tobacco abuse: Code(s): Z72.0 - Tobacco use Status: Acute (7) Hypertensive heart disease with heart failure and stage 3 chronic kidney disease: Code(s): I13.0 - Hypertensive heart and chronic kidney disease with heart failure and stage 1 through stage 4 chronic kidney disease, or unspecified chronic kidney disease; N18.30 - Chronic kidney disease, stage 3 unspecified Status: Acute (8) Abnormal vaginal bleeding in postmenopausal patient: Code(s): N95.0 - Postmenopausal bleeding Status: Acute (9) Pulmonary nodule: Code(s): R91.1 - Solitary pulmonary nodule Status: Acute Additional Plan 01/08/22 Blood pressures are markedly elevated due to noncompliance; she ran out of medications and did not have them refilled. Resume losartan 25 mg daily, carvedilol 3.125 mg daily, amlodipine 10 mg daily. Related to severe hypertension and pulmonary edema/small right pleural effusion on imaging. Lasix 40 mg IV x1 given in the ER. Repeat this evening and tomorrow a.m. Monitor response and I/O. May very well be related to severely elevated blood pressures; catheterization in 2010 showed very mild CAD. Continue to monitor and IMU; trend troponins. Cardiology consulted, recommend starting aspirin 81 mg daily atorvastatin 20 mg daily. Long discussion about compliance and complications she can expect should her conditions continue to go untreated. Right upper lobe nodule appeared a bit larger on today's CT scan. Infection seems less likely at this juncture. Pulmonology consulted. Smoking cessation is imperative and was discussed. Check fasting glucose and A1c. No acute issues; not on inhalers at home. Baseline creatinine seems to range between 0.9 and 1.20; stable. She has a difficult time describing what she is feeling, at times reporting severe burning at other times she calls it tightness. GI cocktail ordered. 01/09/22 elevated trop 11.9 -> skilled labor no PCI perferomed due to anatomy and location of lesion CT w lung nodules will need follow up in 3 months SOB COPD active TOb encourage to quit pelvic US for post menopausal bleeding poorly compliant pt spent 4 days in ICU w first TX 2010 but did not follow up Subjective Date/time seen: 01/09/22 12:20 doing ok still complains of R sided chest burning pain and some SOB Exam Narrative: General: Well-developed female sitting up in bed in moderate discomfort. Weight: 79.5 kg. BMI: 30.1. HEENT: PERRL, EOMI. Sclerae anicteric. Oral mucosa moist. Neck: Supple. No jugular venous distension. Respiratory: Respirations are nonlabored. Lung sounds are diminished but are otherwise clear to auscultation. Cardiovascular: Regular rate and rhythm with S1-S2. No murmur, rub, or gallop. Gastrointestinal: Abdomen is soft and nondistended with positive bowel sounds. She is a bit tender to palpation epigastric region. No guarding or rebound tenderness. Skin: Warm and dry. No rash or lesions on limited exam. Extremities: No cyanosis, clubbing, or edema. Radial and pedal pulses intact. Neurological: Alert. Cranial nerves 2
--- NOTE | 2022-01-09 12:52 | PM.IMHP ---
H&P: HPI History of Present Illness Date/Time: GOLF TECHNICIAN Consultation note 01/09/22 12:30 56 y/o female here with chest pain. She was in the cardiac labour market economist when I came by her hospital room to see her. Information in this H&P was gleaned from the medical record and from speaking with the patient's nurse. Apparently, she has not seen a fiberglass boat maker in many years. She is postmenopausal and had not experienced any vaginal bleeding for years. Yesterday she had a small amount of vaginal bleeding. No pelvic pain. Chief Complaint: Vaginal bleeding Review of Systems Review of Systems: All systems reviewed & are unremarkable except as noted in HPI and below PMFSH Past Medical History Medical History Abnormal echocardiogram Echocardiogram in October 29 showed low normal LV systolic function with an EF estimated 50 to 55%, severely increased LV wall thickness, grade 2 diastolic dysfunction, speckled/hyperechoic pattern of myocardium, consider infiltrative cardiomyopathy, mild aortic/mitral,/tricuspid regurgitation, and mild pulmonary hypertension with a PASP of 40 mmHg. Anxiety Bipolar disorder Chronic obstructive pulmonary disease Coronary artery disease Angiographically very mild coronary artery disease on cardiac catheterization in September 2010. Depression Hypertension Hypertensive heart disease Pulmonary nodule Tobacco use Surgical History Surgical History History of cardiac catheterization (09/09/10) Angiographically very mild coronary artery disease on catheterization per Dr. Perales. History of tooth extraction Full mouth extraction History of tubal ligation Family History Family History Father COPD (chronic obstructive pulmonary disease) Acute myocardial infarction Mother Acute myocardial infarction Social History Social History Social History: Surrogate decision maker: Willie Varela, judi. Code status: Full code. Smoking packs per day: 0.5 Smoking cigarettes per day: 10.0 Years smoked: 40 Smoking pack-years: 20.00 Smoking status: Current every day smoker Tobacco type: cigarettes Alcohol intake: never Substance use: current Substance use type: marijuana Other substance usage details: Occasional marijuana use. Spiritual care concerns: No Meds Home Medications and Allergies Home Medications Medication Instructions Recorded Confirmed Type amlodipine [Norvasc] 10 mg PO QAM #30 tablet 11/02/21 01/08/22 Rx aspirin 81 mg PO QAM #30 tablet 11/02/21 01/08/22 Rx atorvastatin 20 mg PO DAILY #30 tablet 11/02/21 01/08/22 Rx carvedilol [Coreg] 3.125 mg PO Q12HR #60 tablet 11/02/21 01/08/22 Rx clonidine HCl 0.1 mg PO TID #90 tablet 11/02/21 01/08/22 Rx losartan [Cozaar] 50 mg PO DAILY #30 tablet 11/02/21 01/08/22 Rx Allergies Allergy/AdvReac Type Severity Reaction Status Date / Time No Known Drug Allergies Allergy Other Verified 01/08/22 10:19 Vital Signs Vital Signs - 24 hr 01/08/22 13:35 01/08/22 14:00 01/08/22 14:22 Temperature Pulse Rate 65 58 L 61 Respiratory Rate Blood Pressure Pulse Oximetry 01/08/22 16:00 01/08/22 16:29 01/08/22 18:00 Temperature 36.2 C L Pulse Rate 60 56 L 62 Respiratory Rate 20 Blood Pressure 176/110 H Pulse Oximetry 94 99 01/08/22 19:59 01/08/22 20:00 01/08/22 20:44 Temperature 36.7 C Pulse Rate 60 61 60 Respiratory Rate 18 Blood Pressure 148/85 H Pulse Oximetry 97 95 01/08/22 22:00 01/08/22 23:23 01/09/22 00:00 Temperature 36.6 C Pulse Rate 69 59 L 61 Respiratory Rate 18 Blood Pressure 117/58 L Pulse Oximetry 96 99 01/09/22 02:00 01/09/22 04:00 01/09/22 06:00 Temperature 36.7 C Pulse Rate 56 L 57 L 57 L Respiratory Rate 20 Blood Pressure 111/63 Pulse Oximetry 97 01/09/22 07:46 01/09/22 08
[2022-01-09 13:06] LABS: Free T4 Free Thyroxine 1.38 ng/mL (0.78-2.19)
--- NOTE | 2022-01-09 14:16 | PC.NURSE ---
1030- to cardiac laboratory chemist for procedure accompanied by FLOOR CASHIER RN's
--- NOTE | 2022-01-09 14:17 | WPDHPUPDATE1 ---
History and Physical Update Update Date/Time: 01/09/22 14:17 History and Physical has been reviewed, including an updated exam of the patient. There are NO changes in the patient's condition. Risks, benefits, and alternatives have been discussed and questions answered. Patient agrees to proceed with procedure.
--- NOTE | 2022-01-09 14:17 | WPDMODSED ---
Moderate Sedation Note-Pt Data Patient Data Allergies Allergy/AdvReac Type Severity Reaction Status Date / Time No Known Drug Allergies Allergy Other Verified 01/08/22 10:19 Home Medications Medication Instructions Recorded Confirmed Type amlodipine [Norvasc] 10 mg PO QAM #30 tablet 11/02/21 01/08/22 Rx aspirin 81 mg PO QAM #30 tablet 11/02/21 01/08/22 Rx atorvastatin 20 mg PO DAILY #30 tablet 11/02/21 01/08/22 Rx carvedilol [Coreg] 3.125 mg PO Q12HR #60 tablet 11/02/21 01/08/22 Rx clonidine HCl 0.1 mg PO TID #90 tablet 11/02/21 01/08/22 Rx losartan [Cozaar] 50 mg PO DAILY #30 tablet 11/02/21 01/08/22 Rx Current Medications: Active Medications Acetaminophen (Acetaminophen 325 Mg Tablet) 650 mg PO Q4H PRN PRN Reason: Mild Pain (1-3) or Fever Last Admin: 01/09/22 02:47 Dose: 650 mg Documented by: Albuterol (Albuterol Sulfate (*Sp) Aerosol 1 Puff) 2 puff INHALATION Q6HRT PRN PRN Reason: Shortness Of Breath Amlodipine Besylate (Amlodipine Besylate 5 Mg Tablet) 10 mg PO QAM [facility] Last Admin: 01/09/22 09:34 Dose: 10 mg Documented by: Aspirin (Aspirin 81 Mg Chewable Tablet) 81 mg PO DAILY@0800 [facility] Last Admin: 01/09/22 09:33 Dose: 81 mg Documented by: Atorvastatin Calcium (Atorvastatin 20 Mg Tablet) 20 mg PO DAILY [facility] Last Admin: 01/09/22 09:33 Dose: 20 mg Documented by: Carvedilol (Carvedilol 3.125 Mg Tablet) 3.125 mg PO Q12HR [facility] Last Admin: 01/09/22 09:36 Dose: 3.125 mg Documented by: Clonidine HCl (Clonidine Hcl 0.1 Mg Tablet) 0.1 mg PO Q12HR [facility] Last Admin: 01/09/22 09:45 Dose: 0.1 mg Documented by: Sodium Chloride (Normal Saline Iv) 1,000 mls @ 100 mls/hr IV CONT .Q10H [facility] Last Admin: 01/09/22 09:31 Dose: 100 mls/hr Documented by: Losartan Potassium (Losartan Potassium 25 Mg Tablet) 25 mg PO DAILY [facility] Last Admin: 01/08/22 14:57 Dose: 25 mg Documented by: Nitroglycerin (Nitroglycerin Ointment 1 Inch Dose) 1 inch TRANSDERM Q6HR [facility] Last Admin: 01/09/22 14:09 Dose: Not Given Documented by: Perflutren Lipid Microsphere (Perflutren Lipid Microspheres 1.5 Ml Vial Diluted To 10 Ml Total Volume) 0 ml IV PUSH ONCE PRN; Protocol PRN Reason: adequate visualization Umeclidinium [place] (Umeclidinium [place] 62.5 Mcg Ellipta) 1 puff INHALATION DAILYRT [facility] Last Admin: 01/09/22 07:44 Dose: 1 puff Documented by: Sedation/Anesthesia: No previous sedation/anesthesia problems (including family history). [facility] Past Medical History Medical History Abnormal echocardiogram Echocardiogram in October 29 showed low normal LV systolic function with an EF estimated 50 to 55%, severely increased LV wall thickness, grade 2 diastolic dysfunction, speckled/hyperechoic pattern of myocardium, consider infiltrative cardiomyopathy, mild aortic/mitral,/tricuspid regurgitation, and mild pulmonary hypertension with a PASP of 40 mmHg. Anxiety Bipolar disorder Chronic obstructive pulmonary disease Coronary artery disease Angiographically very mild coronary artery disease on cardiac catheterization in September 2010. Depression Hypertension Hypertensive heart disease Pulmonary nodule Tobacco use Surgical History Surgical History History of cardiac catheterization (09/09/10) Angiographically very mild coronary artery disease on catheterization per Dr. Perales. History of tooth extraction Full mouth extraction History of tubal ligation Family History Family History Father COPD (chronic obstructive pulmonary disease) Acute myocardial infarction Mother Acute myocardial infarction Social History Social History Social History: Surrogate decision maker: Willie Varela, judi. Code status: Full code. Smoking packs per day: 0.5 Smoking cigarettes per day: 10.0 Years smoked: 40 Smoking pack-years: 20.00 Smoking statu
--- NOTE | 2022-01-09 14:22 | WPDCARDPROC ---
Cardiac Cath Procedure Note Date of procedure:: 01/09/22 Performing physician:: Joseph Krueger MD Date of service 01/09/2022 Indication:: NSTEMI Brief clinical history:: this is 56-year-old female with past history of hypertension who apparently was here in the hospital in October 2021 with elevated blood pressure and blood pressure medicine were adjusted. She comes here to the hospital again with chest pain, shortness of breath, paroxysmal nocturnal dyspnea and her blood pressure is severely elevated. she underwent CT scan to rule out pulmonary embolism and was negative for PE. It showed enlarged lymphadenopathy.Blood pressure But better controlled however patient continued to have chest pain shortness of breath and EKG shows ischemic changes. Echocardiogram shows inferior and inferolateral hypokinesis. Interestingly that her creatinine has increased from 1-1.7 today. Also patient reports today that she is having vaginal bleeding. Troponins are elevated and therefore I was asked to do a cardiac catheterization on this patient. Procedure Procedure performed:: 1-Moderate sedation that started at 12:55 p.m.and ended at 2:04 p.m. with total duration 69 minutes using 3mg of Versed and 75mcg fentanyl. The registered nurse was kelsey martin and farhan anderson. 2-Selective left and right coronary angiogram. 3-Left heart catheterization with measurement of LVEDP and measurement of gradient across aortic valve. Sedation/Medication given:: Moderate sedation. Access site:: attempted the right and left femoral arteries without success. Eventually accessed the right radial artery. Estimated blood loss:: 10cc Procedure note:: After informed consent patient was brought in to medical laboratory technical officer with the was draped and prepped in usual manner. Moderate sedation was given and the right groin was infiltrated using 1% lidocaine. Attempted to insert sheath in the right femoral artery without success because the pulse is not felt. Attempted accessing the left femoral artery and also without success because there is absent pulses. Eventually 6 Luxembourger sheath was obtained using modified Seldinger technique in the right radial artery. Selective left coronary angiogram was done using JL3.5 catheter with the tip of the catheter placed in the left main coronary artery. Selective right coronary angiogram was done using JR4 catheter with the tip of the catheter placed to the right coronary artery. After that 5 Luxembourger [id number] was advanced across the aortic valve into the left ventricle with measurement of LVEDP and measurement of gradient across aortic valve. subsequently we tried to intervene on the left circumflex artery and therefore we took 6 Luxembourger guide catheter CLS 3 engaged in the left main and then we took Mold Tooling Technician 150 wire and tried to go to distal left circumflex artery without success due to sharp angle in proximal left circumflex artery. the wire was reshaped several times and despite reshaping we could not pass it. At that time attempts were aborted Findings:: 1- left coronary artery is a large artery that divides into large LAD, large circumflex artery. Left main is Has minimal irregularities. 2- left anterior descending artery is a large artery that runs and wraps around the apex. Has diffuse irregularities. 3- leftcircumflex artery is a large artery. right after it takes off from the left main it gives rise to a large OM branch that has ostial 40%. The left circumflex artery after the OM is acutely occluded. Proximally. 4- right coronary artery is large artery and dominant. proximal 90% and distal there is diffuse 80%. Right PDA ostial lesion 90%. Small marginal branch in the mid segment ostial lesion 90% 5- LVEDP was 32 mm Hgand no gradient across aortic valve. 6- opening arterial pressure was 140/80 and closing pressure was 129/68 Conclusion:: - totally occluded proximal left circumflex artery after the takeoff of a large OM1 branch with inability to pass wire due
--- NOTE | 2022-01-09 18:42 | PC.NURSE ---
2753- returned to room- post cardiac cath- R radial site TR Band - armboard in place- dressing to R radial site intact- no bleeding- +2 radial pulse
[2022-01-10] VITALS (19 sets, daily range): BP systolic 121–154; BP diastolic 61–89; PULSE 51–73; RESP 15–20; TEMP 36.2–36.6; O2SAT 96–100
[2022-01-10] MEDS: NITROGLYCERIN OINTMENT 1 INCH DOSE TRANSDERM ×3 (00:24→11:56)
[2022-01-10 05:13] LABS: Anion Gap 6 mmol/L (8-16); Blood Urea Nitrogen 32 mg/dL (7-17); Calcium 7.8 mg/dL (8.4-10.2); Carbon Dioxide 29 mmol/L (22-30); Chloride 94 mmol/L (98-107); Estimated CRCL calculation 43 ml/min; Estimated Glomerular Filt Rate 42; Glucose 165 mg/dL (65-110); Potassium 3.7 mmol/L (3.4-5.0); Sodium 129 mmol/L (137-145)
[2022-01-10] MEDS: LOSARTAN POTASSIUM 25 MG TABLET PO (08:18)
[2022-01-10] MEDS: cloNIDine HCL 0.1 MG TABLET PO (08:18)
[2022-01-10] MEDS: ATORVASTATIN 20 MG TABLET PO (08:18)
[2022-01-10] MEDS: carvediloL 3.125 MG TABLET PO (08:18)
[2022-01-10] MEDS: amLODIPine BESYLATE 5 MG TABLET 10 MG PO (08:18)
[2022-01-10] MEDS: ASPIRIN 81 MG CHEWABLE TABLET PO (08:19)
[2022-01-10] MEDS: UMECLIDINIUM BROMIDE 62.5 MCG ELLIPTA 1 PUFF INHALATION (09:39)
--- NOTE | 2022-01-10 10:26 | PM.IMPN ---
Progress Note: A&P Assessment and Plan (1) Non-STEMI (non-ST elevated myocardial infarction): Code(s): I21.4 - Non-ST elevation (NSTEMI) myocardial infarction Status: Acute (2) COPD (chronic obstructive pulmonary disease): Code(s): J44.9 - Chronic obstructive pulmonary disease, unspecified Status: Acute (3) Non-compliant patient: Code(s): Z91.19 - Patient's noncompliance with other medical treatment and regimen Status: Acute (4) Hypertensive heart disease: Qualifiers: Heart failure presence: with heart failure Heart failure type: unspecified Qualified Code(s): I11.0 - Hypertensive heart disease with heart failure Code(s): I11.9 - Hypertensive heart disease without heart failure Status: Acute (5) Renal failure: Code(s): N19 - Unspecified kidney failure Status: Acute (6) Tobacco abuse: Code(s): Z72.0 - Tobacco use Status: Acute (7) Hypertensive heart disease with heart failure and stage 3 chronic kidney disease: Code(s): I13.0 - Hypertensive heart and chronic kidney disease with heart failure and stage 1 through stage 4 chronic kidney disease, or unspecified chronic kidney disease; N18.30 - Chronic kidney disease, stage 3 unspecified Status: Acute (8) Abnormal vaginal bleeding in postmenopausal patient: Code(s): N95.0 - Postmenopausal bleeding Status: Acute (9) Pulmonary nodule: Code(s): R91.1 - Solitary pulmonary nodule Status: Acute Additional Plan 01/08/22 Blood pressures are markedly elevated due to noncompliance; she ran out of medications and did not have them refilled. Resume losartan 25 mg daily, carvedilol 3.125 mg daily, amlodipine 10 mg daily. Related to severe hypertension and pulmonary edema/small right pleural effusion on imaging. Lasix 40 mg IV x1 given in the ER. Repeat this evening and tomorrow a.m. Monitor response and I/O. May very well be related to severely elevated blood pressures; catheterization in 2010 showed very mild CAD. Continue to monitor and IMU; trend troponins. Cardiology consulted, recommend starting aspirin 81 mg daily atorvastatin 20 mg daily. Long discussion about compliance and complications she can expect should her conditions continue to go untreated. Right upper lobe nodule appeared a bit larger on today's CT scan. Infection seems less likely at this juncture. Pulmonology consulted. Smoking cessation is imperative and was discussed. Check fasting glucose and A1c. No acute issues; not on inhalers at home. Baseline creatinine seems to range between 0.9 and 1.20; stable. She has a difficult time describing what she is feeling, at times reporting severe burning at other times she calls it tightness. GI cocktail ordered. 01/09/22 elevated trop 11.9 -> labor service representative no PCI perferomed due to anatomy and location of lesion CT w lung nodules will need follow up in 3 months SOB COPD active TOb encourage to quit pelvic US for post menopausal bleeding poorly compliant pt spent 4 days in ICU w first PR 2010 but did not follow up 01/10/22 pending US, I have called to US dept to confirm they will be coming to perform study today NSTEMI w conservative care -> cardio ok w dc of nitro pt has been placed on Imdur and other medical therapies will need PCI to RCA when able to have DAPT for 1 yr radio program director following recs appreciated Subjective Date/time seen: 01/10/22 10:26 pending US, I have called to US dept to confirm they will be coming to perform study today pt has no new complaints at the time of my eval upset because she feels like we should be doing more Call received from RN to assess need for nitro paste ordered by Cardio because believed to be causing WARNER Cardio called to review nitro paste order and request to stop Exam Narrative: General: NAD AAOx 3 HEENT: EOMI. Sclerae anicteric. Oral mucosa moist. Neck: Supple. No jugular venous distension. Respiratory: Respirations are no
--- NOTE | 2022-01-10 11:59 | PC.NURSE ---
[facility] flyer was given to patient.
[2022-01-10] MEDS: ACETAMINOPHEN 325 MG TABLET 650 MG PO ×2 (12:01→17:07)
--- NOTE | 2022-01-10 13:32 | PM.PNCARD ---
Progress Note: A&P Assessment and Plan (1) Non-STEMI (non-ST elevated myocardial infarction): Code(s): I21.4 - Non-ST elevation (NSTEMI) myocardial infarction Status: Acute Assessment and Plan: Likely related to hypertensive crisis. Unlikely from acute plaque rupture but acute plaque rupture is not completely excluded to this point. Underwent coronary angiogram yesterday. She has an occluded proximal left circumflex artery after the takeoff of a large OM1 branch. She also has high-grade stenosis proximal and distal RCA as well as ostial right PDA. Unable to intervene on circumflex lesion due to the anatomy of the vessel RCA lesions to be addressed when kidney function improves and after investigation of her vaginal bleeding Aspirin 81 mg p.o. daily Rosuvastatin 20 mg p.o. daily. Shift coreg to metoprolol Start Imdur Continue nitro paste Start plavix when INDEPENDENT AGENT MUSIC EDUCATION w/u is complete (2) Hypertensive heart disease: Qualifiers: Heart failure presence: with heart failure Heart failure type: unspecified Qualified Code(s): I11.0 - Hypertensive heart disease with heart failure Code(s): I11.9 - Hypertensive heart disease without heart failure Status: Acute Assessment and Plan: Metoprolol, imdur, amlodipine as above. Clonidine has been discontinued. (3) Tobacco abuse: Code(s): Z72.0 - Tobacco use Status: Acute Assessment and Plan: Tobacco abuse counseled performed (4) Hypertensive emergency: Code(s): I16.1 - Hypertensive emergency Status: Acute Assessment and Plan: Markedly elevated at presentation secondary to medication noncompliance as her medications ran out she did not have been refilled. BP is better controlled today. Continue losartan, metoprolol, amlodipine, losartan. Nitroglycerin paste 1 in topically for now. (5) Non-compliant patient: Code(s): Z91.19 - Patient's noncompliance with other medical treatment and regimen Status: Acute Assessment and Plan: Encouraged better compliance and follow-up with healthcare providers. (6) Pulmonary nodule: Code(s): R91.1 - Solitary pulmonary nodule Status: Acute Assessment and Plan: Pulmonary consulted and recommended follow up chest CT in 3 months to follow (7) COPD (chronic obstructive pulmonary disease): Code(s): J44.9 - Chronic obstructive pulmonary disease, unspecified Status: Acute Assessment and Plan: Outpatient PFT's (8) Abnormal vaginal bleeding in postmenopausal patient: Code(s): N95.0 - Postmenopausal bleeding Status: Acute Assessment and Plan: INDEPENDENT AGENT MUSIC EDUCATION c/s placed. Subjective Date/time seen: 01/10/22 13:32 Cardiology follow up for NSTEMI Not feeling well today. She is complaining of shortness of breath and right sided chest pain that is worse with inspiration. Review of Systems Review of Systems: All systems reviewed & are unremarkable except as noted in HPI and below Constitutional: Constitutional: Denies excessive sweating, Denies headache(s) and Denies weakness Eyes: Eyes: Denies blurry vision ENT: Reports Normal hearing present, Denies headache(s) and Denies neck pain Cardiovascular: Cardiovascular: Reports chest pain, Denies leg edema, Reports dyspnea and Reports dyspnea on exertion Respiratory: Respiratory: Reports dyspnea and Reports dyspnea on exertion Gastrointestinal: Gastrointestinal: Denies abdominal pain and Reports nausea Genitourinary: Genitourinary: Denies hematuria and Denies flank pain Musculoskeletal: Musculoskeletal: Denies back pain and Denies neck pain Integumentary/Breasts: Skin/Breast: Denies dry skin and Denies unusual bruising Neurologic: Reports Normal hearing present, Denies headache(s) and Denies weakness Psychiatric: Psychiatric: Denies anxiety Endocrine: Endocrine: Denies excessive sweating Hematologic/Lymphatic: Hematologic/Lymphatic: Denies easy b
[2022-01-10] MEDS: FUROSEMIDE INJ 40 MG/4 ML VIAL 20 MG IV PUSH (15:35)
--- NOTE | 2022-01-10 16:53 | PM.IMHP ---
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 She had an episode of small vaginal bleeding two days ago, and no further bleeding since. She had cardiac catheterization yesterday. She had a pelvic ultrasound today which shows an endometrial complex measuring 10 mm in thickness, and a likely small myoma. She has not seen a hide dyer in years. Chief Complaint: Postmenopausal bleeding Review of Systems Review of Systems: All systems reviewed & are unremarkable except as noted in HPI and below PMFSH Past Medical History Medical History Abnormal echocardiogram Echocardiogram in October 29 showed low normal LV systolic function with an EF estimated 50 to 55%, severely increased LV wall thickness, grade 2 diastolic dysfunction, speckled/hyperechoic pattern of myocardium, consider infiltrative cardiomyopathy, mild aortic/mitral,/tricuspid regurgitation, and mild pulmonary hypertension with a PASP of 40 mmHg. Anxiety Bipolar disorder Chronic obstructive pulmonary disease Coronary artery disease Angiographically very mild coronary artery disease on cardiac catheterization in September 2010. Depression Hypertension Hypertensive heart disease Pulmonary nodule Tobacco use Surgical History Surgical History History of cardiac catheterization (09/09/10) Angiographically very mild coronary artery disease on catheterization per Dr. Perales. History of tooth extraction Full mouth extraction History of tubal ligation Family History Family History Father COPD (chronic obstructive pulmonary disease) Acute myocardial infarction Mother Acute myocardial infarction Social History Social History Social History: Surrogate decision maker: Willie Varela, judi. Code status: Full code. Smoking packs per day: 0.5 Smoking cigarettes per day: 10.0 Years smoked: 40 Smoking pack-years: 20.00 Smoking status: Current every day smoker Tobacco type: cigarettes Alcohol intake: never Substance use: current Substance use type: marijuana Other substance usage details: Occasional marijuana use. Spiritual care concerns: No Meds Home Medications and Allergies Home Medications Medication Instructions Recorded Confirmed Type amlodipine [Norvasc] 10 mg PO QAM #30 tablet 11/02/21 01/08/22 Rx aspirin 81 mg PO QAM #30 tablet 11/02/21 01/08/22 Rx atorvastatin 20 mg PO DAILY #30 tablet 11/02/21 01/08/22 Rx carvedilol [Coreg] 3.125 mg PO Q12HR #60 tablet 11/02/21 01/08/22 Rx clonidine HCl 0.1 mg PO TID #90 tablet 11/02/21 01/08/22 Rx losartan [Cozaar] 50 mg PO DAILY #30 tablet 11/02/21 01/08/22 Rx Allergies Allergy/AdvReac Type Severity Reaction Status Date / Time No Known Drug Allergies Allergy Other Verified 01/08/22 10:19 Vital Signs Vital Signs - 24 hr 01/09/22 17:00 01/09/22 18:00 01/09/22 19:54 Temperature 36.5 C 36.3 C L Pulse Rate 67 56 L 56 L Respiratory Rate 16 16 Blood Pressure 154/89 H 129/59 L Pulse Oximetry 100 99 01/09/22 20:00 01/09/22 20:22 01/09/22 22:00 Temperature Pulse Rate 55 L 56 L 57 L Respiratory Rate Blood Pressure Pulse Oximetry 99 01/10/22 00:00 01/10/22 02:00 01/10/22 04:00 Temperature 36.2 C L 36.5 C Pulse Rate 54 L 56 L 55 L Respiratory Rate 15 18 Blood Pressure 124/70 136/66 Pulse Oximetry 99 99 01/10/22 06:00 01/10/22 08:00 01/10/22 08:18 Temperature 36.6 C Pulse Rate 54 L 52 L 62 Respiratory Rate 20 Blood Pressure 154/89 H Pulse Oximetry 100 01/10/22 09:42 01/10/22 09:45 01/10/22 09:46 Temperature Pulse Rate 54 L Respiratory Rate 20 Blood Pressure Pulse Oximetry 99 99 01/10/22 10:00 01/10/22 12:00 01/10/22 14:00 Temperature
[2022-01-10] MEDS: METOPROLOL TARTRATE 12.5 MG TABLET PO (20:59)
[2022-01-11] VITALS (17 sets, daily range): BP systolic 130–202; BP diastolic 58–86; PULSE 52–61; RESP 15–28; TEMP 36.1–37.2; O2SAT 96–100
--- NOTE | 2022-01-11 08:03 | PM.IMPN ---
Progress Note: A&P Assessment and Plan (1) Non-STEMI (non-ST elevated myocardial infarction): Code(s): I21.4 - Non-ST elevation (NSTEMI) myocardial infarction Status: Acute (2) COPD (chronic obstructive pulmonary disease): Code(s): J44.9 - Chronic obstructive pulmonary disease, unspecified Status: Acute (3) Non-compliant patient: Code(s): Z91.19 - Patient's noncompliance with other medical treatment and regimen Status: Acute (4) Hypertensive heart disease: Qualifiers: Heart failure presence: with heart failure Heart failure type: unspecified Qualified Code(s): I11.0 - Hypertensive heart disease with heart failure Code(s): I11.9 - Hypertensive heart disease without heart failure Status: Acute (5) Renal failure: Code(s): N19 - Unspecified kidney failure Status: Acute (6) Tobacco abuse: Code(s): Z72.0 - Tobacco use Status: Acute (7) Hypertensive heart disease with heart failure and stage 3 chronic kidney disease: Code(s): I13.0 - Hypertensive heart and chronic kidney disease with heart failure and stage 1 through stage 4 chronic kidney disease, or unspecified chronic kidney disease; N18.30 - Chronic kidney disease, stage 3 unspecified Status: Acute (8) Abnormal vaginal bleeding in postmenopausal patient: Code(s): N95.0 - Postmenopausal bleeding Status: Acute (9) Pulmonary nodule: Code(s): R91.1 - Solitary pulmonary nodule Status: Acute (10) Hypertensive urgency: Code(s): I16.0 - Hypertensive urgency Status: Acute Additional Plan 01/08/22 Blood pressures are markedly elevated due to noncompliance; she ran out of medications and did not have them refilled. Resume losartan 25 mg daily, carvedilol 3.125 mg daily, amlodipine 10 mg daily. Related to severe hypertension and pulmonary edema/small right pleural effusion on imaging. Lasix 40 mg IV x1 given in the ER. Repeat this evening and tomorrow a.m. Monitor response and I/O. May very well be related to severely elevated blood pressures; catheterization in 2010 showed very mild CAD. Continue to monitor and IMU; trend troponins. Cardiology consulted, recommend starting aspirin 81 mg daily atorvastatin 20 mg daily. Long discussion about compliance and complications she can expect should her conditions continue to go untreated. Right upper lobe nodule appeared a bit larger on today's CT scan. Infection seems less likely at this juncture. Pulmonology consulted. Smoking cessation is imperative and was discussed. Check fasting glucose and A1c. No acute issues; not on inhalers at home. Baseline creatinine seems to range between 0.9 and 1.20; stable. She has a difficult time describing what she is feeling, at times reporting severe burning at other times she calls it tightness. GI cocktail ordered. 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 Cardiology adjusting meds x new home regimen and BP corrected w am meds pt seen sitting on side of bed taking a bath, she continues to complain of pain burning across shoulders and chest Exam Narrative: Gene
[2022-01-11] MEDS: ROSUVASTATIN 10 MG TABLET 20 MG PO (08:08)
[2022-01-11] MEDS: ISOSORBIDE MONONITRATE 60 MG TAB.ER.24H PO (08:09)
[2022-01-11] MEDS: amLODIPine BESYLATE 5 MG TABLET 10 MG PO (08:09)
[2022-01-11] MEDS: LOSARTAN POTASSIUM 25 MG TABLET PO (08:09)
[2022-01-11] MEDS: METOPROLOL TARTRATE 12.5 MG TABLET PO ×2 (08:09→20:43)
[2022-01-11] MEDS: ASPIRIN 81 MG CHEWABLE TABLET PO (08:09)
[2022-01-11] MEDS: UMECLIDINIUM BROMIDE 62.5 MCG ELLIPTA 1 PUFF INHALATION (09:27)
[2022-01-12] VITALS (19 sets, daily range): BP systolic 132–161; BP diastolic 58–86; PULSE 53–83; RESP 15–24; TEMP 36.1–36.8; O2SAT 93–100
[2022-01-12 07:44] LABS: Triiodothyronine T3 Free 2.1 pg/mL (2.3-4.2)
[2022-01-12] MEDS: UMECLIDINIUM BROMIDE 62.5 MCG ELLIPTA 1 PUFF INHALATION (08:25)
[2022-01-12] MEDS: ROSUVASTATIN 10 MG TABLET 20 MG PO (08:37)
[2022-01-12] MEDS: amLODIPine BESYLATE 5 MG TABLET 10 MG PO (08:38)
[2022-01-12] MEDS: ISOSORBIDE MONONITRATE 60 MG TAB.ER.24H PO (08:38)
[2022-01-12] MEDS: ASPIRIN 81 MG CHEWABLE TABLET PO (08:38)
[2022-01-12] MEDS: METOPROLOL TARTRATE 12.5 MG TABLET PO ×2 (08:38→22:35)
[2022-01-12] MEDS: LOSARTAN POTASSIUM 25 MG TABLET PO (08:38)
--- NOTE | 2022-01-12 09:02 | PM.IMPN ---
Progress Note: A&P Assessment and Plan (1) Non-STEMI (non-ST elevated myocardial infarction): Code(s): I21.4 - Non-ST elevation (NSTEMI) myocardial infarction Status: Acute (2) COPD (chronic obstructive pulmonary disease): Code(s): J44.9 - Chronic obstructive pulmonary disease, unspecified Status: Acute (3) Non-compliant patient: Code(s): Z91.19 - Patient's noncompliance with other medical treatment and regimen Status: Acute (4) Tobacco abuse: Code(s): Z72.0 - Tobacco use Status: Acute (5) Hypertensive heart disease with heart failure and stage 3 chronic kidney disease: Code(s): I13.0 - Hypertensive heart and chronic kidney disease with heart failure and stage 1 through stage 4 chronic kidney disease, or unspecified chronic kidney disease; N18.30 - Chronic kidney disease, stage 3 unspecified Status: Acute (6) Pulmonary nodule: Code(s): R91.1 - Solitary pulmonary nodule Status: Acute (7) Hypertensive urgency: Code(s): I16.0 - Hypertensive urgency Status: Acute (8) Acute kidney injury superimposed on chronic kidney disease: Code(s): N17.9 - Acute kidney failure, unspecified; N18.9 - Chronic kidney disease, unspecified Status: Acute (9) Abnormal vaginal bleeding with endometrial thickness greater than 5 mm present on transvaginal ultrasound in postmenopausal patient: Code(s): N95.0 - Postmenopausal bleeding; R93.89 - Abnormal findings on diagnostic imaging of other specified body structures Status: Acute Additional Plan 01/08/22 Blood pressures are markedly elevated due to noncompliance; she ran out of medications and did not have them refilled. Resume losartan 25 mg daily, carvedilol 3.125 mg daily, amlodipine 10 mg daily. Related to severe hypertension and pulmonary edema/small right pleural effusion on imaging. Lasix 40 mg IV x1 given in the ER. Repeat this evening and tomorrow a.m. Monitor response and I/O. May very well be related to severely elevated blood pressures; catheterization in 2010 showed very mild CAD. Continue to monitor and IMU; trend troponins. Cardiology consulted, recommend starting aspirin 81 mg daily atorvastatin 20 mg daily. Long discussion about compliance and complications she can expect should her conditions continue to go untreated. Right upper lobe nodule appeared a bit larger on today's CT scan. Infection seems less likely at this juncture. Pulmonology consulted. Smoking cessation is imperative and was discussed. Check fasting glucose and A1c. No acute issues; not on inhalers at home. Baseline creatinine seems to range between 0.9 and 1.20; stable. She has a difficult time describing what she is feeling, at times reporting severe burning at other times she calls it tightness. GI cocktail ordered. 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 renal fxn improving endometrial bx results pending cont current care Subjective Date/time seen: 01/12/22 09:02 pt doing ok elevations of BP but asymptomatic Exam Narrative: General: NAD AAOx 3 lying in bed HEENT:
[2022-01-12] MEDS: ACETAMINOPHEN 325 MG TABLET 650 MG PO (11:53)
--- NOTE | 2022-01-12 18:11 | PM.PNCARD ---
Progress Note: A&P Assessment and Plan (1) Non-STEMI (non-ST elevated myocardial infarction): Code(s): I21.4 - Non-ST elevation (NSTEMI) myocardial infarction Status: Acute Assessment and Plan: Likely related to hypertensive crisis. Unlikely from acute plaque rupture but acute plaque rupture is not completely excluded to this point. Underwent coronary angiogram yesterday. She has an occluded proximal left circumflex artery after the takeoff of a large OM1 branch. She also has high-grade stenosis proximal and distal RCA as well as ostial right PDA. Unable to intervene on circumflex lesion due to the anatomy of the vessel RCA lesions to be addressed when kidney function improves and after investigation of her vaginal bleeding Aspirin 81 mg p.o. daily Rosuvastatin 20 mg p.o. daily. Shift coreg to metoprolol Start Imdur Continue nitro paste Start plavix when SUPERVISOR RICE MILLING w/u is complete (2) Hypertensive heart disease: Qualifiers: Heart failure presence: with heart failure Heart failure type: unspecified Qualified Code(s): I11.0 - Hypertensive heart disease with heart failure Code(s): I11.9 - Hypertensive heart disease without heart failure Status: Deleted Assessment and Plan: Metoprolol, imdur, amlodipine as above. Clonidine has been discontinued. (3) Tobacco abuse: Code(s): Z72.0 - Tobacco use Status: Acute Assessment and Plan: Tobacco abuse counseled performed (4) Hypertensive emergency: Code(s): I16.1 - Hypertensive emergency Status: Acute Assessment and Plan: Markedly elevated at presentation secondary to medication noncompliance as her medications ran out she did not have been refilled. BP is better controlled today. Continue losartan, metoprolol, amlodipine, increase losartan 50 mg and metoprolol 25 mg bID. Nitroglycerin paste 1 in topically for now. (5) Non-compliant patient: Code(s): Z91.19 - Patient's noncompliance with other medical treatment and regimen Status: Acute Assessment and Plan: Encouraged better compliance and follow-up with healthcare providers. (6) Pulmonary nodule: Code(s): R91.1 - Solitary pulmonary nodule Status: Acute Assessment and Plan: Pulmonary consulted and recommended follow up chest CT in 3 months to follow (7) COPD (chronic obstructive pulmonary disease): Code(s): J44.9 - Chronic obstructive pulmonary disease, unspecified Status: Acute Assessment and Plan: Outpatient PFT's (8) Abnormal vaginal bleeding in postmenopausal patient: Code(s): N95.0 - Postmenopausal bleeding Status: Deleted Assessment and Plan: SUPERVISOR RICE MILLING c/s placed. (9) Acute on chronic systolic (congestive) heart failure: Code(s): I50.23 - Acute on chronic systolic (congestive) heart failure Status: Acute Assessment and Plan: lasix 40 mg IV BID Subjective Date/time seen: 01/12/22 18:11 Interval history: sleepy with fatigue all day tele: SB and SR SOB Review of Systems Review of Systems: All systems reviewed & are unremarkable except as noted in HPI and below Exam Narrative: Patient awake alert. Appears stated age Const: General: comfortable and no acute distress HENMT: General nose exam: Normal nares present Eyes: Sclera: sclerae normal Neck: Neck: supple and no JVD Chest: Other: No reproducible chest wall pain to palpation Resp: Effort & Inspection: normal respiratory effort Auscultation: crackles and wheezes expiratory wheezes Cardio: Jugular venous distension: JVD Rate: regular rate Rhythm: regular rhythm Heart sounds: no murmurs GI: Inspection: non-distended Auscultation: normal bowel sounds Skin: General skin exam: normal color Other: Arterial access site free from bleeding, hematoma Neuro: Cranial nerves: Yes Normal hearing present Cognition (Neuro): normal cognition Speech: normal speech Extrem
[2022-01-13] VITALS (15 sets, daily range): BP systolic 130–181; BP diastolic 45–81; PULSE 56–74; RESP 15–65; TEMP 36.6–36.9; O2SAT 96–100
[2022-01-13 05:40] LABS: Basophils Absolute Auto 0.1 K/mm3 (0.0-0.1); Basophils Percent Auto 0.6 % (0.2-1.2); Eosinophils Absolute Auto 0.1 K/mm3 (0-0.3); Eosinophils Percent Auto 1.4 % (0-4.4); Hematocrit 38.4 % (37.0-47.0); Immature Granulocyte Absolute 0.02 K/mm3 (0.00-0.031); Immature Granulocyte Percent A 0.3 % (0-0.5); Lymphocytes Absolute Auto 1.58 K/mm3 (0.9-3.2); Lymphocytes Percent Auto 20.5 % (18.3-44.2); Mean Corpuscular HGB Conc 28.6 g/dl (32-36); Mean Corpuscular Hemoglobin 25.5 pg (26-34); Mean Corpuscular Volume 89.1 fl (80-100); Mean Platelet Volume 12.7 fl (7.4-10.4); Neutrophils Percent Auto 64.2 % (45.5-73.1); Platelet Count Result 213 k/mm3 (150-375); Red Blood Count 4.31 M/mm3 (4.2-5.4); Red Cell Distribution Width 19.3 % (11.5-14.5); White Blood Count 7.7 K/mm3 (4.5-10.0)
[2022-01-13 05:56] LABS: Anion Gap 3 mmol/L (8-16); Blood Urea Nitrogen 14 mg/dL (7-17); Calcium 8.5 mg/dL (8.4-10.2); Carbon Dioxide 33 mmol/L (22-30); Chloride 100 mmol/L (98-107); Estimated CRCL calculation 51 ml/min; Estimated Glomerular Filt Rate 51; Glucose 142 mg/dL (65-110); Potassium 4.1 mmol/L (3.4-5.0); Sodium 136 mmol/L (137-145)
[2022-01-13 06:20] LABS: Platelet Estimate Adequate (Adequate)
[2022-01-13 06:21] LABS: Anisocytosis 1+ (NORMAL); Ovalocytes 1+ (NORMAL)
[2022-01-13] MEDS: ISOSORBIDE MONONITRATE 60 MG TAB.ER.24H PO (08:35)
[2022-01-13] MEDS: hydrALAZINE HCL 20 MG/ML VIAL 10 MG IV PUSH (08:35)
[2022-01-13] MEDS: LOSARTAN POTASSIUM 50 MG TABLET PO (08:36)
[2022-01-13] MEDS: ROSUVASTATIN 10 MG TABLET 20 MG PO (08:36)
[2022-01-13] MEDS: FUROSEMIDE INJ 40 MG/4 ML VIAL IV PUSH ×2 (08:36→16:03)
[2022-01-13] MEDS: ASPIRIN 81 MG CHEWABLE TABLET PO (08:36)
[2022-01-13] MEDS: amLODIPine BESYLATE 5 MG TABLET 10 MG PO (08:36)
[2022-01-13] MEDS: METOPROLOL TARTRATE 12.5 MG TABLET PO ×2 (08:36→20:56)
[2022-01-13] MEDS: UMECLIDINIUM BROMIDE 62.5 MCG ELLIPTA 1 PUFF INHALATION (08:51)
[2022-01-13] MEDS: ALBUTEROL SULFATE (*SP) AEROSOL 1 PUFF 2 PUFF INHALATION (09:04)
[2022-01-13] MEDS: ACETAMINOPHEN 325 MG TABLET 650 MG PO (16:02)
--- NOTE | 2022-01-13 16:28 | PM.PNCARD ---
Progress Note: A&P Assessment and Plan (1) Non-STEMI (non-ST elevated myocardial infarction): Code(s): I21.4 - Non-ST elevation (NSTEMI) myocardial infarction <RITA Whitehead - Last Filed: 01/13/22 16:59> Status: Acute <RITA Whitehead - Last Filed: 01/13/22 16:59> Assessment and Plan: Likely related to hypertensive crisis. Unlikely from acute plaque rupture but acute plaque rupture is not completely excluded to this point. Underwent coronary angiogram yesterday. She has an occluded proximal left circumflex artery after the takeoff of a large OM1 branch. She also has high-grade stenosis proximal and distal RCA as well as ostial right PDA. Unable to intervene on circumflex lesion due to the anatomy of the vessel RCA lesions to be addressed when plan from FARM SERVICE ADVISER in place/with results of endometrial biopsy Aspirin 81 mg p.o. daily Rosuvastatin 20 mg p.o. daily. Continue metoprolol Continue Imdur Start plavix when FARM SERVICE ADVISER w/u is complete <RITA Whitehead - Last Filed: 01/13/22 16:59> (2) Hypertensive heart disease: Qualifiers: Heart failure presence: with heart failure Heart failure type: unspecified Qualified Code(s): I11.0 - Hypertensive heart disease with heart failure <RITA Whitehead - Last Filed: 01/13/22 16:59> Code(s): I11.9 - Hypertensive heart disease without heart failure <RITA Whitehead - Last Filed: 01/13/22 16:59> Status: Deleted <RITA Whitehead - Last Filed: 01/13/22 16:59> Assessment and Plan: Metoprolol, imdur, amlodipine as above. Clonidine has been discontinued. <RITA Whitehead - Last Filed: 01/13/22 16:59> (3) Tobacco abuse: Code(s): Z72.0 - Tobacco use <RITA Whitehead - Last Filed: 01/13/22 16:59> Status: Acute <RITA Whitehead - Last Filed: 01/13/22 16:59> Assessment and Plan: Tobacco abuse counseled performed <RITA Whitehead - Last Filed: 01/13/22 16:59> (4) Hypertensive emergency: Code(s): I16.1 - Hypertensive emergency <RITA Whitehead - Last Filed: 01/13/22 16:59> Status: Acute <RITA Whitehead - Last Filed: 01/13/22 16:59> Assessment and Plan: Markedly elevated at presentation secondary to medication noncompliance as her medications ran out she did not have been refilled. BP is better controlled today. Continue losartan, metoprolol, amlodipine, increase losartan 50 mg and metoprolol 25 mg BID. <RITA Whitehead - Last Filed: 01/13/22 16:59> (5) Non-compliant patient: Code(s): Z91.19 - Patient's noncompliance with other medical treatment and regimen <RITA Whitehead - Last Filed: 01/13/22 16:59> Status: Acute <RITA Whitehead - Last Filed: 01/13/22 16:59> Assessment and Plan: Encouraged better compliance and follow-up with healthcare providers. <RITA Whitehead - Last Filed: 01/13/22 16:59> (6) Pulmonary nodule: Code(s): R91.1 - Solitary pulmonary nodule <RITA Whitehead - Last Filed: 01/13/22 16:59> Status: Acute <RITA Whitehead - Last Filed: 01/13/22 16:59> Assessment and Plan: Pulmonary consulted and recommended follow up chest CT in 3 months to follow <RITA Whitehead - Last Filed: 01/13/22 16:59> (7) COPD (chronic obstructive pulmonary disease): Code(s): J44.9 - Chronic obstructive pulmonary disease, unspecified <RITA Whitehead - Last Filed: 01/13/22 16:59> Status: Acute <RITA Whitehead - Last Filed: 01/13/22 16:59> Assessment and Plan: Outpatient PFT's <RITA Whitehead - Last Filed: 01/13/22 16:59> (8) Abnormal vaginal bleeding in postmenopausal patient: Code(s): N95.0 - Postmenopausal bleeding <RITA Whitehead - Last Filed: 01/13/22 16:59> Status: D
--- NOTE | 2022-01-13 16:44 | PM.IMPN ---
Progress Note: A&P Assessment and Plan (1) Non-STEMI (non-ST elevated myocardial infarction): Code(s): I21.4 - Non-ST elevation (NSTEMI) myocardial infarction Status: Acute (2) COPD (chronic obstructive pulmonary disease): Code(s): J44.9 - Chronic obstructive pulmonary disease, unspecified Status: Acute (3) Non-compliant patient: Code(s): Z91.19 - Patient's noncompliance with other medical treatment and regimen Status: Acute (4) Tobacco abuse: Code(s): Z72.0 - Tobacco use Status: Acute (5) Hypertensive heart disease with heart failure and stage 3 chronic kidney disease: Code(s): I13.0 - Hypertensive heart and chronic kidney disease with heart failure and stage 1 through stage 4 chronic kidney disease, or unspecified chronic kidney disease; N18.30 - Chronic kidney disease, stage 3 unspecified Status: Acute (6) Pulmonary nodule: Code(s): R91.1 - Solitary pulmonary nodule Status: Acute (7) Hypertensive urgency: Code(s): I16.0 - Hypertensive urgency Status: Acute (8) Acute kidney injury superimposed on chronic kidney disease: Code(s): N17.9 - Acute kidney failure, unspecified; N18.9 - Chronic kidney disease, unspecified Status: Acute (9) Abnormal vaginal bleeding with endometrial thickness greater than 5 mm present on transvaginal ultrasound in postmenopausal patient: Code(s): N95.0 - Postmenopausal bleeding; R93.89 - Abnormal findings on diagnostic imaging of other specified body structures Status: Acute Additional Plan 01/08/22 Blood pressures are markedly elevated due to noncompliance; she ran out of medications and did not have them refilled. Resume losartan 25 mg daily, carvedilol 3.125 mg daily, amlodipine 10 mg daily. Related to severe hypertension and pulmonary edema/small right pleural effusion on imaging. Lasix 40 mg IV x1 given in the ER. Repeat this evening and tomorrow a.m. Monitor response and I/O. May very well be related to severely elevated blood pressures; catheterization in 2010 showed very mild CAD. Continue to monitor and IMU; trend troponins. Cardiology consulted, recommend starting aspirin 81 mg daily atorvastatin 20 mg daily. Long discussion about compliance and complications she can expect should her conditions continue to go untreated. Right upper lobe nodule appeared a bit larger on today's CT scan. Infection seems less likely at this juncture. Pulmonology consulted. Smoking cessation is imperative and was discussed. Check fasting glucose and A1c. No acute issues; not on inhalers at home. Baseline creatinine seems to range between 0.9 and 1.20; stable. She has a difficult time describing what she is feeling, at times reporting severe burning at other times she calls it tightness. GI cocktail ordered. 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 renal fxn improving endometrial bx results pending cont current care 01/13/22 pt doing ok renal fxn recovered pending cardio and strategic partnership specialist recs cont current care Subjective Date/time seen: 01/13/22 16:44 doing ok aware
[2022-01-14] VITALS (13 sets, daily range): BP systolic 110–176; BP diastolic 55–71; PULSE 55–64; RESP 13–20; TEMP 36.1–36.4; O2SAT 96–100
[2022-01-14] MEDS: UMECLIDINIUM BROMIDE 62.5 MCG ELLIPTA 1 PUFF INHALATION (08:26)
[2022-01-14] MEDS: METOPROLOL TARTRATE 12.5 MG TABLET PO ×2 (08:44→22:09)
[2022-01-14] MEDS: ISOSORBIDE MONONITRATE 60 MG TAB.ER.24H PO (08:44)
[2022-01-14] MEDS: ROSUVASTATIN 10 MG TABLET 20 MG PO (08:44)
[2022-01-14] MEDS: amLODIPine BESYLATE 5 MG TABLET 10 MG PO (08:44)
[2022-01-14] MEDS: ASPIRIN 81 MG CHEWABLE TABLET PO (08:44)
[2022-01-14] MEDS: LOSARTAN POTASSIUM 50 MG TABLET PO (08:45)
[2022-01-14] MEDS: FUROSEMIDE INJ 40 MG/4 ML VIAL IV PUSH (08:45)
--- NOTE | 2022-01-14 11:03 | PM.PNCARD ---
Progress Note: A&P Assessment and Plan (1) Non-STEMI (non-ST elevated myocardial infarction): Code(s): I21.4 - Non-ST elevation (NSTEMI) myocardial infarction <RITA Whitehead - Last Filed: 01/14/22 16:27> Status: Acute <RITA Whitehead - Last Filed: 01/14/22 16:27> Assessment and Plan: Likely related to hypertensive crisis. Unlikely from acute plaque rupture but acute plaque rupture is not completely excluded to this point. Underwent coronary angiogram yesterday. She has an occluded proximal left circumflex artery after the takeoff of a large OM1 branch. She also has high-grade stenosis proximal and distal RCA as well as ostial right PDA. Unable to intervene on circumflex lesion due to the anatomy of the vessel RCA lesions to be addressed when plan from FEATHER EDGER in place/with results of endometrial biopsy Aspirin 81 mg p.o. daily Rosuvastatin 20 mg p.o. daily. Continue metoprolol Continue Imdur Start plavix when FEATHER EDGER w/u is complete if appropriate based on plan <RITA Whitehead - Last Filed: 01/14/22 16:27> (2) Hypertensive heart disease: Qualifiers: Heart failure presence: with heart failure Heart failure type: unspecified Qualified Code(s): I11.0 - Hypertensive heart disease with heart failure <RITA Whitehead - Last Filed: 01/14/22 16:27> Code(s): I11.9 - Hypertensive heart disease without heart failure <RITA Whitehead - Last Filed: 01/14/22 16:27> Status: Deleted <RITA Whitehead - Last Filed: 01/14/22 16:27> Assessment and Plan: Metoprolol, imdur, amlodipine as above. Clonidine has been discontinued. <RITA Whitehead - Last Filed: 01/14/22 16:27> (3) Tobacco abuse: Code(s): Z72.0 - Tobacco use <RITA Whitehead - Last Filed: 01/14/22 16:27> Status: Acute <RITA Whitehead - Last Filed: 01/14/22 16:27> Assessment and Plan: Tobacco abuse counseled performed <RITA Whitehead - Last Filed: 01/14/22 16:27> (4) Hypertensive emergency: Code(s): I16.1 - Hypertensive emergency <RITA Whitehead - Last Filed: 01/14/22 16:27> Status: Acute <RITA Whitehead - Last Filed: 01/14/22 16:27> Assessment and Plan: Markedly elevated at presentation secondary to medication noncompliance as her medications ran out she did not have been refilled. BP is better controlled today. Continue losartan, metoprolol, amlodipine, increase losartan 50 mg and metoprolol 25 mg BID. <RITA Whitehead - Last Filed: 01/14/22 16:27> (5) Non-compliant patient: Code(s): Z91.19 - Patient's noncompliance with other medical treatment and regimen <RITA Whitehead - Last Filed: 01/14/22 16:27> Status: Acute <RITA Whitehead - Last Filed: 01/14/22 16:27> Assessment and Plan: Encouraged better compliance and follow-up with healthcare providers. <RITA Whitehead - Last Filed: 01/14/22 16:27> (6) Pulmonary nodule: Code(s): R91.1 - Solitary pulmonary nodule <RITA Whitehead - Last Filed: 01/14/22 16:27> Status: Acute <RITA Whitehead - Last Filed: 01/14/22 16:27> Assessment and Plan: Pulmonary consulted and recommended follow up chest CT in 3 months to follow <RITA Whitehead - Last Filed: 01/14/22 16:27> (7) COPD (chronic obstructive pulmonary disease): Code(s): J44.9 - Chronic obstructive pulmonary disease, unspecified <RITA Whitehead - Last Filed: 01/14/22 16:27> Status: Acute <RITA Whitehead - Last Filed: 01/14/22 16:27> Assessment and Plan: Outpatient PFT's <RITA Whitehead - Last Filed: 01/14/22 16:27> (8) Abnormal vaginal bleeding in postmenopausal patient: Code(s): N95.0 - Postmenopausal bleeding <RITA Whitehead - Last Filed: 01/14/22 1
[2022-01-14] MEDS: ACETAMINOPHEN 325 MG TABLET 650 MG PO (11:20)
--- NOTE | 2022-01-14 16:07 | P.PNIM_ITS ---
Progress Note: A&P Assessment and Plan (1) Non-STEMI (non-ST elevated myocardial infarction): Code(s): I21.4 - Non-ST elevation (NSTEMI) myocardial infarction Status: Acute Assessment and Plan: May very well be related to severely elevated blood pressures; catheterization in 2010 showed very mild CAD. * Continue to monitor and IMU; trend troponins. * Cardiology consulted, recommend starting aspirin 81 mg daily atorvastatin 20 mg daily. (2) COPD (chronic obstructive pulmonary disease): Code(s): J44.9 - Chronic obstructive pulmonary disease, unspecified Status: Acute (3) Non-compliant patient: Code(s): Z91.19 - Patient's noncompliance with other medical treatment and regimen Status: Acute Assessment and Plan: * Long discussion about compliance and complications she can expect should her conditions continue to go untreated. (4) Tobacco abuse: Code(s): Z72.0 - Tobacco use Status: Acute Assessment and Plan: * Smoking cessation is imperative and was discussed. (5) Hypertensive heart disease with heart failure and stage 3 chronic kidney disease: Code(s): I13.0 - Hypertensive heart and chronic kidney disease with heart failure and stage 1 through stage 4 chronic kidney disease, or unspecified chronic kidney disease; N18.30 - Chronic kidney disease, stage 3 unspecified Status: Acute (6) Pulmonary nodule: Code(s): R91.1 - Solitary pulmonary nodule Status: Acute Assessment and Plan: Right upper lobe nodule appeared a bit larger on today's CT scan. * Infection seems less likely at this juncture. * Pulmonology consulted. (7) Hypertensive urgency: Code(s): I16.0 - Hypertensive urgency Status: Acute (8) Acute kidney injury superimposed on chronic kidney disease: Code(s): N17.9 - Acute kidney failure, unspecified; N18.9 - Chronic kidney disease, unspecified Status: Acute (9) Abnormal vaginal bleeding with endometrial thickness greater than 5 mm present on transvaginal ultrasound in postmenopausal patient: Code(s): N95.0 - Postmenopausal bleeding; R93.89 - Abnormal findings on diagnostic imaging of other specified body structures Status: Acute Additional Plan 01/08/22 Blood pressures are markedly elevated due to noncompliance; she ran out of medications and did not have them refilled. Resume losartan 25 mg daily, carvedilol 3.125 mg daily, amlodipine 10 mg daily. Related to severe hypertension and pulmonary edema/small right pleural effusion on imaging. Lasix 40 mg IV x1 given in the ER. Repeat this evening and tomorrow a.m. Monitor response and I/O. May very well be related to severely elevated blood pressures; catheterization in 2010 showed very mild CAD. Continue to monitor and IMU; trend troponins. Cardiology consulted, recommend starting aspirin 81 mg daily atorvastatin 20 mg daily. Long discussion about compliance and complications she can expect should her conditions continue to go untreated. Right upper lobe nodule appeared a bit larger on today's CT scan. Infection seems less likely at this juncture. Pulmonology consulted. Smoking cessation is imperative and was discussed. Check fasting glucose and A1c. No acute issues; not on inhalers at home. Baseline creatinine seems to range between 0.9 and 1.20; stable. She has a difficult time describing what she is feeling, at times reporting severe burning at other times she calls it tightness. GI cocktail ordered. 01/09/22 elevated trop 11.9 -> director of cath lab no PCI perferomed due to
[2022-01-15] MEDS: FUROSEMIDE 40 MG TABLET PO (09:46)
[2022-01-15 09:47] VITALS: PULSE 72
[2022-01-15] MEDS: ROSUVASTATIN 10 MG TABLET 20 MG PO (09:47)
[2022-01-15] MEDS: METOPROLOL TARTRATE 12.5 MG TABLET PO (09:47)
[2022-01-15] MEDS: ASPIRIN 81 MG CHEWABLE TABLET PO (09:48)
[2022-01-15] MEDS: amLODIPine BESYLATE 5 MG TABLET 10 MG PO (09:48)
[2022-01-15] MEDS: LOSARTAN POTASSIUM 50 MG TABLET PO (09:48)
[2022-01-15] MEDS: ISOSORBIDE MONONITRATE 60 MG TAB.ER.24H PO (09:48)
--- NOTE | 2022-01-15 09:57 | PM.PNCARD ---
Progress Note: A&P Additional Plan 56-year-old lady with: Severe 2 vessel coronary artery disease. Plans according to my partner are to consider aggressive, higher risk PCI of the heavily diseased right coronary artery once we have firm plan/results regarding her api developer evaluation regarding her postmenopausal bleeding. Appears that we are waiting for the biopsy results to make those decisions. In the meantime I am going to continue to advance her medical regimen because of hypertension. I will advance her beta-sloane dosage today. Continue amlodipine as well as losartan. When she is ready for discharge we will arrange follow-up in our office where she and Dr. Krueger can decide together on when would be inappropriate/reasonable time to consider arranging for attempted PCI in her right coronary artery. Ferdinand Perales MD [facility] Subjective Date/time seen: Date of service: 01/15/22 09:57 Interval history: This is a 56-year-old lady with: Severe coronary artery disease with occlusion of the circumflex following the 1st OM branch and high-grade disease in several locations of the RCA. Patient was seen because of troponin elevation related to severe hypertension which was the result of noncompliance with her medical regimen. She is asymptomatic this morning with respect to her her coronary disease still hypertensive according to her vital signs. Still awaiting endometrial biopsy results which were done about 5 days ago. Exam Narrative: Patient sleeping when I entered the room but awakens to voice. Const: General: comfortable and no acute distress HENMT: General nose exam: Normal nares present Eyes: Sclera: sclerae normal Neck: Neck: supple and no JVD Chest: Other: No reproducible chest wall pain to palpation Resp: Effort & Inspection: normal respiratory effort Auscultation: crackles and wheezes expiratory wheezes Cardio: Jugular venous distension: JVD Rate: regular rate Rhythm: regular rhythm Heart sounds: Murmur heart sound present GI: Inspection: non-distended Auscultation: normal bowel sounds Skin: General skin exam: normal color Other: Arterial access site free from bleeding, hematoma Neuro: Cranial nerves: Yes Normal hearing present Cognition (Neuro): normal cognition Speech: normal speech Extrem: General: normal to inspection and no edema Psych: Mental Status: mental status grossly normal Objective Data Vital Signs Vital Signs: Vital Signs - 24 hr 01/14/22 10:00 01/14/22 12:00 01/14/22 14:00 Temperature 36.3 C L Pulse Rate 59 L 56 L 64 Respiratory Rate 18 Blood Pressure 110/56 L Pulse Oximetry 96 01/14/22 16:00 01/14/22 22:09 01/14/22 23:48 Temperature 36.2 C L 36.1 C L Pulse Rate 58 L 63 60 Respiratory Rate 18 16 Blood Pressure 150/71 H 176/63 H Pulse Oximetry 100 100 01/15/22 09:47 Temperature Pulse Rate 72 Respiratory Rate Blood Pressure Pulse Oximetry Intake/Output Intake/Output: Intake & Output 01/12/22 01/13/22 01/14/22 01/15/22 23:59 23:59 23:59 23:59 Intake Total 3640 2490 2690 740 Output Total 2400 6549 4100 Balance 7330 -5592 -4600 740 Meds/Results Medications: Active Medications Generic Name Dose Route Start Last Admin Trade Name Freq PRN Reason Stop Dose Admin Acetaminophen 650 mg 01/08/22 08:51 01/14/22 11:20 Acetaminophen 325 Mg Tablet PO 650 mg Q4H PRN Administration Mild Pain (1-3) or Fever Albuterol 2 puff 01/08/22 16:51 01/13/22 09:04 Albuterol Sulfate (*Sp) Aerosol 1 Puff INHALATION 2 puff Q6HRT PRN Administration Shortness Of Breath Amlodipine Besylate 10 mg 01/08/22 11:15 01/15/22 09:48 Amlodipine Besylate 5 Mg Tablet PO 10 mg QAM ROSLYN Administration Aspirin 81 mg 01/09/22 08:00 01/15/22 09:48 Aspirin 81 Mg Chewable Tablet PO 81 mg DAILY@0800 ROSLYN Administration Furosemide 40 mg 01/15/22 09:00 01/15/22 09:46 Furosemide 40 Mg Tablet PO 40 mg DAILY [facility]
--- NOTE | 2022-01-15 11:48 | PCNWS ---
Weekly nutritional screen. Patient is tolerating regular diet with adequate intake at 75-100% of meals. No weight loss reported. No nutritional needs at this time.
--- NOTE | 2022-01-15 12:56 | PM.IMPN ---
Progress Note: A&P Assessment and Plan (1) Non-STEMI (non-ST elevated myocardial infarction): Code(s): I21.4 - Non-ST elevation (NSTEMI) myocardial infarction Status: Acute Assessment and Plan: May very well be related to severely elevated blood pressures; catheterization in 2010 showed very mild CAD. Continue to monitor and IMU; trend troponins. Cardiology consulted, recommend starting aspirin 81 mg daily atorvastatin 20 mg daily. (2) COPD (chronic obstructive pulmonary disease): Code(s): J44.9 - Chronic obstructive pulmonary disease, unspecified Status: Acute (3) Non-compliant patient: Code(s): Z91.19 - Patient's noncompliance with other medical treatment and regimen Status: Acute Assessment and Plan: Long discussion about compliance and complications she can expect should her conditions continue to go untreated. (4) Tobacco abuse: Code(s): Z72.0 - Tobacco use Status: Acute Assessment and Plan: Smoking cessation is imperative and was discussed. (5) Hypertensive heart disease with heart failure and stage 3 chronic kidney disease: Code(s): I13.0 - Hypertensive heart and chronic kidney disease with heart failure and stage 1 through stage 4 chronic kidney disease, or unspecified chronic kidney disease; N18.30 - Chronic kidney disease, stage 3 unspecified Status: Acute (6) Pulmonary nodule: Code(s): R91.1 - Solitary pulmonary nodule Status: Acute Assessment and Plan: Right upper lobe nodule appeared a bit larger on today's CT scan. Infection seems less likely at this juncture. Pulmonology consulted. (7) Hypertensive urgency: Code(s): I16.0 - Hypertensive urgency Status: Acute (8) Acute kidney injury superimposed on chronic kidney disease: Code(s): N17.9 - Acute kidney failure, unspecified; N18.9 - Chronic kidney disease, unspecified Status: Acute (9) Abnormal vaginal bleeding with endometrial thickness greater than 5 mm present on transvaginal ultrasound in postmenopausal patient: Code(s): N95.0 - Postmenopausal bleeding; R93.89 - Abnormal findings on diagnostic imaging of other specified body structures Status: Acute Additional Plan 01/08/22 Blood pressures are markedly elevated due to noncompliance; she ran out of medications and did not have them refilled. Resume losartan 25 mg daily, carvedilol 3.125 mg daily, amlodipine 10 mg daily. Related to severe hypertension and pulmonary edema/small right pleural effusion on imaging. Lasix 40 mg IV x1 given in the ER. Repeat this evening and tomorrow a.m. Monitor response and I/O. May very well be related to severely elevated blood pressures; catheterization in 2010 showed very mild CAD. Continue to monitor and IMU; trend troponins. Cardiology consulted, recommend starting aspirin 81 mg daily atorvastatin 20 mg daily. Long discussion about compliance and complications she can expect should her conditions continue to go untreated. Right upper lobe nodule appeared a bit larger on today's CT scan. Infection seems less likely at this juncture. Pulmonology consulted. Smoking cessation is imperative and was discussed. Check fasting glucose and A1c. No acute issues; not on inhalers at home. Baseline creatinine seems to range between 0.9 and 1.20; stable. She has a difficult time describing what she is feeling, at times reporting severe burning at other times she calls it tightness. GI cocktail ordered. 01/09/22 elevated trop 11.9 -> crime lab analyst no PCI perferomed due to anatomy and location of lesion CT w lung nodules will need follow up in 3 months SOB COPD active TOb encourage to quit pelvic US for post menopausal bleeding poorly compliant pt spent 4 days in ICU w first SC 2010 but did not follow up 01/10/22 pending US, I have called to US dept to confirm they will be coming to perform study today NSTEMI w conservative care -> cardio ok w karthik of nitro
[2022-01-15 14:00] VITALS: BP 123/72; PULSE 61; RESP 14; TEMP 35.9; O2SAT 100
--- NOTE | 2022-01-15 16:17 | PM.GYNPNOP ---
SAND CUTTER OPERATOR - A/P Time Spent With Patient Time with patient: less than 15 minutes SAND CUTTER OPERATOR- PN:Subj Post-Op Subjective Date/time seen: 01/15/22 16:17 No vaginal bleeding. Apparently the plan is to discharge her to home and have another cardiac procedure as an outpatient. Pathology report returned this afternoon: Endometrial sampling demonstrates scant material with atypical mucinous epithelium on a background of atrophic endometrium. The pathologist notes the epithelium is worrisome for mucinous metaplasia or endometrial neoplasia with mucinous differentiation I reviewed the report with the patient today. I have recommended a hysteroscopy with dilation and sharp curettage. This can certainly be performed as an outpatient. I asked her to phone my office tomorrow for an appointment next week. I reiterated the importance of follow up. Thank you for involving me in the care of this patient. SAND CUTTER OPERATOR - PN: Obj Data Vital Signs Vital Signs: Vital Signs - 24 hr 01/14/22 22:09 01/14/22 23:48 01/15/22 09:47 Temperature 36.1 C L Pulse Rate 63 60 72 Respiratory Rate 16 Blood Pressure 176/63 H Pulse Oximetry 100 01/15/22 14:00 Temperature 35.9 C L Pulse Rate 61 Respiratory Rate 14 Blood Pressure 123/72 Pulse Oximetry 100 Intake/Output Intake/Output: Intake & Output 01/12/22 01/13/22 01/14/22 01/15/22 23:59 23:59 23:59 23:59 Intake Total 3640 2490 2690 980 Output Total 2400 6550 4100 Balance 1240 4060 -1410 980 Meds/Results Medications: Active Medications Generic Name Dose Route Start Last Admin Trade Name Robbieq PRN Reason Stop Dose Admin Acetaminophen 650 mg 01/08/22 08:51 01/14/22 11:20 Acetaminophen 325 Mg Tablet PO 650 mg Q4H PRN Administration Mild Pain (1-3) or Fever Albuterol 2 puff 01/08/22 16:51 01/13/22 09:04 Albuterol Sulfate (*Sp) Aerosol 1 Puff INHALATION 2 puff Q6HRT PRN Administration Shortness Of Breath Amlodipine Besylate 10 mg 01/08/22 11:15 01/15/22 09:48 Amlodipine Besylate 5 Mg Tablet PO 10 mg QAM ROSLYN Administration Aspirin 81 mg 01/09/22 08:00 01/15/22 09:48 Aspirin 81 Mg Chewable Tablet PO 81 mg DAILY@0800 ROSLYN Administration Furosemide 40 mg 01/15/22 09:00 01/15/22 09:46 Furosemide 40 Mg Tablet PO 40 mg DAILY ROSLYN Administration Hydralazine HCl 10 mg 01/11/22 08:02 01/13/22 08:35 Hydralazine Hcl 20 Mg/Ml Vial IV PUSH 10 mg Q8H PRN Administration Blood Pressure - High SBP>180 Isosorbide Mononitrate 60 mg 01/11/22 09:00 01/15/22 09:48 Isosorbide Mononitrate 60 Mg Tab.Er.24h PO 60 mg QAM [facility] Administration Losartan Potassium 50 mg 01/13/22 09:00 01/15/22 09:48 Losartan Potassium 50 Mg Tablet PO 50 mg DAILY [facility] Administration Metoprolol Tartrate 25 mg 01/15/22 21:00 Metoprolol Tartrate 25 Mg Tablet PO Q12HR [facility] Perflutren Lipid Microsphere 0 ml 01/09/22 09:10 Perflutren Lipid Microspheres 1.5 Ml Vial Diluted To 10 Ml Total Volume IV PUSH ONCE PRN adequate visualization Protocol Rosuvastatin Calcium 20 mg 01/11/22 09:00 01/15/22 09:47 Rosuvastatin 10 Mg Tablet PO 20 mg QAM [facility] Administration Umeclidinium [place] 1 puff 01/08/22 16:50 01/14/22 08:26 Umeclidinium [place] 62.5 Mcg Ellipta INHALATION 1 puff DAILYRT [facility] Administration Labs CBC & Chem 7: 01/13/22 05:31 01/13/22 05:31 Quality VTE Prophylaxis VTE prophylaxis: mechanical ordered
[2022-01-15 20:03] VITALS: PULSE 72
[2022-01-15] MEDS: METOPROLOL TARTRATE 25 MG TABLET PO (20:03)
[2022-01-15 22:00] VITALS: BP 137/49; PULSE 70; RESP 16; TEMP 36.7; O2SAT 95
[2022-01-16 06:00] VITALS: BP 148/75; PULSE 71; RESP 16; TEMP 36.6; O2SAT 100
[2022-01-16] MEDS: LOSARTAN POTASSIUM 50 MG TABLET PO (08:34)
[2022-01-16] MEDS: amLODIPine BESYLATE 5 MG TABLET 10 MG PO (08:34)
[2022-01-16] MEDS: ISOSORBIDE MONONITRATE 60 MG TAB.ER.24H PO (08:34)
[2022-01-16] MEDS: METOPROLOL TARTRATE 25 MG TABLET PO (08:34)
[2022-01-16] MEDS: FUROSEMIDE 40 MG TABLET PO (08:34)
[2022-01-16] MEDS: ASPIRIN 81 MG CHEWABLE TABLET PO (08:34)
[2022-01-16] MEDS: ROSUVASTATIN 10 MG TABLET 20 MG PO (08:34)
[2022-01-16] MEDS: UMECLIDINIUM BROMIDE 62.5 MCG ELLIPTA 1 PUFF INHALATION (09:17)
[2022-01-16 09:41] LABS: Hematocrit 42.9 % (37.0-47.0); Hemoglobin 12.5 g/dL (12.0-15.0); Mean Corpuscular HGB Conc 29.1 g/dl (32-36); Mean Corpuscular Hemoglobin 25.3 pg (26-34); Mean Corpuscular Volume 86.7 fl (80-100); Mean Platelet Volume 11.4 fl (7.4-10.4); Platelet Count Result 309 k/mm3 (150-375); Red Blood Count 4.95 M/mm3 (4.2-5.4); Red Cell Distribution Width 19.6 % (11.5-14.5); White Blood Count 7.4 K/mm3 (4.5-10.0)
[2022-01-16 09:55] LABS: Alanine Aminotransferase 18 U/L (6-35); Albumin Level 3.3 g/dL (3.5-5.1); Alkaline Phosphatase 103 U/L (38-126); Anion Gap 4 mmol/L (8-16); Aspartate Amino Transferase 25 U/L (14-36); Bilirubin,Total 0.4 mg/dL (0.2-1.3); Blood Urea Nitrogen 21 mg/dL (7-17); Calcium 8.5 mg/dL (8.4-10.2); Carbon Dioxide 32 mmol/L (22-30); Chloride 96 mmol/L (98-107); Estimated CRCL calculation 55 ml/min; Estimated Glomerular Filt Rate 57; Glucose 260 mg/dL (65-110); Potassium 4.3 mmol/L (3.4-5.0); Sodium 132 mmol/L (137-145)
[2022-01-16] MEDS: SODIUM CHLORIDE 0.9% IV 500 ML IV CONT (11:13)
[2022-01-16] MEDS: ACETAMINOPHEN 325 MG TABLET 650 MG PO (11:21)
[2022-01-16 14:00] VITALS: BP 136/63; PULSE 60; RESP 16; TEMP 35.7; O2SAT 98
[2022-01-16 15:12] LABS: Anion Gap 3 mmol/L (8-16); Blood Urea Nitrogen 22 mg/dL (7-17); Calcium 8.4 mg/dL (8.4-10.2); Carbon Dioxide 33 mmol/L (22-30); Chloride 98 mmol/L (98-107); Estimated CRCL calculation 55 ml/min; Estimated Glomerular Filt Rate 57; Glucose 160 mg/dL (65-110); Potassium 4.9 mmol/L (3.4-5.0); Sodium 134 mmol/L (137-145)
--- NOTE | 2022-01-16 18:53 | PM.DS ---
DS: Admitting Diagnosis Discharge Date January 16, 2022 Admitting Diagnosis Postmenopausal bleeding DS: Discharge Diagnosis Discharge Diagnosis (1) Non-STEMI (non-ST elevated myocardial infarction): Code(s): I21.4 - Non-ST elevation (NSTEMI) myocardial infarction Status: Acute Assessment and Plan: May very well be related to severely elevated blood pressures; catheterization in 2010 showed very mild CAD. Continue to monitor and IMU; trend troponins. Cardiology consulted, recommend starting aspirin 81 mg daily atorvastatin 20 mg daily. (2) COPD (chronic obstructive pulmonary disease): Code(s): J44.9 - Chronic obstructive pulmonary disease, unspecified Status: Acute (3) Non-compliant patient: Code(s): Z91.19 - Patient's noncompliance with other medical treatment and regimen Status: Acute Assessment and Plan: Long discussion about compliance and complications she can expect should her conditions continue to go untreated. (4) Tobacco abuse: Code(s): Z72.0 - Tobacco use Status: Acute Assessment and Plan: Smoking cessation is imperative and was discussed. (5) Hypertensive heart disease with heart failure and stage 3 chronic kidney disease: Code(s): I13.0 - Hypertensive heart and chronic kidney disease with heart failure and stage 1 through stage 4 chronic kidney disease, or unspecified chronic kidney disease; N18.30 - Chronic kidney disease, stage 3 unspecified Status: Acute (6) Pulmonary nodule: Code(s): R91.1 - Solitary pulmonary nodule Status: Acute Assessment and Plan: Right upper lobe nodule appeared a bit larger on today's CT scan. Infection seems less likely at this juncture. Pulmonology consulted. (7) Hypertensive urgency: Code(s): I16.0 - Hypertensive urgency Status: Acute (8) Acute kidney injury superimposed on chronic kidney disease: Code(s): N17.9 - Acute kidney failure, unspecified; N18.9 - Chronic kidney disease, unspecified Status: Acute (9) Abnormal vaginal bleeding with endometrial thickness greater than 5 mm present on transvaginal ultrasound in postmenopausal patient: Code(s): N95.0 - Postmenopausal bleeding; R93.89 - Abnormal findings on diagnostic imaging of other specified body structures Status: Acute DS: Summary Hospital Course Reason for hospitalization: Postmenopausal bleeding Hospital Course: 56-year-old female with past medical history significant for hypertension and tobacco abuse presented to the ER with chest and back pain. In the ER, she was noted to have an NSTEMI with associated elevated troponins. She states she ran out of her blood pressure medications a couple weeks ago and has not been feeling well since then. Cardiology was consulted and started patient on Lipitor and aspirin. She is noted to have hypertensive emergency there resolved relatively quickly in the ER. Therefore she was started on losartan, carvedilol and amlodipine due to her past medical history listed in his medications despite her being noncompliant. Incidental pulmonary nodule was found will need outpatient workup. Pulmonology was consulted inpatient recommended a repeat CTA outpatient in 3 months and signed off. Cardiology decided to do heart catheterization and ordered an echo. Catheterization report states the patient was not a candidate for PCI to anatomy location of lesion. Cardiology recommended medical management and started patient on Imdur. She will eventually need to have PCI of the RCA when she can have TA PT for 1 year. Gynecology consulted for postmenopausal bleeding after pelvic ultrasound was abnormal. Cardiology recommended starting Plavix 1 gynecology workup for postmenopausal bleeding was complete in case there any procedures necessary. Gynecology performed endometrial biopsy. Patient did have some mild acute kidney injury following the heart catheterization cathy
== END 2022-01-16 18:35 | disposition home or self-care (01) | DRG 952 ==
LOC: ANHED 08:50 → ANHIMU 09:12 → ANH3MEDSUR 01-14 18:03
PROVIDERS: Internal Medicine Cardiovascular Disease; Nurse Practitioner; Physician Assistant; Admitting Provider Hospitalist; Emergency Provider Emergency Medicine; Visit Provider Student in an Organized Health Care Education/Training Program
PROC: 4A023N7 Measurement of Cardiac Sampling and Pressure, Left Heart, Percutaneous Approach (ICD-10-PCS; CPT 93452; principal; 2022-01-09 11:30)
PROC: 02703ZZ Dilation of Coronary Artery, One Artery, Percutaneous Approach (ICD-10-PCS; CPT 92920; 2022-01-09 11:30)
PROC: 4A023N7 Measurement of Cardiac Sampling and Pressure, Left Heart, Percutaneous Approach (ICD-10-PCS; CPT 36140; 2022-01-09 11:30)
DX: I21.4 Non-ST elevation (NSTEMI) myocardial infarction (principal); I16.1 Hypertensive emergency; Z91.19 Patient's noncompliance with other medical treatment and regimen; Z20.822 Contact with and (suspected) exposure to COVID-19; J44.9 Chronic obstructive pulmonary disease, unspecified; N17.9 Acute kidney failure, unspecified; I50.23 Acute on chronic systolic (congestive) heart failure; I13.0 Hypertensive heart and chronic kidney disease with heart failure and stage 1 through stage 4 chronic kidney disease, or unspecified chronic kidney disease; R93.89 Abnormal findings on diagnostic imaging of other specified body structures; R91.1 Solitary pulmonary nodule; F32.9 Major depressive disorder, single episode, unspecified; F41.9 Anxiety disorder, unspecified; N18.9 Chronic kidney disease, unspecified; Z72.0 Tobacco use; R73.9 Hyperglycemia, unspecified; Z79.899 Other long term (current) drug therapy; Z79.82 Long term (current) use of aspirin; I25.10 Atherosclerotic heart disease of native coronary artery without angina pectoris; N95.0 Postmenopausal bleeding; Z82.49 Family history of ischemic heart disease and other diseases of the circulatory system
CPT/HCPCS: 36140; 36415; 71045; 71275; 74175; 76830; 76856; 80048; 80053; 83036; 83690; 83735; 84439; 84443; 84481; 84484; 85025; 85027; 85055; 85610; 85730; 88305; 92920; 93005; 93306; 93458; 94640; 96374; 96375; 99285; A9270; C1769; C1887; C1894; C9803; J0360; J0583; J1644; J1650; J1940; J2250; J2270; J2405; J3010; J7030; J7040; Q9967; U0003; U0005

== ENCOUNTER 2022-02-18 00:12 | Day surgery (SDC) | payer OTHER, SELFPAY ==
[2022-02-13 11:02] VITALS: BMI 31.7
--- NOTE | 2022-02-13 11:10 | PC.NURSE ---
Report to the Outpatient Waiting Room, entrance under the green pavilion located off [facility], at time 1000 on date 02/18/22. OR Time: 1200. - You and your visitor will be asked a series of questions to screen for COVID 19 for your protection. - Only one visitor is allowed at this time. - The patient visitor is requested to leave or wait in car when not with patient. - A mask is required within the hospital. Patients may have clear liquids (water, carbonated beverages, clear teas, apple juice) until 3 hours prior to surgery with a maximum of 20 ounces. - No food from midnight until time of surgery Take the following medications with a SIP of water the morning of surgery: AMLODIPINE, METOPROLOL Medications to discontinue per physician: ASPIRIN Date to take last dose: PER DR. CAICEDO Please no make-up, nail urdu, hairspray, perfume, deodorant, or body powder the day of surgery. No jewelry (including any body piercings) or valuables the day of surgery, leave them at home. Please take a shower or bath the night before, or the morning of, surgery with an antibacterial soap. Wear comfortable, loose fitting clothing. - Jewelry must be removed prior to entering the operating room. Rings and piercings that are not removed may be cut off. - The hospital will not accept responsibility for valuables. - Please leave all valuables, including medications, at home the day of surgery. If you are going home after surgery, a licensed clamp truck driver must drive you home. - NO public transportation without another adult. - We recommend that an adult stay with you for 24 hours following discharge. - We also recommend that you do not drive, make important decision, drink alcoholic beverages, or take any drugs that were not prescribed by your health care provider for at least 24 hours after your discharge time. Follow any additional instructions given to you from your surgeon. If you or anyone in your household have experienced Covid symptoms in the past week, please notify your surgeon or the nurse liaison at the phone number below for possible testing. Telephone instructions given to PT - EFREM VELASCO and asked if any additional questions and then verbalized understanding. Patient advised to call surgeon office or pre surgery nurse liaison [phone] if any additional questions.
[2022-02-18 10:00] VITALS: BP 226/81; PULSE 69; RESP 16; TEMP 36.8; O2SAT 97
--- NOTE | 2022-02-18 10:01 | WPDANESEPPF ---
Anes - Initial Pre Proc Eval Procedure: Operation Date: 02/18/22 12:00 Proposed Procedures p Hysteroscopy Dilation and Curettage - Anselmo Wolfe MD Date/Time: 02/18/22 10:01 Surgeon: Anselmo Wolfe MD Pre Op Diagnosis: Post Menopausal Bleeding Patient Data Age: 56 Gender: F Height: 1.63 m Weight: 83.91 kg Allergies Allergy/AdvReac Type Severity Reaction Status Date / Time No Known Drug Allergies Allergy Other Verified 02/13/22 11:01 Home Medications Medication Instructions Recorded Confirmed Type amlodipine 5 mg tablet (Norvasc) 10 mg PO QAM #30 tabs 01/16/22 02/13/22 Rx aspirin 81 mg tablet,delayed 81 mg PO QAM #30 tabs 01/16/22 02/13/22 Rx release atorvastatin 20 mg tablet 20 mg PO DAILY #30 tabs 01/16/22 02/13/22 Rx furosemide 40 mg tablet 20 mg PO DAILY #30 tabs 01/16/22 02/13/22 Rx isosorbide mononitrate 60 mg 60 mg PO QAM #30 tabs 01/16/22 02/13/22 Rx tablet,extended release 24 hr losartan 50 mg tablet (Cozaar) 50 mg PO DAILY #30 tabs 01/16/22 02/13/22 Rx metoprolol tartrate 25 mg tablet 25 mg PO Q12HR #60 tabs 01/16/22 02/13/22 Rx umeclidinium 62.5 mcg/actuation 1 inh inhalation DAILYRT #30 ea 01/16/22 02/13/22 Rx blister powder for inhalation (Incruse Ellipta) ECG: Date of Service: 01/09/22 Procedure(s): CA 12 lead EKG Accession Number(s): [id number] cc: ~ ? Measurements Intervals? [place]? Rate: ? 55 ? P:? 78 ME: ? 139? QRS:? 102 QRSD: ? 102? T:? 180 QT: ? 494? QTc:? 476? Interpretive Statements SINUS BRADYCARDIA RIGHT AXIS DEVIATION POSSIBLE LEFT ATRIAL ENLARGEMENT LEFT VENTRICULAR HYPERTROPHY WITH ST-T CHANGE ST-T WAVE ABNORMALITY IN ANTEROLAT/INF LEADS- CONSIDER ISCHEMIA BASELINE WANDER- V5 ABNORMAL ECG Electronically Signed On 01-09-2022 12:27:10 CDT by Thom Jay D.O. Other studies: Admit Date: ? ? 01/08/2022 Exam Type: ? ? CA echo doppler color flow Summary ? 1. Complete two-dimensional, color flow and Doppler transthoracic echocardiogram is performed. ? 2. Main pulmonary artery dimension is at the dilated. ? 3. Left ventricular systolic function is mildly reduced, estimated at 40-45%. ? 4. There is severely increased left ventricular wall thickness. ? 5. The left ventricular diastolic function is grade II diastolic dysfunction. ? 6. Global longitudinal strain is abnormal at -7 %. ? 7. The inferior wall, basal inferolateral wall, and mid inferolateral wall are hypokinetic. ? 8. Left atrial chamber dimension is moderately enlarged. ? 9. Right atrial chamber dimension is mildly enlarged. ? 10. There is mild aortic valve regurgitation. ? 11. There is mild mitral valve regurgitation. ? 12. There is mild tricuspid valve regurgitation. ? 13. Moderate pulmonary hypertension, estimated pulmonary arterial systolic pressure is 54 mmHg. ? 14. There is mild pulmonic regurgitation. ? 15. Strain analysis performed. Patient hx anesthesia problems: none Family hx anesthesia problems: none Results Review: All pre-operative results and documents have been reviewed as part of the pre-operative evaluation. [facility] Past Medical History Medical History Abnormal echocardiogram Echocardiogram in October 29 showed low normal LV systolic function with an EF estimated 50 to 55%, severely increased LV wall thickness, grade 2 diastolic dysfunction, speckled/hyperechoic pattern of myocardium, consider infiltrative cardiomyopathy, mild aortic/mitral,/tricuspid regurgitation, and mild pulmonary hypertension with a PASP of 40 mmHg. Abnormal vaginal bleeding with endometrial thickness greater than 5 mm present on transvaginal ultrasound in postmenopausal patient Acute on chronic systolic (congestiv
[2022-02-18] MEDS: ACETAMINOPHEN 500 MG TABLET 1000 MG PO (10:10)
[2022-02-18] MEDS: LACTATED RINGERS 1,000 ML 30 ML IV CONT (10:10)
--- NOTE | 2022-02-18 11:26 | PM.IMHP ---
H&P: HPI History of Present Illness Date/Time: 02/18/22 11:26 Chief Complaint: Bleeding Narrative: 56 y/o who had had no vaginal bleeding since her forties, until a recent episode of light bleeding. Ultrasound showed a 10 mm EMC, and an endometrial biopsy showed scant atypical mucinous epithelium. She is here for further evaluation with hysteroscopy / D&C. Review of Systems Review of Systems: All systems reviewed & are unremarkable except as noted in HPI and below PMFSH Past Medical History Medical History Abnormal echocardiogram Echocardiogram in October 29 showed low normal LV systolic function with an EF estimated 50 to 55%, severely increased LV wall thickness, grade 2 diastolic dysfunction, speckled/hyperechoic pattern of myocardium, consider infiltrative cardiomyopathy, mild aortic/mitral,/tricuspid regurgitation, and mild pulmonary hypertension with a PASP of 40 mmHg. Abnormal vaginal bleeding with endometrial thickness greater than 5 mm present on transvaginal ultrasound in postmenopausal patient Acute on chronic systolic (congestive) heart failure Anxiety Bipolar disorder COPD (chronic obstructive pulmonary disease) Coronary artery disease Severe coronary artery disease with occlusion of the circumflex following the 1st OM branch and high-grade disease in several locations of the RCA. Depression Hypertension Mediastinal lymphadenopathy Non-STEMI (non-ST elevated myocardial infarction) Pulmonary nodule Tobacco abuse Tobacco use Surgical History Surgical History History of cardiac catheterization (09/09/10) Angiographically very mild coronary artery disease on catheterization per Dr. Perales. History of tooth extraction Full mouth extraction History of tubal ligation Family History Family History Father COPD (chronic obstructive pulmonary disease) Acute myocardial infarction Mother Acute myocardial infarction Social History Social History Social History: Surrogate decision maker: Willie Varela, son. Code status: Full code. Smoking packs per day: 0.5 Smoking cigarettes per day: 10.0 Years smoked: 40 Smoking pack-years: 20.00 Smoking status: Current every day smoker Tobacco type: cigarettes Alcohol intake: never Substance use: never Substance use type: does not use Other substance usage details: Occasional marijuana use. Living arrangements: with family Spiritual care concerns: No Meds Home Medications and Allergies Home Medications Medication Instructions Recorded Confirmed Type amlodipine 5 mg tablet (Norvasc) 10 mg PO QAM #30 tabs 01/16/22 02/13/22 Rx aspirin 81 mg tablet,delayed 81 mg PO QAM #30 tabs 01/16/22 02/13/22 Rx release atorvastatin 20 mg tablet 20 mg PO DAILY #30 tabs 22 02/13/22 Rx furosemide 40 mg tablet 20 mg PO DAILY #30 tabs 22 02/13/22 Rx isosorbide mononitrate 60 mg 60 mg PO QAM #30 tabs 01/16/22 02/13/22 Rx tablet,extended release 24 hr losartan 50 mg tablet (Cozaar) 50 mg PO DAILY #30 tabs 22 02/13/22 Rx metoprolol tartrate 25 mg tablet 25 mg PO Q12HR #60 tabs 01/16/22 02/13/22 Rx umeclidinium 62.5 mcg/actuation 1 inh inhalation DAILYRT #30 ea 01/16/22 02/13/22 Rx blister powder for inhalation (Incruse Ellipta) Allergies Allergy/AdvReac Type Severity Reaction Status Date / Time No Known Drug Allergies Allergy Other Verified 02/18/22 10:23 Vital Signs Vital Signs - 24 hr 02/18/22 10:00 Temperature 36.8 C Pulse Rate 69 Respiratory Rate 16 Blood Pressure 226/81 H Pulse Oximetry 97 Oxygen Delivery Room Air Exam Const: Orientation/consciousness: patient oriented x3 Other: Well-developed, well-nourished female in no acute distress. Neck: Thyroid: thyroid normal Lymphatic: no lymphadenopathy noted (in ne
--- NOTE | 2022-02-18 12:03 | WPDHPUPDATE1 ---
History and Physical Update Update Date/Time: 02/18/22 12:03 History and Physical has been reviewed, including an updated exam of the patient. There are NO changes in the patient's condition. Risks, benefits, and alternatives have been discussed and questions answered. Patient agrees to proceed with procedure.
--- NOTE | 2022-02-18 12:33 | PM.OP ---
Procedure Note - Brief Procedure Note - Brief Date of procedure: 02/18/22 Pre-op diagnosis: Post Menopausal Bleeding Postmenopausal vaginal bleeding Post-op diagnosis: Same Procedure performed: Hysteroscopy Dilation and sharp curettage Description of procedure: The patient was taken to the operating room where she was prepared and draped in the usual sterile fashion in the dorsal lithotomy position. The bladder was drained with a red rubber catheter. A sterile speculum was placed into the vagina. The anterior lip of the cervix was grasped with single-tooth tenaculum. Ten mL of 1% lidocaine was administered in a paracervical block. The cervix was then gently dilated using Hegar dilators until an 8 mm dilator could be passed. Hysteroscopy was performed using sterile saline as a distention medium. Findings are as noted above. Sharp curettage was then performed, and endometrial curettings were collected on a Telfa pad and passed off to be sent to pathology. Hemostasis was excellent. Sponge, lap, needle and instrument counts were correct. The patient was awakened and taken to the recovery room in stable condition. I was present and scrubbed through the entire procedure. Implants: None Anesthesia: MAC and local (1% lidocaine) Surgeon: Anselmo Wolfe MD Estimated blood loss (mL): 5 Drains: No Packing: No Pathology: Yes (Endometrial curettings) Complications: None Condition: Stable Disposition: PACU Findings: Atrophic endometrium, no masses seen. Both tubal ostia seen.
[2022-02-18 12:35] VITALS: BP 150/95; PULSE 72; RESP 15; O2SAT 98
[2022-02-18 13:05] VITALS: BP 235/116; PULSE 67
[2022-02-18] MEDS: hydrALAZINE HCL 20 MG/ML VIAL 10 MG IV PUSH ×2 (13:08→13:45)
--- NOTE | 2022-02-18 13:12 | SUR.PHASEII ---
1305- pt BP 235/116, HR 67. Called Dr. Estrada and updated on elevated BP. Pt stated BP elevated all the time. Pre Op BP was 226/81. Pt did not take any medications this morning. He stated to give hydralazine 10 mg IVP.
[2022-02-18] MEDS: oxyCODONE HCL (*CRX) 5 MG TAB IR PO (13:16)
[2022-02-18 13:35] VITALS: BP 196/84; PULSE 80
--- NOTE | 2022-02-18 13:41 | SUR.PHASEII ---
1335- Spoke with Dr. Sean weems pt BP 196/84. HR 80. He stated to given hydralazine 10 mg IVP.
[2022-02-18 13:55] VITALS: BP 158/60; PULSE 75
[2022-02-18 14:10] VITALS: BP 190/72; PULSE 82
--- NOTE | 2022-02-18 14:17 | SUR.PHASEII ---
1410- Pt BP 158/60, resting in recliner. Pt up to get dressed and BP 190/72. Pt decided to take PO Metorprolol before leaving recovery. Requested pt to take BP at home or [facility] and record it and call embroidery cutter with results. Requested pt start medications on normal schedule.
== END 2022-02-18 14:10 | disposition home or self-care (01) ==
PROVIDERS: Visit Provider Obstetrics & Gynecology
PROC: 0U5B8ZZ Destruction of Endometrium, Via Natural or Artificial Opening Endoscopic (ICD-10-PCS; CPT 58563; principal; 2022-02-18 12:00)
DX: N95.0 Postmenopausal bleeding (principal); N85.8 Other specified noninflammatory disorders of uterus; Z79.51 Long term (current) use of inhaled steroids; Z79.82 Long term (current) use of aspirin; J44.9 Chronic obstructive pulmonary disease, unspecified; I25.10 Atherosclerotic heart disease of native coronary artery without angina pectoris; I15.0 Renovascular hypertension; I50.23 Acute on chronic systolic (congestive) heart failure; I25.2 Old myocardial infarction; F41.9 Anxiety disorder, unspecified; F31.9 Bipolar disorder, unspecified; F17.210 Nicotine dependence, cigarettes, uncomplicated; E66.9 Obesity, unspecified; Z68.31 Body mass index [BMI] 31.0-31.9, adult; F12.90 Cannabis use, unspecified, uncomplicated
CPT/HCPCS: 58558; 88305; A9270; J0360; J1100; J2250; J2704; J3010; J7030; J7120

== ENCOUNTER 2022-07-30 13:56 | Outpatient (CLI) | payer OTHER, SELFPAY ==
[2022-07-30 14:52] LABS: Anion Gap 8 mmol/L (8-16); Blood Urea Nitrogen 19 mg/dL (7-17); Calcium 9.2 mg/dL (8.4-10.2); Carbon Dioxide 30 mmol/L (22-30); Chloride 106 mmol/L (98-107); Estimated Glomerular Filt Rate 51; Glucose 118 mg/dL (65-110); Potassium 4.7 mmol/L (3.4-5.0); Sodium 144 mmol/L (137-145)
== END 2022-07-30 13:57 | disposition home or self-care (01) ==
LOC: ANHLAB 13:57
PROVIDERS: Visit Provider Nurse Practitioner
DX: I42.0 Dilated cardiomyopathy (principal)
CPT/HCPCS: 36415; 80048

== ENCOUNTER 2022-08-06 14:09 | Outpatient (CLI) | payer OTHER, SELFPAY ==
--- NOTE | ~2022-08-06 | US_ITS ---
EXAMINATION: US arterial duplex LE DATE: 08/06/2022 16:15 INDICATION: Atherosclerosis of [place] arteries of extremities with intermittent claudication. TECHNIQUE: Multiple grayscale and Doppler ultrasound images of the lower limb arteries were obtained. COMPARISON: CTA chest and abdomen 01/08/2022 FINDINGS: Peak systolic velocity is 67 cm/s in right common femoral artery, 68 cm/s in deep femoral a rtery, 43 cm/s in proximal superficial femoral artery, 74 cm/s in mid superficial femoral artery, 56 cm/s in distal superficial femoral artery, 75 cm/s in popliteal artery, 15 cm/s in posterior tibial a rtery, 30 cm/s in peroneal artery, 29 cm/s in anterior tibial artery, and 30 cm/s in dorsalis pedis. Peak systolic velocity is 173 cm/s in left common femoral artery and 135 cm/s in deep femoral artery. Proximal to distal left superficial femoral artery is totally occluded. Peak systolic velocity is 29 cm/s in popliteal artery, 21 cm/s in posterior tibial artery, 15 cm/s in peroneal artery, 29 cm/s in anterior tibial artery, and 21 cm/s in dorsalis pedis. IMPRESSION: 1. Asymmetrically decreased peak systolic velocity in right common femoral artery, consistent with mo derate to severe stenosis in a right pelvic artery. 2. Increased velocity gradient between right popliteal artery and the lower leg arteries, consistent with moderate to severe stenosis. 3. Total occlusion of left superficial femoral artery with reconstitution of flow in popliteal artery . Reviewed, dictated and finalized at location A. HOUSE SUPERVISOR IMPRESSION: 1. Asymmetrically decreased peak systolic velocity in right common femoral morena ry, consistent with moderate to severe stenosis in a right pelvic artery. 2. Increased velocity gradient between right popliteal artery and the lower leg arteries, consistent with moderate to severe stenosis. 3. Total occlusion of left superficial femoral artery with reconstitution of fl ow in popliteal artery.
== END 2022-08-06 14:10 | disposition home or self-care (01) ==
LOC: ANHIMG 14:13
PROVIDERS: Visit Provider Internal Medicine Cardiovascular Disease
DX: I70.213 Atherosclerosis of native arteries of extremities with intermittent claudication, bilateral legs (principal)
CPT/HCPCS: 93925

== ENCOUNTER 2022-12-26 14:40 | Emergency (ER) | payer OTHER, SELFPAY ==
--- NOTE | ~2022-12-26 | XR_ITS ---
EXAMINATION: XR chest 2V DATE: 12/26/2022 15:09 INDICATION: Cough TECHNIQUE: PA and lateral views of the chest were obtained. COMPARISON: Chest radiograph and CT dated 01/08/2022 FINDINGS: There is blunting at the costophrenic angles and posterior sulci consistent with very small bilateral pleural effusions. No other airspace opacities, pulmonary edema or pneumothorax. Mild cardiomegaly. Mild thoracic spondylosis. Electronic device projects over the left pectoral region, unclear whether subcutaneous or external to the patient. IMPRESSION: 1. Very small bilateral pleural effusions. Reviewed, dictated and finalized at location A.
--- NOTE | ~2022-12-26 | CT_ITS ---
CT of the Abdomen and Pelvis: Indication: Abdominal pain Technique: 2.5 mm axial scans were obtained through the abdomen and pelvis following intravenous adm inistration of 100 cc of Omnipaque 350. Dose reduction technique was used on this scan by utilizing a utomated exposure control and iterative reconstruction technique. The dose-length product (DLP) was 1 426.66 mGy-cm. COMPARISON: 6 01/08/2022 Findings: Scans through the lung bases demonstrates stable 3 mm right middle lobe pulmonary nodule. There is medial left basilar pulmonary nodule or atelectatic change measuring up to 6 mm. The liver, spleen, pancreas, adrenals and kidneys are within normal limits. Stable calcified gallston e. There are atherosclerotic calcifications of the aorta. No lymphadenopathy. No bowel obstruction or bowel wall thickening. There is no evidence to suggest acute appendicitis. Images through the pelvis were performed. Urinary bladder unremarkable. No adnexal mass seen. No asci genaro. Impression: Cholelithiasis. Medial left basilar pulmonary nodule versus atelectatic change. Given size of possible nodule, accord ing to Fleischner Society criteria, for a low-risk patient, recommend 6-12 month follow-up CT, then c onsider 18-[address] For a high-risk patient, follow-up CT scans at 6-12 months, and at 18-24 amanda hs, is recommended. Reviewed, dictated and finalized at [facility]. Impression: Cholelithiasis. Medial left basilar pulmonary nodule versus atelectatic change. Given size of p ossible nodule, according to Fleischner Society criteria, for a low-risk patien t, recommend 6-12 month follow-up CT, then consider 18-[address] For a high- risk patient, follow-up CT scans at 6-12 months, and at 18-24 months, is recomm ended.
[2022-12-26 14:45] VITALS: BP 180/108; PULSE 89; RESP 20; TEMP 36; O2SAT 99
[2022-12-26 15:40] LABS: Basophils Absolute Auto 0.1 K/mm3 (0.0-0.1); Basophils Percent Auto 0.8 % (0.2-1.2); Eosinophils Absolute Auto 0.1 K/mm3 (0-0.3); Eosinophils Percent Auto 0.8 % (0-4.4); Hematocrit 51.7 % (37.0-47.0); Immature Granulocyte Absolute 0.04 K/mm3 (0.00-0.031); Immature Granulocyte Percent A 0.5 % (0-0.5); Lymphocytes Absolute Auto 1.59 K/mm3 (0.9-3.2); Lymphocytes Percent Auto 21.2 % (18.3-44.2); Mean Corpuscular HGB Conc 30.9 g/dl (32-36); Mean Corpuscular Hemoglobin 29.5 pg (26-34); Mean Corpuscular Volume 95.2 fl (80-100); Mean Platelet Volume 12.3 fl (7.4-10.4); Monocytes Absolute Auto 0.6 K/mm3 (0.1-0.6); Monocytes Percent Auto 8.4 % (2.6-8.5); Neutrophils Absolute Auto 5.1 K/mm3 (1.3-6.7); Neutrophils Percent Auto 68.3 % (45.5-73.1); Platelet Count Result 204 k/mm3 (150-375); Red Blood Count 5.43 M/mm3 (4.2-5.4); Red Cell Distribution Width 13.8 % (11.5-14.5); White Blood Count 7.5 K/mm3 (4.5-10.0)
[2022-12-26 15:47] LABS: Alanine Aminotransferase 17 U/L (6-35); Albumin Level 4.4 g/dL (3.5-5.1); Alkaline Phosphatase 92 U/L (38-126); Anion Gap 7 mmol/L (8-16); Aspartate Amino Transferase 21 U/L (14-36); Bilirubin,Total 0.5 mg/dL (0.2-1.3); Blood Urea Nitrogen 16 mg/dL (7-17); Calcium 9.4 mg/dL (8.4-10.2); Carbon Dioxide 28 mmol/L (22-30); Chloride 105 mmol/L (98-107); Estimated CRCL calculation 65 ml/min; Estimated Glomerular Filt Rate > 60; Glucose 153 mg/dL (65-110); Lipase 64 U/L (23-300); Potassium 3.5 mmol/L (3.4-5.0); Sodium 140 mmol/L (137-145)
[2022-12-26 16:48] LABS: Appearance Urine Cloudy (Clear); Bacteria Urine 1+ /hpf; Bilirubin Urine Negative (Negative); Blood Urine Trace (Negative); Color Urine Yellow (Yellow); Glucose Urine UA Negative (Negative); Ketones Urine Negative (Negative); Leukocyte Esterase Ur Trace LEU/UL (Negative); Nitrate Urine Negative (Negative); Non Pathogenic Casts 0-2; Protein Urine 1+ mg/dL (Negative); RBC Urine 0-2 /hpf (0-2); Specific Grav Ur 1.019 (1.001-1.035); Squamous Epithelial Cell Urine Moderate /hpf (Few); pH Urine 5.5 (5.0-9.0)
[2022-12-26 16:49] LABS: Add Urine Microscopic? YES
--- NOTE | 2022-12-26 17:05 | ED.ABDPAIN ---
HPI - Abdominal Pain General Chief Complaint: Abdominal Pain Stated Complaint: side pain Time Seen by Provider: 12/26/22 16:09 History of Present Illness HPI narrative: Patient reporting some pain to her right abdomen that feels almost like a pulled muscle deep inside, with some nausea, this is never happened before, denies any recent trauma or heavy lifting. Related Data Allergies Allergy/AdvReac Type Severity Reaction Status Date / Time No Known Drug Allergies Allergy Other Verified 02/18/22 10:23 Review of Systems Review of Systems: CONST: No fever. HEENT: No sore throat C/V: No chest pain RESP: No cough GI: Reports abdominal pain, nausea : No dysuria. M/S: No joint pain. SKIN: No rash. NEURO: [No headache or focal numbness or weakness] PSYCH: [No depression] [facility] Past Medical History Medical History Abnormal echocardiogram Echocardiogram in October 29 showed low normal LV systolic function with an EF estimated 50 to 55%, severely increased LV wall thickness, grade 2 diastolic dysfunction, speckled/hyperechoic pattern of myocardium, consider infiltrative cardiomyopathy, mild aortic/mitral,/tricuspid regurgitation, and mild pulmonary hypertension with a PASP of 40 mmHg. Abnormal vaginal bleeding with endometrial thickness greater than 5 mm present on transvaginal ultrasound in postmenopausal patient Acute on chronic systolic (congestive) heart failure Anxiety Bipolar disorder COPD (chronic obstructive pulmonary disease) Coronary artery disease Severe coronary artery disease with occlusion of the circumflex following the 1st OM branch and high-grade disease in several locations of the RCA. Depression Hypertension Mediastinal lymphadenopathy Non-STEMI (non-ST elevated myocardial infarction) Pulmonary nodule Tobacco abuse Tobacco use Surgical History Surgical History History of cardiac catheterization (09/09/10) Angiographically very mild coronary artery disease on catheterization per Dr. Perales. History of tooth extraction Full mouth extraction History of tubal ligation Family History Family History Father COPD (chronic obstructive pulmonary disease) Acute myocardial infarction Mother Acute myocardial infarction Social History Social History Social History: Surrogate decision maker: Willie Varela, judi. Code status: Full code. Smoking packs per day: 0.5 Smoking cigarettes per day: 10.0 Years smoked: 40 Smoking pack-years: 20.00 Smoking status: Current every day smoker Tobacco type: cigarettes Alcohol intake: never Substance use: never Substance use type: does not use Other substance usage details: Occasional marijuana use. Living arrangements: with family Spiritual care concerns: No Exam Narrative: EXAMINATION OF ORGAN SYSTEMS/BODY AREAS: Constitutional: Vital signs per nursing GENERAL:[No acute distress, non-toxic appearing.] HEAD: Normal with no signs of head trauma. EYES: EOMI, conjunctiva normal ENT: Hearing grossly intact LUNGS: Nonlabored breathing. HEART: [Regular rate and rhythm] ABD: [Soft], [nontender to palpation] EXT: Normal range of motion SKIN: [No rashes or lesions.] NEURO: [Alert and oriented x 3. No gross focal sensory or strength deficits.] PSYCH: Normal affect Course Vital Signs Vital signs: Vital Signs Temperature 96.8 F L 12/26/22 14:45 Pulse Rate 89 12/26/22 14:45 Respiratory Rate 20 12/26/22 14:45 Blood Pressure 180/108 H 12/26/22 14:45 Pulse Oximetry 99 12/26/22 14:45 Oxygen Delivery Room Air 12/26/22 14:45 Temperature 96.8 F L 12/26/22 14:45 Pulse Rate 78 12/26/22 17:52 Respiratory Rate 19 12/26/22 17:52 Blood Pressure 190/103 H 12/26/22 17:52 Pulse Oximetry 97 12/26/22 17:52 Oxygen Delivery Room Air 12/26/22 14:45
[2022-12-26 17:52] VITALS: BP 190/103; PULSE 78; RESP 19; O2SAT 97
== END 2022-12-26 18:15 | disposition home or self-care (01) ==
PROVIDERS: Emergency Medicine; Emergency Provider Emergency Medicine
DX: K80.20 Calculus of gallbladder without cholecystitis without obstruction (principal); R11.2 Nausea with vomiting, unspecified; R91.1 Solitary pulmonary nodule; R10.9 Unspecified abdominal pain; J44.9 Chronic obstructive pulmonary disease, unspecified; I10 Essential (primary) hypertension; I25.2 Old myocardial infarction; F17.210 Nicotine dependence, cigarettes, uncomplicated
CPT/HCPCS: 36415; 71046; 74177; 80053; 81001; 83690; 85025; 87086; 87088; 99284; Q9967

== ENCOUNTER 2023-02-17 19:58 | Emergency (ER) | payer OTHER, SELFPAY ==
[2023-02-17] VITALS (11 sets, daily range): BP systolic 181–230; BP diastolic 85–128; PULSE 84–98; RESP 14–22; TEMP 36.7; O2SAT 96–100
--- NOTE | ~2023-02-17 | XR_ITS ---
EXAMINATION: XR chest 2V Exam Date/Time: 02/17/2023 20:40 CDT HISTORY: SOB HAD A STROKE IN SEPTEMBER, HX COPD Comparison: 12/26/2022. RESULT: Lines, tubes, and devices: None. Lungs and pleura: Clear. Cardiomediastinal silhouette: Stable. Other: No acute osseous or upper abdominal finding. IMPRESSION: No acute cardiopulmonary process. Reviewed, dictated and finalized at location K.
--- NOTE | ~2023-02-17 | CT_ITS ---
EXAMINATION: CTA brain carotid DATE: 02/17/2023 21:37 INDICATION: visual changes, facial droop TECHNIQUE: Computed tomographic angiography (CTA) of the head was performed without and with 100 mL O mnipaque-350 intravenous contrast. CTA of the neck was performed with intravenous contrast. Automated exposure control and iterative reconstruction technique were employed. The dose-length product was 1 749.99 mGy-cm. Maximum intensity projection and volume rendered 3D-reconstructions were created by th e technologist on a separate workstation. COMPARISON: CT brain 10/26/2021. FINDINGS: CT BRAIN: No acute large vessel infarct, intracranial hemorrhage, mass, or hydrocephalus. Moderate chronic whit e matter changes. Symmetric parenchymal enhancement. Patent cerebral veins. CTA HEAD: No large vessel occlusion, aneurysm, high flow vascular malformation, nidus or extravasation. Moderat e calcifications in the petrous and cavernous carotids bilaterally, causing mild stenoses bilaterally . Persistent origin of the left posterior cerebral artery. Calcified plaques in the bilateral i ntradural vertebral arteries, with severe short segment stenosis of the left vertebral artery as it e nters the intradural space. CTA NECK: Aortic arch and proximal great vessels: Atherosclerotic calcifications at the visualized aortic arch and proximal great vessels. Calcified and noncalcified plaques cause moderate narrowing of the origin and proximal left subclavian artery Right common carotid, carotid bifurcation, and internal carotid artery: Calcified plaque at the bifur cation.There is 0% stenosis of the proximal right internal carotid artery relative to normal distal a rtery lumen diameter (NASCET criteria). Left common carotid, carotid bifurcation, and internal carotid artery: Calcified plaque at the bifurc ation.There is 37% stenosis of the proximal left internal carotid artery relative to normal distal ar kellee lumen diameter (NASCET criteria). Vertebral arteries: Multiple calcified and noncalcified plaques narrow the left vertebral artery at m ultiple points along its course, causing mild stenoses. Calcified plaques at the distal right vertebr al artery at the level of C1 causing mild stenoses. The right vertebral artery is dominant. Other findings: Multiple subcentimeter right upper lobe pulmonary nodules. IMPRESSION: 1. No acute large vessel infarct. 2. No large vessel occlusion. 3. Moderate chronic white matter changes. 4. Severe short segment stenosis of the left intradural vertebral artery. 5. 37% stenosis of the left internal carotid artery at the bifurcation. 6. Severe stenoses at the origin and proximal left subclavian artery. 7. Multiple right upper lobe pulmonary nodules, no routine follow-up recommended unless the patient i s at high risk, in which case consider an optional CT at 12 months. Reviewed, dictated and finalized at location K. IMPRESSION: 1. No acute large vessel infarct. 2. No large vessel occlusion. 3. Moderate chronic white matter changes. 4. Severe short segment stenosis of the left intradural vertebral artery. 5. 37% stenosis of the left internal carotid artery at the bifurcation. 6. Severe stenoses at the origin and proximal left subclavian artery. 7. Multiple right upper lobe pulmonary nodules, no routine follow-up recommende d unless the patient is at high risk, in which case consider an optional CT at 12 months.
--- NOTE | 2023-02-17 19:59 | ECG_ITS ---
Measurements Intervals [place] Rate: 94 P: 54 CA: 172 QRS: 75 QRSD: 106 T: 142 QT: 389 QTc: 488 Interpretive Statements SINUS RHYTHM POSSIBLE LEFT ATRIAL ENLARGEMENT [-0.1mV P WAVE IN V1/V2] ST DEVIATION AND MODERATE T-WAVE ABNORMALITY, CONSIDER LATERAL ISCHEMIA [-0.1+ mV T WAVE IN I/aVL/V5/V6] ST DEVIATION AND MODERATE T-WAVE ABNORMALITY, CONSIDER INFERIOR ISCHEMIA [-0.1+ mV T WAVE IN II/aVF] COMPARED TO ECG 01/09/2022 09:25:10 SINUS RHYTHM NOW PRESENT Electronically Signed On 02-18-2023 9:08:49 CDT by Amber Chen M.D.
--- NOTE | 2023-02-17 20:41 | PC.NURSE ---
pt family wants contacted if pt. admitted jace [phone] neli [phone]
[2023-02-17 20:43] LABS: Basophils Absolute Auto 0.1 K/mm3 (0.0-0.1); Basophils Percent Auto 0.6 % (0.2-1.2); Eosinophils Absolute Auto 0.1 K/mm3 (0-0.3); Eosinophils Percent Auto 1.2 % (0-4.4); Hematocrit 52.9 % (37.0-47.0); Hemoglobin 16.9 g/dL (12.0-15.0); Immature Granulocyte Absolute 0.03 K/mm3 (0.00-0.031); Immature Granulocyte Percent A 0.3 % (0-0.5); Lymphocytes Absolute Auto 1.35 K/mm3 (0.9-3.2); Lymphocytes Percent Auto 15.6 % (18.3-44.2); Mean Corpuscular HGB Conc 31.9 g/dl (32-36); Mean Corpuscular Hemoglobin 29.4 pg (26-34); Mean Platelet Volume 11.8 fl (7.4-10.4); Monocytes Absolute Auto 0.6 K/mm3 (0.1-0.6); Monocytes Percent Auto 7.4 % (2.6-8.5); Neutrophils Absolute Auto 6.5 K/mm3 (1.3-6.7); Neutrophils Percent Auto 74.9 % (45.5-73.1); Platelet Count Result 180 k/mm3 (150-375); Red Blood Count 5.75 M/mm3 (4.2-5.4); Red Cell Distribution Width 13.2 % (11.5-14.5); White Blood Count 8.6 K/mm3 (4.5-10.0)
[2023-02-17 20:58] LABS: Alanine Aminotransferase 29 U/L (6-35); Albumin Level 4.4 g/dL (3.5-5.1); Alkaline Phosphatase 83 U/L (38-126); Anion Gap 7 mmol/L (8-16); Aspartate Amino Transferase 37 U/L (14-36); Bilirubin,Total 0.4 mg/dL (0.2-1.3); Blood Urea Nitrogen 17 mg/dL (7-17); Calcium 8.9 mg/dL (8.4-10.2); Carbon Dioxide 31 mmol/L (22-30); Chloride 102 mmol/L (98-107); Estimated Glomerular Filt Rate 51; Glucose 137 mg/dL (65-110); Sodium 140 mmol/L (137-145)
[2023-02-17 20:59] LABS: INR 0.9; Prothrombin Time 13.1 Seconds (11.1-14.7)
[2023-02-17 21:00] LABS: Partial Thromboplastin Time 26.7 SECONDS (22.3-36.8)
[2023-02-17] MEDS: NITROGLYCERIN SL 0.4 MG TABLET SUBLINGUAL (21:05)
--- NOTE | 2023-02-17 21:05 | PC.NURSE ---
2105 gave 1 nitro tab sl no cp 192/139
[2023-02-17 21:10] LABS: NT Pro B Type Natriuretic Pept 3460 pg/mL (19.9-100); Troponin I 0.018 ng/mL (0.000-0.034)
--- NOTE | 2023-02-17 21:13 | PC.NURSE ---
2109 second nitro given. bp 182/92
--- NOTE | 2023-02-17 21:14 | PC.NURSE ---
2114 [facility] nitro given
[2023-02-18] VITALS: BP 195/101; PULSE 87; RESP 16; O2SAT 97
[2023-02-18 00:06] LABS: Troponin I 0.033 ng/mL (0.000-0.034)
[2023-02-18 00:15] VITALS: BP 217/108; PULSE 85; RESP 13; O2SAT 98
[2023-02-18] MEDS: FUROSEMIDE INJ 40 MG/4 ML VIAL IV PUSH (00:25)
--- NOTE | 2023-02-18 00:28 | PC.NURSE ---
ERP aware of pt. repeat bp's elevated. no further orders at this time.
--- NOTE | 2023-02-18 16:59 | PC.NURSE ---
See downtime charting from 02/18/23 from 0045 til 1700pm.
[2023-02-18 20:41] VITALS: BP 164/92; PULSE 74; O2SAT 97
[2023-02-18 22:00] VITALS: BP 183/76; PULSE 77; O2SAT 98
[2023-02-19 15:38] LABS: Influenza A QL RT-PCR Negative (Negative); Influenza B QL RT-PCR Negative (Negative); SARS-CoV-2 RNA PCR Negative (Negative)
== END 2023-02-18 22:35 | disposition short-term general hospital (02) ==
PROVIDERS: Emergency Provider Emergency Medicine
DX: I70.8 Atherosclerosis of other arteries (principal); I65.02 Occlusion and stenosis of left vertebral artery; I65.22 Occlusion and stenosis of left carotid artery; G45.9 Transient cerebral ischemic attack, unspecified; R06.00 Dyspnea, unspecified; I11.9 Hypertensive heart disease without heart failure; R94.31 Abnormal electrocardiogram [ECG] [EKG]; R91.8 Other nonspecific abnormal finding of lung field
CPT/HCPCS: 36415; 70496; 70498; 71046; 80053; 83880; 84484; 85025; 85610; 85730; 87636; 93005; 96374; 99285; A9270; J0360; J1940; J2405; Q9967

== ENCOUNTER 2023-05-06 12:57 | Outpatient (CLI) | payer OTHER, SELFPAY ==
--- NOTE | ~2023-05-06 | CT_ITS ---
EXAMINATION: CTA abd aorta runoff DATE: 05/06/2023 13:44 INDICATION: Claudication bilateral lower extremities. TECHNIQUE: Computed tomographic angiography (CTA) of the abdominal, pelvis, and both lower extremitie s was performed with 150 mL Omnipaque-350 intravenous contrast. Automated exposure control and iterat pedro reconstruction technique were employed. The dose-length product was 1593.22 mGy-cm. Maximum inten sity projection 3D-reconstructions of the arteries were created by the technologist on a separate wor kstation. COMPARISON: CT abdomen and pelvis 12/26/2022 FINDINGS: ABDOMINAL AORTA AND ITS BRANCHES: There is calcified atherosclerosis of the aorta and many of the other arteries. There is no aortic an eurysm or dissection. There is mild stenosis of the axis and superior mesenteric artery. There is mil d stenosis of the renal arteries. There is total occlusion of inferior mesenteric artery with reconst itution. PELVIC VASCULATURE: There is mild stenosis of right common iliac artery and severe stenosis of right external iliac arter y. There is mild stenosis of right internal iliac artery. There is mild stenosis of left common iliac artery and left internal iliac artery. There is mild stenosis of left external iliac artery. RIGHT LOWER EXTREMITY VASCULATURE: There is total occlusion of right common femoral artery with reconstitution. There is no significant stenosis of profunda femoris. There is extensive moderate stenosis of right superficial femoral arter y and above-knee popliteal artery. There is no significant stenosis of tibioperoneal trunk, anterior tibial artery, or posterior tibial artery, which contributes collaterals beyond the ankle. There is t otal occlusion of proximal posterior tibial artery. LEFT LOWER EXTREMITY VASCULATURE: There is mild stenosis of left common femoral artery and left profunda femoris. There is total occlus ion of origin of left superficial femoral artery with reconstitution of flow in above-knee popliteal artery near the joint line. There is mild stenosis of tibioperoneal trunk. There is no significant st enosis of the anterior tibial artery, peroneal artery, or posterior tibial artery. ADDITIONAL FINDINGS: The visualized portions of the lung bases demonstrate mild atelectasis. No pleural effusion. Cardiome suresh is noted. No pericardial effusion. The liver is normal. There is a gallstone in the gallbladder which is normal in size. The spleen, pancreas, and adrenal glands are normal. There is cortical thinn ing of the kidneys. There is diverticulosis of the colon without evidence of diverticulitis. There ar e no dilated loops of bowel. The appendix is normal. There is no ascites. There are no pathologically enlarged lymph nodes. There is mild lumbar spondylosis. IMPRESSION: 1. 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 2. Total occlusion of right common femoral artery with reconstitution. 3. Extensive moderate stenosis of right superficial femoral artery and above-knee popliteal artery. 4. Total occlusion of right posterior tibial artery. Two-vessel runoff on the right. 5. Total occlusion of origin of left superficial femoral artery with reconstitution of flow in above- knee popliteal artery. Reviewed, dictated and finalized at location E. IMPRESSION: 1. 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 2. Total occlusion of right common femoral artery with reconstitution. 3. Extensive moderate stenosis of right superficial femoral artery and above-kn ee popliteal artery. 4. Total occlusion of right posterior tibial artery. Two-vessel runoff on the r ight. 5. Total occlusion of origin of left superficial femoral artery with reconstitu tion of flow in above-knee popliteal artery.
[2023-05-06 13:30] LABS: Estimated Glomerular Filt Rate 51
== END 2023-05-06 12:58 | disposition home or self-care (01) ==
PROVIDERS: Visit Provider Internal Medicine Cardiovascular Disease
DX: I73.9 Peripheral vascular disease, unspecified (principal); I77.1 Stricture of artery
CPT/HCPCS: 75635; Q9967

== ENCOUNTER 2023-05-13 16:57 | Emergency (ER) | payer OTHER, SELFPAY ==
--- NOTE | ~2023-05-13 | XR_ITS ---
EXAMINATION: XR chest 1V portable Exam Date/Time: 05/13/2023 21:20 CDT HISTORY: SOB, CHEST PAINS, HTN Comparison: 02/17/2023. RESULT: Lines, tubes, and devices: None. Lungs and pleura: Diffuse mild reticular opacities. Cardiomediastinal silhouette: Stable. Other: No acute osseous or upper abdominal finding. IMPRESSION: Mild interstitial edema. Reviewed, dictated and finalized at location K. IMPRESSION: Mild interstitial edema.
[2023-05-13 17:29] VITALS: BP 198/85; PULSE 76; RESP 16; TEMP 36.6; O2SAT 99
--- NOTE | 2023-05-13 21:09 | ECG_ITS ---
Measurements Intervals [place] Rate: 75 P: 51 AL: 157 QRS: 50 QRSD: 103 T: 161 QT: 402 QTc: 450 Interpretive Statements SINUS RHYTHM ANTERIOR INFARCT, AGE INDETERMINATE ST-T WAVE ABNORMALITY IN INF/LAT LEADS- CONSIDER ISCHEMIA ABNORMAL ECG COMPARED TO ECG 02/17/2023 20:17:23 MYOCARDIAL INFARCT FINDING NOW PRESENT Electronically Signed On 05-14-2023 7:05:54 CDT by Thom Jay D.O.
[2023-05-13 21:11] VITALS: PULSE 74; PULSE 76; RESP 18; TEMP 36.6; O2SAT 98
--- NOTE | 2023-05-13 21:12 | ED.SOB ---
HPI - SOB/Dyspnea General Chief Complaint: Extremity Injury, Lower Stated Complaint: leg pain/bloated Time Seen by Provider: 05/13/23 20:53 Source: patient Limitations: no limitations History of Present Illness HPI Narrative: Patient is a 58-year-old female present to the emergency department complaining of bilateral lower extremity swelling and shortness of breath both of which have been progressively worsening over the past 3 to 4 days. Patient notes that she has a history of heart failure and has had symptoms similar to this in the past and has been placed on noninvasive positive pressure ventilation 1 time but does not feel as though it is that bad currently. Patient notes that her dyspnea is worse with exertion. Patient denies history of blood clots or use of blood thinners. Patient denies chest pain, cough, fever, dysuria, decreased urine production, diarrhea, vomiting, rash, numbness, weakness, palpitations, history of abnormal heart rhythms. Patient denies any new or changed medications and she been taking all her medications as prescribed including 20 mg of furosemide. Patient notes that she called Dr. Alonzo earlier due to she wanted to know the results of the recent CT scan and had talked with them about her symptoms and was told to come get evaluated as she may be having a heart failure exacerbation. Patient denies any dietary changes or changes in her fluid intake. Further history patient notes she has not been taking isosorbide mononitrate like she is supposed to as she doesn't have any. Related Data Allergies Allergy/AdvReac Type Severity Reaction Status Date / Time No Known Drug Allergies Allergy Other Verified 02/17/23 20:20 Review of Systems Review of Systems: A 10 system review of systems was completed on the patient and is negative except for what is stated in the HPI. Nursing and ancillary documentation was reviewed. [facility] Past Medical History Medical History Abnormal echocardiogram Echocardiogram in October 29 showed low normal LV systolic function with an EF estimated 50 to 55%, severely increased LV wall thickness, grade 2 diastolic dysfunction, speckled/hyperechoic pattern of myocardium, consider infiltrative cardiomyopathy, mild aortic/mitral,/tricuspid regurgitation, and mild pulmonary hypertension with a PASP of 40 mmHg. Abnormal vaginal bleeding with endometrial thickness greater than 5 mm present on transvaginal ultrasound in postmenopausal patient Acute on chronic systolic (congestive) heart failure Anxiety Bipolar disorder COPD (chronic obstructive pulmonary disease) Coronary artery disease Severe coronary artery disease with occlusion of the circumflex following the 1st OM branch and high-grade disease in several locations of the RCA. Depression Hypertension Mediastinal lymphadenopathy Non-STEMI (non-ST elevated myocardial infarction) Pulmonary nodule Tobacco abuse Tobacco use Surgical History Surgical History History of cardiac catheterization (09/09/10) Angiographically very mild coronary artery disease on catheterization per Dr. Perales. History of tooth extraction Full mouth extraction History of tubal ligation Family History Family History Father COPD (chronic obstructive pulmonary disease) Acute myocardial infarction Mother Acute myocardial infarction Social History Social History Social History: Surrogate decision maker: Willie Varela, judi. Code status: Full code. Smoking packs per day: 0.5 Smoking cigarettes per day: 10.0 Years smoked: 40 Smoking pack-years: 20.00 Smoking status: Current every day smoker Tobacco type: cigarettes Alcohol intake: never Substance use: never Substance use type: does not use Other substance usage details: Occasional marijuana use. Living arrangements: with
[2023-05-13 21:15] VITALS: O2SAT 98
[2023-05-13] MEDS: NITROGLYCERIN SL 0.4 MG TABLET SUBLINGUAL (21:18)
[2023-05-13 21:34] LABS: Basophils Absolute Auto 0.1 K/mm3 (0.0-0.1); Basophils Percent Auto 0.7 % (0.2-1.2); Eosinophils Absolute Auto 0.1 K/mm3 (0-0.3); Eosinophils Percent Auto 1.7 % (0-4.4); Hematocrit 49.3 % (37.0-47.0); Hemoglobin 15.9 g/dL (12.0-15.0); Immature Granulocyte Absolute 0.03 K/mm3 (0.00-0.031); Immature Granulocyte Percent A 0.4 % (0-0.5); Mean Corpuscular HGB Conc 32.3 g/dl (32-36); Mean Corpuscular Hemoglobin 29.8 pg (26-34); Mean Corpuscular Volume 92.5 fl (80-100); Mean Platelet Volume 12.4 fl (7.4-10.4); Monocytes Absolute Auto 0.6 K/mm3 (0.1-0.6); Monocytes Percent Auto 6.9 % (2.6-8.5); Neutrophils Absolute Auto 5.6 K/mm3 (1.3-6.7); Neutrophils Percent Auto 69.3 % (45.5-73.1); Platelet Count Result 186 k/mm3 (150-375); Red Blood Count 5.33 M/mm3 (4.2-5.4); White Blood Count 8.1 K/mm3 (4.5-10.0)
[2023-05-13] MEDS: FUROSEMIDE INJ 40 MG/4 ML VIAL IV PUSH (21:36)
[2023-05-13] MEDS: ASPIRIN 325 MG TABLET PO (21:38)
[2023-05-13 21:44] LABS: INR 0.9; Prothrombin Time 12.8 Seconds (11.1-14.7)
[2023-05-13 21:45] LABS: Partial Thromboplastin Time 29.3 SECONDS (22.3-36.8)
[2023-05-13 22:02] LABS: D Dimer 0.36 ug/mL (<0.48)
[2023-05-13 22:05] LABS: NT Pro B Type Natriuretic Pept 2710 pg/mL (19.9-100); Troponin I 0.017 ng/mL (0.000-0.034)
[2023-05-13 22:47] VITALS: BP 199/93; PULSE 73; RESP 15; O2SAT 98
[2023-05-13] MEDS: ISOSORBIDE MONONITRATE 60 MG TAB.ER.24H PO (23:37)
[2023-05-13 23:54] LABS: Alanine Aminotransferase 20 U/L (6-35); Albumin Level 4.4 g/dL (3.5-5.1); Alkaline Phosphatase 77 U/L (38-126); Anion Gap 7 mmol/L (8-16); Aspartate Amino Transferase 25 U/L (14-36); Bilirubin,Total 0.4 mg/dL (0.2-1.3); Blood Urea Nitrogen 12 mg/dL (7-17); Calcium 9.4 mg/dL (8.4-10.2); Carbon Dioxide 31 mmol/L (22-30); Chloride 101 mmol/L (98-107); Estimated CRCL calculation 68 ml/min; Estimated Glomerular Filt Rate > 60; Glucose 121 mg/dL (65-110); Magnesium 1.9 mg/dL (1.6-2.3); Potassium 3.8 mmol/L (3.4-5.0); Sodium 139 mmol/L (137-145)
[2023-05-14 00:54] VITALS: BP 179/88; PULSE 67; RESP 16; TEMP 36.6; O2SAT 98
== END 2023-05-14 00:55 | disposition home or self-care (01) ==
PROVIDERS: Emergency Provider Student in an Organized Health Care Education/Training Program
DX: I11.0 Hypertensive heart disease with heart failure (principal); I50.23 Acute on chronic systolic (congestive) heart failure; I16.0 Hypertensive urgency; T46.3X6A Underdosing of coronary vasodilators, initial encounter; Z91.138 Patient's unintentional underdosing of medication regimen for other reason; J44.9 Chronic obstructive pulmonary disease, unspecified; I25.10 Atherosclerotic heart disease of native coronary artery without angina pectoris; I25.2 Old myocardial infarction; F17.210 Nicotine dependence, cigarettes, uncomplicated; Z79.82 Long term (current) use of aspirin; R94.31 Abnormal electrocardiogram [ECG] [EKG]
CPT/HCPCS: 36415; 71045; 80053; 83735; 83880; 84484; 85025; 85380; 85610; 85730; 93005; 96374; 99284; A9270; J1940